=== PATIENT | female | born 1945 | race Caucasian/White ===

== ENCOUNTER 2020-12-12 13:24 | Outpatient (CLI) | payer MEDICARE, SELFPAY ==
--- NOTE | 2020-12-12 | ECG_ITS ---
Measurements Intervals [place] Rate: 64 P: 33 [place]: 160 QRS: -32 QRSD: 111 T: 49 QT: 396 QTc: 411 Interpretive Statements SINUS RHYTHM ATRIAL PREMATURE COMPLEX LEFT AXIS DEVIATION INTRAVENTRICULAR CONDUCTION DELAY DELAYED PRECORDIAL R/S TRANSITION BORDERLINE ECG Electronically Signed On 12-12-2020 14:32:11 CDT by Modesto Montgomery D.O.
[2020-12-12 13:59] LABS: Anion Gap 7 mmol/L (8-16); Blood Urea Nitrogen 36 mg/dL (7-17); Calcium 9.2 mg/dL (8.4-10.2); Carbon Dioxide 31 mmol/L (22-30); Chloride 103 mmol/L (98-107); Estimated Glomerular Filt Rate 37; Glucose 130 mg/dL (65-110); Potassium 3.9 mmol/L (3.4-5.0); Sodium 141 mmol/L (137-145)
== END 2020-12-12 13:25 | disposition home or self-care (01) ==
PROVIDERS: Visit Provider Orthopaedic Surgery
DX: Z01.818 Encounter for other preprocedural examination (principal)
CPT/HCPCS: 36415; 80048; 93005

== ENCOUNTER 2021-07-02 09:10 | Outpatient (CLI) | payer MEDICARE, SELFPAY ==
--- NOTE | 2021-07-02 09:53 | ECG_ITS ---
Measurements Intervals [place] Rate: 66 P: 53 [place]: 176 QRS: -28 QRSD: 113 T: 57 QT: 394 QTc: 415 Interpretive Statements SINUS RHYTHM INTRAVENTRICULAR CONDUCTION DELAY BASELINE WANDER- I, II, AVR, AVL, AVF, V4-V6 BORDERLINE ECG Electronically Signed On 07-02-2021 12:40:51 CDT by Modesto Montgomery D.O.
[2021-07-02 10:09] LABS: Anion Gap 7 mmol/L (8-16); Blood Urea Nitrogen 32 mg/dL (7-17); Calcium 8.9 mg/dL (8.4-10.2); Carbon Dioxide 26 mmol/L (22-30); Chloride 107 mmol/L (98-107); Estimated Glomerular Filt Rate 40; Glucose 168 mg/dL (65-110); Potassium 3.6 mmol/L (3.4-5.0); Sodium 140 mmol/L (137-145)
== END 2021-07-02 09:11 | disposition home or self-care (01) ==
PROVIDERS: Visit Provider Orthopaedic Surgery Hand Surgery
DX: M79.644 Pain in right finger(s) (principal)
CPT/HCPCS: 36415; 80048; 93005

== ENCOUNTER 2021-09-02 14:55 | Outpatient (CLI) | payer MEDICARE, SELFPAY ==
--- NOTE | ~2021-09-02 | US_ITS ---
US renal BI 09/02/2021 15:35 Procedure: Realtime transabdominal ultrasound of the kidneys and bladder. Indication: Renal failure Comparison: No prior studies for comparison. Findings: Renal echotexture is normal bilaterally without hydronephrosis, contour deforming mass or r enal calculus. There is a left renal cyst measuring 2.2 cm. The right kidney measures 9 cm and left k idney measures 9.1 cm. Bladder within normal limits. Impression: 1: Left renal cyst measuring 2.2 cm. Reviewed, dictated and finalized at location A. Impression: 1: Left renal cyst measuring 2.2 cm.
== END 2021-09-02 14:56 | disposition home or self-care (01) ==
DX: N19 Unspecified kidney failure (principal); N28.1 Cyst of kidney, acquired
CPT/HCPCS: 76775

== ENCOUNTER 2021-11-18 00:47 | Day surgery (SDC) | payer MEDICARE, SELFPAY ==
[2021-11-18 07:29] VITALS: BP 151/79; PULSE 84; RESP 18; TEMP 36.4; O2SAT 100
--- NOTE | 2021-11-18 07:30 | P.HP_ITS ---
History of Present Illness History of Present Illness Consent: Risks, benefits, and alternatives have been discussed and questions answered. Patient agrees to proceed with procedure. Chief complaint: MEE Narrative: Maddie Pitts is a 76 year old female Follow-up by Dr. Moseley. Patient recently found to have iron deficiency anemia. She is referred for colonoscopy an EGD. Patient reports that her current weight appetite and bowel movements are normal. She denies abdominal pain. She has had no bleeding. She denies any nose bleeds. She has had no bruising. No obvious bleeding elsewhere. She denies abdominal pain. So stool Cologuard test 1 year ago was unremarkable and normal. Patient has been found to have a mild anemia. Head she has not yet begun iron replacement. Plan for colonoscopy in EGD today. Small-bowel follow- through if negative. Start iron replacement after endoscopy. Follow-up CBC in 1-2 months. Further recommendations may be given after endoscopy. Review of Systems Review of Systems: Review of systems noncontributory. [facility] Family History Family History (Updated 10/08/10 @ 09:40 by DOCTOR UNKNOWN) Other Diabetes mellitus Hypertension Social History Social History Smoking status: Never smoker Alcohol intake: current Substance use type: does not use Living arrangements: with family Spiritual care concerns: No Meds Home Medications and Allergies Allergies Allergy/AdvReac Type Severity Reaction Status Date / Time No Known Allergies Allergy Mild Verified 11/18/21 07:27 Exam Narrative: Physical exam reveals patient to be alert. Vital signs stable. HEENT exam is unremarkable. Patient is anicteric. Lungs are clear to auscultation and percussion. Heart is without murmur or extra sounds. Abdomen bowel sounds are present soft nontender with no organomegaly. Digital external rectal exam is normal. Assessment and Plan Assessment and plan (1) MEE (iron deficiency anemia): Code(s): D50.9 - Iron deficiency anemia, unspecified Status: Acute Assessment and Plan: Patient with new iron deficiency anemia. Plan for colonoscopy and EGD. Start iron replacement subsequently with follow-up CBC in primary care office. Further recommendations will be given after endoscopy.
[2021-11-18] MEDS: LACTATED RINGERS 1,000 ML 150 ML IV CONT (07:38)
--- NOTE | 2021-11-18 08:22 | WPDANESEPPF ---
Anes - Initial Pre Proc Eval Procedure: Operation Date: 11/18/21 08:30 Proposed Procedures p Esophagogastroduodenoscopy & Colonoscopy - Richard Ortega MD Date/Time: 11/18/21 08:22 Surgeon: Richard Ortega MD Pre Op Diagnosis: MEE Patient Data Age: 76 Gender: F Height: Weight: 80.9 kg Last Vital Signs Temp 97.6 F 11/18/21 07:29 Pulse 84 11/18/21 07:29 Resp 18 11/18/21 07:29 BP 151/79 H 11/18/21 07:29 Pulse Ox 100 11/18/21 07:29 O2 Del Method Room Air 11/18/21 07:29 Allergies Allergy/AdvReac Type Severity Reaction Status Date / Time No Known Allergies Allergy Mild Verified 11/18/21 07:27 Home Medications Medication Instructions Recorded Confirmed Type amlodipine 5 mg tablet 5 mg PO DAILY 11/18/21 11/18/21 History aspirin 81 mg tablet,delayed 81 mg PO DAILY 11/18/21 11/18/21 History release nystatin 100,000 unit/gram topical 1 applic topical DAILY 11/18/21 11/18/21 History cream nystatin 100,000 unit/gram topical 1 applic topical DAILY 11/18/21 11/18/21 History powder (Nystop) pantoprazole 40 mg tablet,delayed 40 mg PO DAILY 11/18/21 11/18/21 History release pravastatin 40 mg tablet 40 mg PO DAILY 11/18/21 11/18/21 History Patient hx anesthesia problems: none Family hx anesthesia problems: none Results Review: All pre-operative results and documents have been reviewed as part of the pre-operative evaluation. [facility] Family History Family History (Updated 10/08/10 @ 09:40 by DOCTOR UNKNOWN) Other Diabetes mellitus Hypertension Social History Social History Smoking status: Never smoker Alcohol intake: current Substance use type: does not use Living arrangements: with family Spiritual care concerns: No Anes - Eval Final PreProcedure Day of Procedure 11/18/21 08:22 Patient weight: obese Heart: regular rate and rhythm Lungs: clear to auscultation Airway: Mallampati scale class II Neurological: alert and oriented Last oral intake: >/= 8 hours ASA classification: II Emergent: no Anesthetic plan: proceed Anesthesia type and monitoring: general GIVS and standard monitoring Results Review: All pre-operative results and documents have been reviewed as part of the pre-operative evaluation. Informed Consent: The patient's anesthetic plan and its attendant risks and benefits were discussed with the patient/family/POA. Questions were solicited and answers provided to the satisfaction of the patient/family/POA.
--- NOTE | 2021-11-18 08:44 | SUR.OPER ---
EGD end 837 COLONOSCOPY start 844
[2021-11-18 08:58] VITALS: BP 112/59; PULSE 77; RESP 15; O2SAT 96
[2021-11-18 09:08] VITALS: BP 116/56; PULSE 78; RESP 20; O2SAT 99
[2021-11-18 09:18] VITALS: BP 134/80; PULSE 71; RESP 16; O2SAT 100
== END 2021-11-18 09:28 | disposition home or self-care (01) ==
PROVIDERS: Visit Provider Internal Medicine Gastroenterology
PROC: 0DJ08ZZ Inspection of Upper Intestinal Tract, Via Natural or Artificial Opening Endoscopic (ICD-10-PCS; CPT 43235; principal; 2021-11-18 08:30)
DX: D50.9 Iron deficiency anemia, unspecified (principal); Q39.4 Esophageal web; Z79.82 Long term (current) use of aspirin; E11.9 Type 2 diabetes mellitus without complications; I10 Essential (primary) hypertension
CPT/HCPCS: 43450; 43235; J2704; J7120

== ENCOUNTER 2023-05-08 12:20 | Inpatient (IN) | payer MEDICARE, SELFPAY ==
[2023-05-08] VITALS (18 sets, daily range): BP systolic 118–140; BP diastolic 61–100; PULSE 72–94; RESP 12–20; TEMP 36.4–36.8; O2SAT 94–100; BMI 36.4
--- NOTE | ~2023-05-08 | XR_ITS ---
EXAMINATION: XR chest 1V portable DATE: 05/08/2023 12:45 INDICATION: One week of chest pain TECHNIQUE: frontal view of the chest was obtained. COMPARISON: Chest radiograph dated 11/13/2008 FINDINGS: Unchanged subtle curvilinear discoid atelectasis at the lateral left lower lung zone. No other airspa ce opacities, pulmonary edema, pleural effusion or pneumothorax. The cardiomediastinal silhouette is normal. Left rotator cuff calcific tendinitis along the greater tuberosity where there is likely asso ciated mild cystic change. IMPRESSION: 1. Unchanged mild linear discoid atelectasis/scarring at the lateral left lung base. No acute cardiop ulmonary disease. Reviewed, dictated and finalized at location A. IMPRESSION: 1. Unchanged mild linear discoid atelectasis/scarring at the lateral left lung base. No acute cardiopulmonary disease.
--- NOTE | 2023-05-08 12:36 | ECG_ITS ---
Measurements Intervals [place] Rate: 77 P: 12 MT: 150 QRS: -37 QRSD: 112 T: 89 QT: 404 QTc: 457 Interpretive Statements SINUS RHYTHM LEFT AXIS DEVIATION INTRAVENTRICULAR CONDUCTION DELAY DELAYED PRECORDIAL R/S TRANSITION VOLTAGE CRITERIA FOR LVH ANTEROSEPTAL ST ELEVATION MYOCARDIAL INFARCT- ACUTE BASELINE ARTIFACT- I, II, III, AVR, AVL, AVF ABNORMAL ECG COMPARED TO ECG 07/02/2021 09:59:21 LEFT-AXIS DEVIATION NOW PRESENT STEMI NOW PRESENT Electronically Signed On 05-08-2023 18:44:41 CDT by Modesto Montgomery D.O.
--- NOTE | 2023-05-08 12:37 | ED.CHESTPAIN ---
HPI - Chest Pain General Chief Complaint: Chest Pain <Kaity Gleason PA-C - Last Filed: 05/08/23 14:05> Stated Complaint: Chest Pain <Kaity Gleason PA-C - Last Filed: 05/08/23 14:05> Time Seen by Provider: 05/08/23 12:29 <Kaity Gleason PA-C - Last Filed: 05/08/23 14:05> History of Present Illness HPI narrative: 77-year-old female with history of hypertension, hyperlipidemia and SVT presents to the emergency department for chest pain. Patient states she walks around her neighborhood every day. During the past week, she has been developing some chest pain while walking in shortly after walking that resolved after few minutes. States today while walking, the chest pain became very severe and when she got home she had an episode of nausea and vomiting. States the chest pain is substernal and radiates to her shoulders, neck and into her cheeks. States it feels very heavy and tight. Denies personal and family history of CAD, CHF, CVA. She sees mushroom cutter, Dr. Cantu for her SVT. States she has never undergone a cardiac catheterization previously. She denies cough, congestion, fever, shortness of breath, lower extremity edema, abdominal pain, fever. States her chest pain has resolved since coming to the ED. <Kaity Gleason PA-C - Last Filed: 05/08/23 14:05> Related Data Home Medications: Home Medications Medication Instructions Recorded Confirmed amlodipine 5 mg tablet 5 mg PO DAILY 11/18/21 05/08/23 aspirin 81 mg tablet,delayed 81 mg PO DAILY 11/18/21 05/08/23 release nystatin 100,000 unit/gram topical 1 applic topical DAILY PRN Rash 11/18/21 05/08/23 cream nystatin 100,000 unit/gram topical 1 applic topical DAILY PRN Rash 11/18/21 05/08/23 powder (Nystop) pantoprazole 40 mg tablet,delayed 40 mg PO DAILY 11/18/21 05/08/23 release pravastatin 40 mg tablet 40 mg PO DAILY 11/18/21 05/08/23 ferrous sulfate 325 mg (65 mg 325 mg PO DAILY 05/08/23 05/08/23 iron) tablet,delayed release <Kaity Gleason PA-C - Last Filed: 05/08/23 14:05> Allergies/Adverse Reactions: Allergies Allergy/AdvReac Type Severity Reaction Status Date / Time No Known Allergies Allergy Mild Verified 11/18/21 07:27 <Kaity Gleason PA-C - Last Filed: 05/08/23 14:05> Review of Systems Review of Systems: CONSTITUTIONAL: Denies fever, chills, or sweats. EYES: Denies visual changes, redness, or discharge. ENT: Denies rhinorrhea, congestion, sore throat, or otalgia. CARDIOVASCULAR: See HPI RESPIRATORY: Denies cough or dyspnea. GASTROINTESTINAL: See HPI GENITOURINARY: Denies dysuria or hematuria. SKIN: Denies rash or itching. MUSCULOSKELETAL: Denies back pain, joint pain, or myalgia. NEUROLOGIC: Denies headache, numbness, or weakness. PSYCHIATRIC: Denies anxiety or depression. <Kaity Gleason PA-C - Last Filed: 05/08/23 14:05> [facility] Family History Family History: Family History (Updated 05/08/23 @ 15:35 by Juliane Mendoza RN) Mother Hypercholesteremia Father Hypercholesteremia COPD (chronic obstructive pulmonary disease) Other Diabetes mellitus Hypertension <Kaity Gleason PA-C - Last Filed: 05/08/23 14:05> Social History Social History: Social History Smoking status: Never smoker Alcohol intake: current Drinks per week: 1 Substance use: never Substance use type: does not use Do You Feel Safe in your Home?: Yes Lack of Transportation: No Lack of Food: Never True Current Housing: I Have Housing Concerned About Future Housing: No Difficulty Paying Gas/Electric Bills: No Difficulty Paying for Meds: No Currently Unemployed: No Education: Decline to Answer Difficulty w/ Childcare or Family Care: No Living arrangements: with family Spiritual care concerns: Yes ( of daughter in February of this year) <Kaity Gleason PA-C - Last Filed: 04/22
[2023-05-08] MEDS: ASPIRIN 81 MG CHEWABLE TABLET 324 MG PO (13:07)
--- NOTE | 2023-05-08 13:09 | PC.NURSE ---
Provider made aware pt took 1 81mg aspirin this AM.
[2023-05-08 13:25] LABS: Basophils Absolute Auto 0.1 K/mm3 (0.0-0.1); Basophils Percent Auto 0.6 % (0.2-1.2); Eosinophils Absolute Auto 0.2 K/mm3 (0-0.3); Eosinophils Percent Auto 1.9 % (0-4.4); Hemoglobin 12.5 g/dL (12.0-15.0); Immature Granulocyte Absolute 0.04 K/mm3 (0.00-0.031); Immature Granulocyte Percent A 0.5 % (0-0.5); Lymphocytes Percent Auto 16.5 % (18.3-44.2); Mean Corpuscular HGB Conc 30.5 g/dl (32-36); Mean Corpuscular Hemoglobin 24.9 pg (26-34); Mean Corpuscular Volume 81.5 fl (80-100); Mean Platelet Volume 9.6 fl (7.4-10.4); Monocytes Absolute Auto 0.8 K/mm3 (0.1-0.6); Monocytes Percent Auto 8.9 % (2.6-8.5); Neutrophils Absolute Auto 6.1 K/mm3 (1.3-6.7); Neutrophils Percent Auto 71.6 % (45.5-73.1); Platelet Count Result 295 k/mm3 (150-375); Red Blood Count 5.03 M/mm3 (4.2-5.4); Red Cell Distribution Width 14.4 % (11.5-14.5); White Blood Count 8.5 K/mm3 (4.5-10.0)
[2023-05-08 13:28] LABS: Alanine Aminotransferase 24 U/L (6-35); Albumin Level 3.9 g/dL (3.5-5.1); Alkaline Phosphatase 95 U/L (38-126); Anion Gap 2 mmol/L (8-16); Aspartate Amino Transferase 39 U/L (14-36); Bilirubin,Total 0.4 mg/dL (0.2-1.3); Blood Urea Nitrogen 21 mg/dL (7-17); Calcium 8.9 mg/dL (8.4-10.2); Carbon Dioxide 27 mmol/L (22-30); Chloride 109 mmol/L (98-107); Estimated CRCL calculation 47 ml/min; Estimated Glomerular Filt Rate > 60; Glucose 164 mg/dL (65-110); INR 0.9; Lipase 109 U/L (23-300); Prothrombin Time 12.9 Seconds (11.1-14.7); Sodium 138 mmol/L (137-145)
[2023-05-08 13:29] LABS: Partial Thromboplastin Time 29.5 Seconds (22.3-36.8)
[2023-05-08] MEDS: TICAGRELOR 90 MG TABLET 180 MG PO (13:34)
[2023-05-08] MEDS: HEPARIN SODIUM 5,000 UNITS/ML VIAL 4000 UNITS IV PUSH (13:34)
--- NOTE | 2023-05-08 13:34 | PC.NURSE ---
[facility] [address] Cantu 1325 [facility] ETA 25min
[2023-05-08 13:41] LABS: NT Pro B Type Natriuretic Pept 6350 pg/mL (19.9-100)
--- NOTE | 2023-05-08 13:53 | PM.IMHP ---
H&P: HPI History of Present Illness Date/Time: 05/08/23 13:53 Chief Complaint: Chest pain Narrative: this is a 77-year-old woman who presents to the emergency room today with a history of chest pain and STEMI has been activated by the ED staff. She has no previous history of coronary artery disease and has been experiencing episodes of chest pain with walking and exertion for the last week to 10 days. She is going on walks with her for exercise and is notice that she develops a central chest burning discomfort that seems to be going away with rest. This morning when she went on their walk she had this same symptom and with rest it did not resolve readily and so they decided to come to the hospital for evaluation. Upon arrival her ECG was concerning for evidence of anteroseptal ST segment elevation particularly in lead V2. His very subtle ST elevation in leads 1 and aVL as well. The previous ECG in her chart do not show these findings. Interestingly her chest pain seems to have resolved in the emergency room without specific treatment or intervention. Because of these findings and the ECG abnormalities STEMI has been activated and plans are being made for emergent angiography. She is comfortable at this time and does not have any complaints. She does have a previous cardiac history of supraventricular tachycardia which she says has not been problematic recently. Past medical history is otherwise remarkable for hypertension and dyslipidemia. Review of Systems Review of Systems: ROS unobtainable: Yes unobtainable due to medical condition [facility] Family History Family History Other Diabetes mellitus Hypertension Social History Social History Smoking status: Never smoker Alcohol intake: current Substance use type: does not use Living arrangements: with family Spiritual care concerns: No Meds Home Medications and Allergies Home Medications Medication Instructions Recorded Confirmed Type amlodipine 5 mg tablet 5 mg PO DAILY 11/18/21 11/18/21 History aspirin 81 mg tablet,delayed 81 mg PO DAILY 11/18/21 11/18/21 History release nystatin 100,000 unit/gram topical 1 applic topical DAILY 11/18/21 11/18/21 History cream nystatin 100,000 unit/gram topical 1 applic topical DAILY 11/18/21 11/18/21 History powder (Nystop) pantoprazole 40 mg tablet,delayed 40 mg PO DAILY 11/18/21 11/18/21 History release pravastatin 40 mg tablet 40 mg PO DAILY 11/18/21 11/18/21 History ferrous sulfate 325 mg (65 mg 325 mg PO BID #60 tabs 11/25/21 Rx iron) tablet,delayed release Allergies Allergy/AdvReac Type Severity Reaction Status Date / Time No Known Allergies Allergy Mild Verified 11/18/21 07:27 Vital Signs Vital Signs - 24 hr 05/08/23 13:10 05/08/23 13:13 05/08/23 13:24 Temperature 36.8 C Pulse Rate 77 82 Respiratory Rate 12 19 Blood Pressure 131/86 138/76 Pulse Oximetry 100 100 Oxygen Delivery Room Air Room Air Exam Const: General: comfortable and no acute distress Other: Pleasant white female appearing her stated age in no distress of any kind HENMT: Mouth: Yes moist mucous membranes Eyes: Sclera: sclerae normal Neck: Neck: supple Other: normal carotid pulses Resp: Effort & Inspection: normal respiratory effort Auscultation: clear to auscultation bilaterally Cardio: Rate: regular rate Rhythm: regular rhythm Other: no murmur no gallop GI: GI Palp: Yes Soft to palpation Auscultation: normal bowel sounds Skin: General skin exam: normal color Neuro: Other: alert and oriented x3 Extrem: Other: no edema, good distal perfusion H&P: Results Labs Labs: Short CBC 05/08/23 Range/Units 13:10 WBC 8.5 (4.5-10.0) K/mm3 Hgb 12.5 (12.0-15.0) g/dL Hct 41.0 (37.0-47.0) % Plt Count 295 (15
--- NOTE | 2023-05-08 14:47 | ECG_ITS ---
Measurements Intervals [place] Rate: 75 P: 48 [place]: 172 QRS: -41 QRSD: 128 T: 102 QT: 402 QTc: 451 Interpretive Statements SINUS RHYTHM LEFT AXIS DEVIATION INTRAVENTRICULAR CONDUCTION DELAY SEPTAL INFARCT, RECENT BASELINE ARTIFACT- I, II, III, AVR, AVL, AVF, V4-V6 ABNORMAL ECG COMPARED TO ECG 05/08/2023 13:16:22 ST ELEVATION IMPROVING Electronically Signed On 05-08-2023 18:55:26 CDT by Modesto Montgomery D.O.
--- NOTE | 2023-05-08 14:51 | WPDCARDPROC ---
Cardiac Cath Procedure Note Date of procedure:: 05/08/23 Performing physician:: Fidel Cantu MD Indication:: ST elevation CO Brief clinical history:: this is a 77-year-old woman without any prior history of coronary disease who has been exertional chest pain for approximately 1-2 weeks. This morning she experienced exertional chest pain that did not resolve with rest and so she came to the emergency room for evaluation. Her electrocardiogram demonstrates anterior septal ST elevation. At that time in the emergency room by the time that was done she is once again asymptomatic. Because of the history and ST segment changes emergency STEMI was declared. Procedure Procedure performed:: Emergency coronary angiography emergency PCI(SIOBHAN) to the proximal LAD left ventriculography Sedation/Medication given:: fentanyl 50 mg Versed 2 mg case start time 2:03 p.m. case end time 2:38 p.m. sedation provided by Trisha Scott RN, trained observer Access site:: right femoral artery Estimated blood loss:: 30 cc Procedure note:: patient was brought to the cardiac catheterization lab in the postabsorptive state where the right femoral triangle was prepared and draped in the normal fashion. Anesthesia was provided with 1% lidocaine infiltrated locally. Using the modified Seldinger technique the femoral artery was punctured and a 6 Italian vascular sheath was placed. After this I used a 5 Italian JR4 catheter to engage and inject the right coronary artery in orthogonal projections. Following this I used a 6 Italian JL4 guiding catheter to engage and inject the left coronary artery in multiple projections. The cineangiograms were then reviewed and emergency PCI of the LAD was recommended and carried out as detailed below. Prior to PCI the patient received bolus infusion of bivalirudin for procedural anticoagulation. She had a Radi received aspirin and a loading dose of Brilinta in the emergency department. Following completion of PCI as detailed below the guidewire guiding catheter was removed and a 5 Italian angled pigtail catheter was used to measure left-sided hemodynamics and to inject the left ventriculogram in the are AO projection. The case was then terminated the sheath was sutured into position the patient was taken to the ICU for post mi/PCI recovery. Findings:: Hemodynamics: Central aortic pressure is 1 24 56 left ventricle 124/0 end-diastolic pressure 20 there is no gradient on pullback across the aortic valve. Left ventricle: The LV is moderately enlarged the entire anterior wall apical and anterolateral segments are akinetic. The global ejection fraction is 25% by visual estimation. The left coronary artery is medium in caliber but is patent the left anterior descending is a smaller caliber vessel extending down to the apex. The LAD has a subtotal 99% stenosis involving the origin of a small proximal diagonal branch. The diagonal branch has JCARLOS 1 flow in it the LAD has also JCARLOS 1 flow. This is the culprit for the patient's presentation. The circumflex is a medium caliber artery giving rise to the marginal branches. The trunk of the circumflex between the 1st and 2nd marginal branch has significant disease after the 1st OM there is about 70% stenosis and just prior to the 2nd OM there is 90% stenosis. There is however JCARLOS 3 flow in the circumflex. The right coronary artery is small to medium in caliber it is dominant to the posterior circulation there is about 50-60% stenosis in the 2nd portion of the RCA. There was JCARLOS 3 flow in this vessel. Intervention: The LAD was wired using the 0.014 aeroplane pilot 150 guidewire. This was advanced into the distal LAD there was some challenge in wiring the LAD is it had a angulated takeoff from the left main ultimately after several attempts this was done successfully. The lesion was then pre-dilated using a 2.5 x 20 mm Panterra angioplasty balloon. The eli
--- NOTE | 2023-05-08 14:59 | ADMGEN ---
This patient, Maddie Pitts, was admitted to Intensive Care Unit-5 at 1452. Patient/family oriented to hospital policies and general routines including ID bracelet, bed and alarms, visiting hours, pain management, procedures, bathroom and other care routines, personal items, smoking policy, room service/diet, and visiting hours. Information on how to activate the Rapid Response Team has been discussed. Patient/Family are encouraged to report perceived risks to care and to ask questions if they do not understand what they are told or what they should do.
[2023-05-08] MEDS: SODIUM CHLORIDE 0.9% IV 1,000 ML 125 ML IV CONT (15:30)
[2023-05-08 18:42] LABS: Cholesterol 174 mg/dL (0-200); HDL Direct 63 mg/dL; Triglycerides 206 mg/dL (<150)
[2023-05-08 18:53] LABS: LDL Cholesterol Direct 95 mg/dL
[2023-05-08] MEDS: TICAGRELOR 90 MG TABLET PO (21:58)
[2023-05-09] VITALS (35 sets, daily range): BP systolic 124–145; BP diastolic 61–117; PULSE 75–111; RESP 13–30; TEMP 36.2–37; O2SAT 95–100
--- NOTE | 2023-05-09 05:11 | ECG_ITS ---
Measurements Intervals [place] Rate: 89 P: 48 [place]: 170 QRS: -47 QRSD: 126 T: 113 QT: 376 QTc: 459 Interpretive Statements SINUS RHYTHM LEFT ANTERIOR FASCICULAR BLOCK ANTEROSEPTAL INFARCT, RECENT ABNORMAL ECG COMPARED TO ECG 05/08/2023 17:27:42 LEFT ANTERIOR FASCICULAR BLOCK NOW PRESENT Electronically Signed On 05-09-2023 13:26:41 CDT by Modesto Montgomery D.O.
[2023-05-09] MEDS: ROSUVASTATIN 10 MG TABLET 20 MG PO (08:45)
[2023-05-09] MEDS: LOSARTAN POTASSIUM 12.5 MG TABLET PO (08:45)
[2023-05-09] MEDS: ASPIRIN 81 MG CHEWABLE TABLET PO (08:45)
[2023-05-09] MEDS: TICAGRELOR 90 MG TABLET PO ×2 (08:46→20:22)
[2023-05-09] MEDS: METOPROLOL SUCCINATE EXT REL 25 MG TABCR PO (08:46)
--- NOTE | 2023-05-09 09:24 | PM.PNCARD ---
Progress Note: A&P Assessment and Plan (1) ST elevation (STEMI) myocardial infarction: Qualifiers: Involved coronary artery: unspecified coronary artery Qualified Code(s): I21.3 - ST elevation (STEMI) myocardial infarction of unspecified site Code(s): I21.3 - ST elevation (STEMI) myocardial infarction of unspecified site Status: Acute Plan 77-year-old lady with: New diagnosis of coronary artery disease presenting with acute anterior infarction yesterday with subtotal stenosis of the proximal LAD addressed with emergency stenting. Vessel is otherwise diffusely diseased but patent. She was also found to have high-grade stenosis in the trunk of the circumflex between the 1st and 2nd marginal branches as well as poor left ventricular systolic function with akinesis of the anterolateral wall. Because of this and low ejection fraction plan at the moment is for medical therapy and then staged PCI of the high-grade circumflex disease in the future. Will advance her losartan dosage today she can move out of ICU and anticipate discharge possibly in 24-48 hours depending on clinical course. Fidel Cantu MD [facility] Subjective Date/time seen: Date of service 05/09/23 09:24 Interval history: Follow-up visit in this 77-year-old lady with: New diagnosis of coronary artery disease presenting yesterday with chest pain ST elevation [place]. She was brought to the cardiac laborer wrecking and salvaging and had subtotal stenosis of the proximal LAD addressed successfully with drug-eluting stent. She feels well this morning and offers no complaints. Exam Const: General: comfortable and no acute distress Other: Pleasant overweight white female no apparent distress HENMT: Mouth: Yes moist mucous membranes Eyes: Sclera: sclerae normal Neck: Neck: supple and no JVD Resp: Effort & Inspection: normal respiratory effort Auscultation: clear to auscultation bilaterally Cardio: Rate: regular rate Rhythm: regular rhythm GI: GI Palp: Yes Soft to palpation Auscultation: normal bowel sounds Skin: General skin exam: normal color Neuro: Other: Alert and oriented x3 Extrem: Other: No edema, no hematoma at right groin puncture site Objective Data Vital Signs Vital Signs: Vital Signs - 24 hr 05/08/23 13:10 05/08/23 13:13 05/08/23 13:24 Temperature 36.8 C Pulse Rate 77 82 Respiratory Rate 12 19 Blood Pressure 131/86 138/76 Pulse Oximetry 100 100 Oxygen Delivery Room Air Room Air 05/08/23 14:47 05/08/23 15:02 05/08/23 15:32 Temperature Pulse Rate 76 82 72 Respiratory Rate 19 17 15 Blood Pressure 127/71 126/75 125/63 Pulse Oximetry 98 97 100 Oxygen Delivery 05/08/23 16:32 05/08/23 16:00 05/08/23 16:00 Temperature Pulse Rate 78 73 73 Respiratory Rate 15 17 Blood Pressure 123/65 Pulse Oximetry 100 100 Oxygen Delivery Room Air 05/08/23 18:00 05/08/23 18:00 05/08/23 18:30 Temperature Pulse Rate 78 79 74 Respiratory Rate 14 16 Blood Pressure 138/77 140/61 Pulse Oximetry 100 98 Oxygen Delivery 05/08/23 20:00 05/08/23 20:00 05/08/23 20:00 Temperature 36.4 C L Pulse Rate 77 76 Respiratory Rate 18 Blood Pressure 124/67 Pulse Oximetry 96 Oxygen Delivery Room Air 05/08/23 21:00 05/08/23 22:00 05/09/23 00:00 Temperature Pulse Rate 80 94 Respiratory Rate 19 Blood Pressure 137/68 Pulse Oximetry 95 Oxygen Delivery Room Air 05/09/23 00:00 05/09/23 02:00 05/09/23 04:00 Temperature Pulse Rate 86 86 Respiratory Rate Blood Pressure Pulse Oximetry Oxygen Delivery Room Air 05/08/23 22:16 05/08/23 22:31 05/08/23 22:46 Temperature Pulse Rate 82 82 84 Respiratory Rate 20 18 19 Blood Pressure 136/65 135/64 124/75 Pulse Oximetry 95 94 97 Oxygen Delivery 05/08/23 23:17 05/08/23 23:31 05/08/23 23:46 Temperature Pulse Rate 81 84 81 Respiratory Rate 17 14 12 Blood Pressure 139/76 118/100 H 131/7
--- NOTE | 2023-05-09 09:46 | WPDCNINT ---
Assessment and Plan Assessment and plan (1) ST elevation (STEMI) myocardial infarction: Qualifiers: Involved coronary artery: unspecified coronary artery Qualified Code(s): I21.3 - ST elevation (STEMI) myocardial infarction of unspecified site Code(s): I21.3 - ST elevation (STEMI) myocardial infarction of unspecified site Status: Acute Assessment and Plan: Status post cardiac catheterization 1.? ? Right coronary dominant circulation with three-vessel coronary artery disease acute anterior wall IN is due to subtotal occlusion of the proximal LAD with a medium size LAD and the stenosis is at the origin of the 1st medium size diagonal branch. 2.? ? Successful emergency PCI of this lesion using the 2.75 x 18 mm Yassetsiro? stent in this segment of the LAD resulting in a nice angiographic result at the site of the target lesion.? There is JCARLOS 3 flow into the LAD down to the apex the distal LAD in this elderly lady is angiographically quite small.? Once again the diagonal is jailed and occluded by this intervention 3. ? 90% stenosis in the circumflex trunk between the 1st and 2nd marginal branches. 4.? ? 50-60% stenosis in the 2nd portion of the RCA 5. ? severe left ventricular systolic dysfunction hoping most of this is stunned myocardium as the LAD was not occluded and the anterior leads in the patient's ECG do not demonstrate Q-waves. 6.? ? If the patient remains stable PCI of the circumflex disease will be done in a staged fashion following discharge from and recovery from this emergency.? Very poor LV function at this time would make PCI of the non infarct related vessel rather high risk Cardiology plans to do repeat cardiac catheterization and attempt PCI of circumflex artery as an outpatient Aspirin Brilinta metoprolol losartan rosuvastatin nurse monitoring Echo ordered (2) Essential hypertension: Code(s): I10 - Essential (primary) hypertension Status: Acute Assessment and Plan: Patient was on amlodipine at home and has now been started on beta-german and losartan Will uptitrate does and re add Norvasc if needed (3) Hyperlipidemia: Code(s): E78.5 - Hyperlipidemia, unspecified Status: Acute Assessment and Plan: Rosuvastatin Plan DVT prophylaxis -anticipate patient will ambulate today Nutrition -heart healthy Code Status - Full Code Transfer out of ICU today Sieve Repairer Consult Note Consult date: 05/09/23 Reason for consult: STEMI HPI: Maddie Pitts is a 77 year old female with past medical history of hyperlipidemia hypertension SVT presented to ER with chief complaint of chest pain. Chest pain started while walking, 10 out 10 severe, heaviness and tightness in quality, associated with nausea vomiting, radiated to her shoulder and neck. All other systems were reviewed and were negative. Patient presented to ER and was diagnosed with ST segment elevation [place]. she was taken to cardiac catheterization lab and underwent cardiac catheterization which showed 1.? ? Right coronary dominant circulation with three-vessel coronary artery disease acute anterior wall IN is due to subtotal occlusion of the proximal LAD with a medium size LAD and the stenosis is at the origin of the 1st medium size diagonal branch. 2.? ? Successful emergency PCI of this lesion using the 2.75 x 18 mm Yassetsiro? stent in this segment of the LAD resulting in a nice angiographic result at the site of the target lesion.? There is JCARLOS 3 flow into the LAD down to the apex the distal LAD in this elderly lady is angiographically quite small.? Once again the diagonal is jailed and occluded by this intervention 3. ? 90% stenosis in the circumflex trunk between the 1st and 2nd marginal branches. 4.? ? 50-60% stenosis in the 2nd portion of the RCA 5. ? severe left ventricular systolic dysfunction hoping most of this is stunned myocardium as the LAD was not occluded and the anterior leads in the patient's ECG do not demonst
[2023-05-10] VITALS (15 sets, daily range): BP systolic 110–134; BP diastolic 54–80; PULSE 7–163; RESP 18–26; TEMP 36.8–36.9; O2SAT 92–97
--- NOTE | 2023-05-10 | ECHO_ITS ---
Patient Info Name: Maddie Pitts Age: 77 years : 1945 Gender: Female Ht: 61 in Wt: 192 lbs BSA: 1.98 m2 HR: 75 bpm BP: 113 / 80 mmHg Heart Rhythm: Sinus Rhythm Technical Quality: Good Exam Date: 05/10/2023 6:37 AM Exam Location: Echo Lab Patient Status: Inpatient Admit Date: 05/08/2023 Staff Ordering Physician: Shai Bustamante MD Associate Attorney: Lilli Baron RDCS Attending Provider: Fidel Cantu MD Exam Type: CA echo dop color flow w con Study Info Indications - stemi Complete two-dimensional, color flow and Doppler transthoracic echocardiogram is performed with contrast to opacify the left ventricle and to improve the deliniation of the left ventricle endocardial borders. Contrast/Agitated Saline Contrast/Ag. Saline: Definity Amount: 2.00 ml Administered By: Lilli Baron RDCS Existing IV Access: Yes IV Access Condition: patent with no signs of infiltration Summary 1. Definity contrast used to improve visualization. 2. Mild left ventricular enlargement with large area of akinesis involving the mid to apical anterior wall, mid to apical septum, apical lateral wall and dyskinesis of the apex. 3. Mildly sclerotic aortic valve which opens normally. 4. Trivial mitral and tricuspid valve regurgitation. Left Ventricle Left ventricular chamber dimension is mildly enlarged. Left ventricular systolic function is severely reduced, estimated at 25-30%. The left ventricular diastolic function is grade I diastolic dysfunction. Right Ventricle Right ventricular chamber dimension is normal. Left Atria Left atrial chamber dimension is normal. Right Atria Right atrial chamber dimension is normal. Aortic Valve The aortic valve is trileaflet. There is mild aortic valve sclerosis. Pulmonic Valve The pulmonic valve is not well visualized. Mitral Valve The mitral valve has normal leaflets. There is trace mitral valve regurgitation. Tricuspid Valve The tricuspid valve leaflets are normal. There is trace tricuspid valve regurgitation. Pericardium/Pleural The pericardium appears normal. Aorta The aortic root size at the sinus of Valsalva is normal. Left Ventricular Outflow Tract Name Value Normal LVOT 2D LVOT Diameter 1.95 cm LVOT Doppler LVOT Peak Gradient 4 mmHg LVOT Mean Gradient 2 mmHg LVOT VTI 15.98 cm LVOT VTI/AV VTI Ratio 0.55 LVOT Stroke Volume 47.77 ml LVOT CO 3.61 l/min LVOT CI 1.83 L/min/m2 Pulmonic Valve Name Value Normal RVOT Doppler RVOT Peak Gradient 2 mmHg PV Doppler PV Peak Gradient 4 mmHg Mitral Valve
[2023-05-10] MEDS: PERFLUTREN LIPID MICROSPHERES 1.5 ML VIAL DILUTED TO 10 ML TOTAL VOLUME IV PUSH (08:14)
[2023-05-10] MEDS: ASPIRIN 81 MG CHEWABLE TABLET PO (08:58)
[2023-05-10] MEDS: FERROUS SULFATE 325 MG TABLET DR PO (08:58)
[2023-05-10] MEDS: LOSARTAN POTASSIUM 25 MG TABLET PO (08:58)
[2023-05-10] MEDS: METOPROLOL SUCCINATE EXT REL 25 MG TABCR PO (08:59)
[2023-05-10] MEDS: ROSUVASTATIN 10 MG TABLET 20 MG PO (08:59)
[2023-05-10] MEDS: PANTOPRAZOLE 40 MG TABLET PO (08:59)
[2023-05-10] MEDS: TICAGRELOR 90 MG TABLET PO ×2 (08:59→20:04)
--- NOTE | 2023-05-10 09:10 | PM.PNCARD ---
Progress Note: A&P Assessment and Plan (1) ST elevation (STEMI) myocardial infarction: Qualifiers: Involved coronary artery: unspecified coronary artery Qualified Code(s): I21.3 - ST elevation (STEMI) myocardial infarction of unspecified site Code(s): I21.3 - ST elevation (STEMI) myocardial infarction of unspecified site Status: Acute Assessment and Plan: New diagnosis of coronary artery disease presenting with acute anterior infarction yesterday with subtotal stenosis of the proximal LAD addressed with emergency stenting. Vessel is otherwise diffusely diseased but patent. She was also found to have high-grade stenosis in the trunk of the circumflex between the 1st and 2nd marginal branches as well as poor left ventricular systolic function with akinesis of the anterolateral wall. DAPT with ASA indefinitely and Brilinta for one year High intensity statin Risk factor modification for CAD staged PCI of the high-grade circumflex disease in the future Probably discharge tomorrow (2) Essential hypertension: Code(s): I10 - Essential (primary) hypertension Status: Acute Assessment and Plan: At goal (3) Hyperlipidemia: Code(s): E78.5 - Hyperlipidemia, unspecified Status: Acute Assessment and Plan: Continue high intensity statin, LDL goal <70 (4) Atrial fibrillation: Code(s): I48.91 - Unspecified atrial fibrillation Status: Acute Assessment and Plan: Episode of atrial fibrillation with RVR this morning. She was placed on an amiodarone drip and converted to sinus rhythm. Will stop amiodarone drip at this point and have no current plans to anticoagulate her as her AF was very brief and we want to avoid triple therapy with ASA, Brilinta, and DOAC Subjective Date/time seen: 05/10/23 09:10 Interval history: Follow-up visit in this 77-year-old lady with: New diagnosis of coronary artery disease presenting yesterday with chest pain ST elevation [place]. She was brought to the cardiac director of cardiac cath lab and had subtotal stenosis of the proximal LAD addressed successfully with drug-eluting stent. She feels well this morning and offers no complaints. Date of service 05/10/2023: Went into AF RVR while ambulating to the bathroom this morning. She was asymptomatic. She denies any chest pain or shortness of breath. Review of Systems Review of Systems: All systems reviewed & are unremarkable except as noted in HPI and below Exam Const: General: comfortable and no acute distress Other: Pleasant overweight white female no apparent distress. Lying comfortably in ICU bed 5 with her at the bedside. HENMT: Mouth: Yes moist mucous membranes Eyes: Sclera: sclerae normal Neck: Neck: supple and no JVD Other: normal carotid pulses Resp: Effort & Inspection: normal respiratory effort Auscultation: clear to auscultation bilaterally Cardio: Rate: regular rate Rhythm: regular rhythm Other: no murmur no gallop GI: Auscultation: normal bowel sounds Skin: General skin exam: normal color Neuro: Other: Alert and oriented x3 Extrem: Other: No edema, no hematoma at right groin puncture site Objective Data Vital Signs Vital Signs: Vital Signs - 24 hr 05/09/23 10:00 05/09/23 10:00 05/09/23 12:00 Temperature Pulse Rate 88 88 Respiratory Rate 18 Blood Pressure 124/77 Pulse Oximetry 98 98 Oxygen Delivery Room Air 05/09/23 12:00 05/09/23 12:00 05/09/23 12:31 Temperature 37.0 C Pulse Rate 101 H 83 Respiratory Rate 20 Blood Pressure 127/68 Pulse Oximetry 100 Oxygen Delivery 05/09/23 14:00 05/09/23 16:00 05/09/23 16:00 Temperature 36.9 C Pulse Rate 86 95 80 Respiratory Rate 20 Blood Pressure 125/72 Pulse Oximetry 100 Oxygen Delivery 05/09/23 16:00 05/09/23 18:00 05/09/23 20:00 Temperature Pulse Rate 89 94 Respiratory Rate Blood Pressure Puls
--- NOTE | 2023-05-10 09:12 | ECG_ITS ---
Measurements Intervals [place] Rate: 136 P: [place]: 0 QRS: -36 QRSD: 122 T: 130 QT: 288 QTc: 433 Interpretive Statements ATRIAL FIBRILLATION WITH RAPID VENTRICULAR RESPONSE LEFT AXIS DEVIATION INTRAVENTRICULAR CONDUCTION DELAY LEFT VENTRICULAR HYPERTROPHY WITH ST-T CHANGE ANTEROSEPTAL ST ELEVATION MYOCARIDAL INJURY- ACUTE BASELINE ARTIFACT- I, II, III, AVR, AVL, AVF, V6 ABNORMAL ECG COMPARED TO ECG 05/09/2023 09:02:48 ATRIAL FIBRILLATION NOW PRESENT LEFT-AXIS DEVIATION NOW PRESENT STEMI NOW PRESSENT Electronically Signed On 05-10-2023 10:26:28 CDT by Modesto Montgomery D.O.
[2023-05-10] MEDS: AMIODARONE 150 MG/D5W 100 ML 150 MG/100 ML BAG 600 MG IV CONT (10:03)
[2023-05-10] MEDS: AMIODARONE 360 MG/D5W 200 ML 360 MG/200 ML BAG 33.33 MG IV CONT (10:03)
--- NOTE | 2023-05-10 11:47 | IVDEFINITY ---
Prior to administration of IV Definity the patient was educated on the risks and benefits of the imaging enhancing agent including potential adverse side effects. The patient verbalized understanding. Allergies were verified. No exclusion criteria were identified and at least one of the following inclusion criteria were met: 1) physician request, 2) patient technically difficult to image (per the [place] [employer] guidelines of two or more segments not discernable within the apical view), or 3) questionable left ventricular function. ?
[2023-05-11] VITALS (9 sets, daily range): BP systolic 122–130; BP diastolic 54–88; PULSE 75–94; RESP 14–20; TEMP 36.8–37; O2SAT 95–97
--- NOTE | 2023-05-11 08:52 | PM.DS ---
DS: Admitting Diagnosis Discharge Date 05/11/2023 Admitting Diagnosis STEMI DS: Discharge Diagnosis Discharge Diagnosis (1) ST elevation (STEMI) myocardial infarction: Qualifiers: Involved coronary artery: unspecified coronary artery Qualified Code(s): I21.3 - ST elevation (STEMI) myocardial infarction of unspecified site Code(s): I21.3 - ST elevation (STEMI) myocardial infarction of unspecified site Status: Acute Assessment and Plan: New diagnosis of coronary artery disease presenting with acute anterior infarction yesterday with subtotal stenosis of the proximal LAD addressed with emergency stenting. Vessel is otherwise diffusely diseased but patent. She was also found to have high-grade stenosis in the trunk of the circumflex between the 1st and 2nd marginal branches as well as poor left ventricular systolic function with akinesis of the anterolateral wall. DAPT with ASA indefinitely and Brilinta for one year High intensity statin Risk factor modification for CAD staged PCI of the high-grade circumflex disease in the future Stable and appropriate for discharge today Will arrange for outpatient follow up (2) Essential hypertension: Code(s): I10 - Essential (primary) hypertension Status: Acute Assessment and Plan: At goal (3) Hyperlipidemia: Code(s): E78.5 - Hyperlipidemia, unspecified Status: Acute Assessment and Plan: Continue high intensity statin, LDL goal <70 (4) Atrial fibrillation: Code(s): I48.91 - Unspecified atrial fibrillation Status: Acute Assessment and Plan: Episode of atrial fibrillation with RVR yesterday. She was placed on an amiodarone drip and converted to sinus rhythm. Will stop amiodarone drip at this point and have no current plans to anticoagulate her as her AF was very brief and we want to avoid triple therapy with ASA, Brilinta, and DOAC DS: Summary Hospital Course Hospital Course: Presented with chest pain and was diagnosed with ST segment elevation [place]. she was taken to cardiac catheterization lab and underwent cardiac catheterization which showed 1. Right coronary dominant circulation with three-vessel coronary artery disease acute anterior wall IN is due to subtotal occlusion of the proximal LAD with a medium size LAD and the stenosis is at the origin of the 1st medium size diagonal branch. 2. Successful emergency PCI of this lesion using the 2.75 x 18 mm Orsiro stent in this segment of the LAD resulting in a nice angiographic result at the site of the target lesion. There is JCARLOS 3 flow into the LAD down to the apex the distal LAD in this elderly lady is angiographically quite small. Once again the diagonal is jailed and occluded by this intervention 3. 90% stenosis in the circumflex trunk between the 1st and 2nd marginal branches. 4. 50-60% stenosis in the 2nd portion of the RCA 5. severe left ventricular systolic dysfunction hoping most of this is stunned myocardium as the LAD was not occluded and the anterior leads in the patient's ECG do not demonstrate Q-waves. 6. If the patient remains stable PCI of the circumflex disease will be done in a staged fashion following discharge from and recovery from this emergency. Very poor LV function at this time would make PCI of the non infarct related vessel rather high risk She recovered well post PCI and had no significant complications. She did have brief atrial fibrillation but converted back to sinus rhythm on amiodarone. Time Spent with Patient Time attestation: Total time spent providing and/or coordinating discharge services: Exam Const: General: comfortable and no acute distress Other: Pleasant overweight white female no apparent distress. Lying comfortably in ICU bed 5 with her at the bedside. HENMT: Mouth: Yes moist mucous membranes Eyes: Sclera: sclerae normal Neck: Neck: supple and no JVD Other: normal carotid
[2023-05-11] MEDS: ROSUVASTATIN 10 MG TABLET 20 MG PO (08:58)
[2023-05-11] MEDS: TICAGRELOR 90 MG TABLET PO (08:58)
[2023-05-11] MEDS: ASPIRIN 81 MG CHEWABLE TABLET PO (08:58)
[2023-05-11] MEDS: LOSARTAN POTASSIUM 25 MG TABLET PO (08:58)
[2023-05-11] MEDS: PANTOPRAZOLE 40 MG TABLET PO (08:58)
[2023-05-11] MEDS: METOPROLOL SUCCINATE EXT REL 25 MG TABCR PO (08:58)
[2023-05-11] MEDS: FERROUS SULFATE 325 MG TABLET DR PO (08:59)
--- NOTE | 2023-05-11 09:11 | PC.NURSE ---
Assisted patient up to bedside commode without issue. No sign or symptom of distress noted.
== END 2023-05-11 12:40 | disposition home or self-care (01) | DRG 322 ==
LOC: ANHED 12:46 → ANHICU 14:25
PROVIDERS: Admitting Provider Specialist; Emergency Provider Physician Assistant; Visit Provider Nurse Practitioner
PROC: 4A023N7 Measurement of Cardiac Sampling and Pressure, Left Heart, Percutaneous Approach (ICD-10-PCS; CPT 93452; principal; 2023-05-08 13:40)
PROC: 027034Z Dilation of Coronary Artery, One Artery with Drug-eluting Intraluminal Device, Percutaneous Approach (ICD-10-PCS; 2023-05-08 13:40)
DX: I21.3 ST elevation (STEMI) myocardial infarction of unspecified site (principal); T82.897A Other specified complication of cardiac prosthetic devices, implants and grafts, initial encounter; I47.10 Supraventricular tachycardia, unspecified; Y71.2 Prosthetic and other implants, materials and accessory cardiovascular devices associated with adverse incidents; I25.10 Atherosclerotic heart disease of native coronary artery without angina pectoris; I10 Essential (primary) hypertension; E78.5 Hyperlipidemia, unspecified; Z79.82 Long term (current) use of aspirin
CPT/HCPCS: 36415; 71045; 80053; 80061; 83690; 83880; 84484; 85025; 85610; 85730; 93005; 93458; 96374; 99285; A9270; C1725; C1769; C1784; C1887; C1894; C8929; C9606; J0282; J0583; J1644; J2250; J3010; J7030; Q9957

== ENCOUNTER 2023-05-22 07:25 | Observation (INO) | payer MEDICARE, SELFPAY ==
[2023-05-22] VITALS (23 sets, daily range): BP systolic 116–138; BP diastolic 50–107; PULSE 65–149; RESP 15–21; TEMP 36.2–36.7; O2SAT 94–99; BMI 33.1
--- NOTE | ~2023-05-22 | XR_ITS ---
XR chest 2V DATE: 05/22/2023 08:20 INDICATION: Elevated heart rate. History of atrial fibrillation. TECHNIQUE: PA and lateral views COMPARISON: 05/08/2023 portable AP chest FINDINGS: There are bilateral Kaitlin B-lines and prominence of the fissures and small pleural effusio ns, consistent with mild congestive change. Heart size appears within normal range. Is aortic arch calcification. No pulmonary consolidation or pneumothorax. Status post cholecystectomy. IMPRESSION: Pulmonary interstitial and subpleural edema and small pleural effusions consistent with m ild congestive change Reviewed, dictated and finalized at location A. IMPRESSION: Pulmonary interstitial and subpleural edema and small pleural effus ions consistent with mild congestive change
--- NOTE | 2023-05-22 07:31 | ECG_ITS ---
Measurements Intervals [place] Rate: 157 P: IN: 0 QRS: -49 QRSD: 105 T: 131 QT: 274 QTc: 443 Interpretive Statements ATRIAL FIBRILLATION WITH RAPID VENTRICULAR RESPONSE LEFT ANTERIOR FASCICULAR BLOCK CANNOT RULE OUT SEPTAL INFARCT, AGE INDETERMINATE ST-T WAVE ABNORMALITY IN HIGH LATERAL LEADS- CONSIDER ISCHEMIA BASELINE ARTIFACT- I, II, III, AVR, V4-V6 ABNORMAL ECG COMPARED TO ECG 05/10/2023 08:56:16 LEFT ANTERIOR FASCICULAR BLOCK NOW PRESENT Electronically Signed On 05-22-2023 7:41:42 CDT by Modesto Montgomery D.O.
[2023-05-22] MEDS: ASPIRIN 81 MG CHEWABLE TABLET 324 MG PO (07:41)
[2023-05-22] MEDS: METOPROLOL TARTRATE 25 MG TABLET PO ×2 (07:53→12:11)
[2023-05-22] MEDS: METOPROLOL TARTRATE INJ 5 MG/5 ML VIAL IV PUSH ×2 (07:53→12:08)
[2023-05-22 08:00] LABS: Basophils Absolute Auto 0.1 K/mm3 (0.0-0.1); Basophils Percent Auto 0.7 % (0.2-1.2); Eosinophils Absolute Auto 0.3 K/mm3 (0-0.3); Hematocrit 39.7 % (37.0-47.0); Hemoglobin 12.2 g/dL (12.0-15.0); Immature Granulocyte Absolute 0.05 K/mm3 (0.00-0.031); Immature Granulocyte Percent A 0.6 % (0-0.5); Lymphocytes Absolute Auto 1.16 K/mm3 (0.9-3.2); Lymphocytes Percent Auto 13.9 % (18.3-44.2); Mean Corpuscular HGB Conc 30.7 g/dl (32-36); Mean Corpuscular Hemoglobin 25.2 pg (26-34); Mean Platelet Volume 9.5 fl (7.4-10.4); Monocytes Absolute Auto 0.8 K/mm3 (0.1-0.6); Monocytes Percent Auto 9.1 % (2.6-8.5); Neutrophils Percent Auto 71.7 % (45.5-73.1); Platelet Count Result 389 k/mm3 (150-375); Red Blood Count 4.84 M/mm3 (4.2-5.4); Red Cell Distribution Width 14.2 % (11.5-14.5); White Blood Count 8.4 K/mm3 (4.5-10.0)
[2023-05-22 08:08] LABS: Alanine Aminotransferase 16 U/L (6-35); Alkaline Phosphatase 94 U/L (38-126); Anion Gap 6 mmol/L (4-12); Aspartate Amino Transferase 25 U/L (14-36); Bilirubin,Total 0.7 mg/dL (0.2-1.3); Blood Urea Nitrogen 15 mg/dL (7-17); Calcium 9.2 mg/dL (8.4-10.2); Carbon Dioxide 22 mmol/L (22-30); Chloride 111 mmol/L (98-107); Estimated CRCL calculation 39 ml/min; Estimated Glomerular Filt Rate 48; Glucose 169 mg/dL (65-110); Lipase 115 U/L (23-300); Potassium 3.8 mmol/L (3.4-5.0); Sodium 139 mmol/L (137-145)
[2023-05-22 08:30] LABS: Partial Thromboplastin Time 32.2 Seconds (22.3-36.8); Prothrombin Time 13.7 Seconds (11.1-14.7)
--- NOTE | 2023-05-22 10:34 | ECG_ITS ---
Measurements Intervals [place] Rate: 120 P: [place]: 0 QRS: -46 QRSD: 103 T: 149 QT: 299 QTc: 423 Interpretive Statements ATRIAL FIBRILLATION WITH RAPID VENTRICULAR RESPONSE LEFT ANTERIOR FASCICULAR BLOCK CANNOT RULE OUT SEPTAL INFARCT, AGE INDETERMINATE ST-T WAVE ABNORMALITY IN HIGH LATERAL LEADS- CONSIDER ISCHEMIA ABNORMAL ECG COMPARED TO ECG 05/22/2023 07:38:33 NO SIGNIFICANT CHANGES Electronically Signed On 05-22-2023 16:42:23 CDT by Modesto Montgomery D.O.
--- NOTE | 2023-05-22 10:42 | ED.ARRPALP ---
HPI - Arrhythmia/Palpitations General Chief Complaint: Arrhythmia/Palpitations Stated Complaint: elevated HR Time Seen by Provider: 05/22/23 07:41 History of Present Illness HPI narrative: Patient presenting here with palpitations, she woke up around 3 this morning and just felt like her heart was beating out of her chest and generally unwell. and she recently had catheterization with stents placed the was told that due to her low EF they were going to defer her 2nd stent. Related Data Home Medications Medication Instructions Recorded Confirmed nystatin 100,000 unit/gram topical 1 applic topical DAILY PRN Rash 11/18/21 05/08/23 cream nystatin 100,000 unit/gram topical 1 applic topical DAILY PRN Rash 11/18/21 05/08/23 powder (Nystop) ferrous sulfate 325 mg (65 mg 325 mg PO DAILY 05/08/23 05/08/23 iron) tablet,delayed release Allergies Allergy/AdvReac Type Severity Reaction Status Date / Time No Known Allergies Allergy Mild Verified 11/18/21 07:27 Review of Systems Review of Systems: CONST: No fever. HEENT: No sore throat C/V: palpitations RESP: short of breath GI: No abdominal pain : No dysuria. M/S: No joint pain. SKIN: No rash. NEURO: [No headache or focal numbness or weakness] PSYCH: [No depression] [facility] Past Medical History Medical History Atrial fibrillation Essential hypertension Hyperlipidemia MEE (iron deficiency anemia) ST elevation (STEMI) myocardial infarction 05/08/23 Family History Family History Mother Hypercholesteremia Father Hypercholesteremia COPD (chronic obstructive pulmonary disease) Other Diabetes mellitus Hypertension Social History Social History Smoking status: Never smoker Alcohol intake: never Drinks per week: 1 Substance use: never Substance use type: does not use Do You Feel Safe in your Home?: Yes Lack of Transportation: No Lack of Food: Never True Current Housing: I Have Housing Concerned About Future Housing: No Difficulty Paying Gas/Electric Bills: No Difficulty Paying for Meds: No Currently Unemployed: No Education: Grade School Difficulty w/ Childcare or Family Care: No Living arrangements: with family Spiritual care concerns: No Exam Narrative: EXAMINATION OF ORGAN SYSTEMS/BODY AREAS: Constitutional: Vital signs per nursing GENERAL: Appears slightly tired HEAD: Normal with no signs of head trauma. EYES: EOMI, conjunctiva normal ENT: Hearing grossly intact LUNGS: Nonlabored breathing. HEART: irregularly irregular, fast ABD: [Soft], [nontender to palpation] EXT: Normal range of motion SKIN: [No rashes or lesions.] NEURO: [Alert and oriented x 3. No gross focal sensory or strength deficits.] PSYCH: Normal affect Course Vital Signs Vital signs: Vital Signs Pulse Rate 140 H 05/22/23 07:46 Respiratory Rate 16 05/22/23 07:46 Blood Pressure 128/94 H 05/22/23 07:46 Pulse Oximetry 98 05/22/23 07:46 Temperature 97.8 F 05/22/23 15:36 Pulse Rate 65 05/22/23 15:36 Respiratory Rate 18 05/22/23 15:36 Blood Pressure 124/63 05/22/23 15:36 Pulse Oximetry 98 05/22/23 15:36 MDM - Arrhythmia/Palpitations MDM Narrative Medical decision making narrative: 1) Differential diagnosis: afib w/ rvr, ACS, lyte abnl, dehydration 2) Comorbidities: CHF with low EF, CAD 3) External notes reviewed: cardiology notes, inpt admission records 4) History sources independently obtained from: EMR, at bedside, 5) Discussion of management with: cardiology, hospitalist 6) Independent interpretation of: initial EKG done at 7:38 a.m.: Atrial fibrillation with RVR, rate 157, normal QRS, QTC 443, left axis. Difficult to appreciate ST changes given rapid rate. repeat EKG 1034, rate 120 AFib
[2023-05-22 11:02] LABS: Troponin I 0.168 ng/mL (0.000-0.034)
[2023-05-22] MEDS: HEPARIN SODIUM 5,000 UNITS/ML VIAL 5000 UNITS IV PUSH (12:09)
[2023-05-22] MEDS: HEPARIN SOD/D5W 100 UNITS/ML 25,000 UNITS/250 ML BAG 11 UNITS IV CONT (12:09)
--- NOTE | 2023-05-22 12:31 | ADMGEN ---
This patient, Maddie Pitts, was admitted to IMU Room 205-02. Patient/family oriented to hospital policies and general routines including ID bracelet, bed and alarms, visiting hours, pain management, procedures, bathroom and other care routines, personal items, smoking policy, room service/diet, and visiting hours. Information on how to activate the Rapid Response Team has been discussed. Patient/Family are encouraged to report perceived risks to care and to ask questions if they do not understand what they are told or what they should do.
--- NOTE | 2023-05-22 12:33 | PM.IMHP ---
H&P: HPI History of Present Illness Date/Time: 05/22/23 12:33 Chief Complaint: Palpitations Narrative: 77 y/o F presents here with palpitations with PMH of CAD, cardiac stent x1, Afib, HTN, SVT (only 1 occurrence, 2021), MEE, and HLD. Patient presented here for further evaluation of palpitations. Patient was woken up from her sleep with palpitations around 0300 this morning. Palpitations were intermittent. Describes the palpitations as if her heart was beating out of her chest. Associated general malaise. No associated shortness of breath, chest pain, nausea, vomiting, fatigue, syncope, pre-syncope sensation, or GERD like symptoms. Recently underwent a cardiac catheterization with 1 stent placed on 05/08/23 here at [facility]. Unable to place 2nd stent due to patient's low EF. If the patient remains stable post-stent placement, PCI of the circumflex disease will be done in a staged fashion following discharge from and recovery from this emergency. Also developed Afib during admission, had one brief episode years ago that was asymptomatic and short lived without reoccurrence, was not started on medications then. Now on XX and anticoagulation. Has follow-up appt on 05/31 or 06/01, with Adrianne DEE here. Upon arrival to the ED patient's HR was found to be in the 140's. Once rate was controlled, patient's sensation of palpitations resolved and general malaise resolved. No further complaints. Initial VS at presentation: 98? F, HR 140, RR 16, 128/94, and 98% on RA. ED workup showed: no leukocytosis, no anemia, creatinine 1.1, glucose 169, and initial troponin 0.110. EKG showed AFib with RVR with rate of 157. CXR showed?pulmonary interstitial and subpleural edema and small pleural effusions consistent with mild congestive change. Review of Systems Review of Systems: All systems reviewed & are unremarkable except as noted in HPI and below [facility] Past Medical History Medical History (Updated 05/22/23 @ 13:25 by Jhoan Kennedy MD) Atrial fibrillation Essential hypertension Hyperlipidemia MEE (iron deficiency anemia) ST elevation (STEMI) myocardial infarction 05/08/23 Surgical History Surgical History (Updated 05/22/23 @ 20:19 by Brisa E. Nenita, CORPORATE OPERATIONS COMPLIANCE MANAGER) History of cholecystectomy History of knee replacement procedure of left knee History of surgical amputation of finger of right hand Family History Family History Mother Hypercholesteremia Father Hypercholesteremia COPD (chronic obstructive pulmonary disease) Other Diabetes mellitus Hypertension Social History Social History Smoking status: Never smoker Alcohol intake: never Drinks per week: 1 Substance use: never Substance use type: does not use Do You Feel Safe in your Home?: Yes Lack of Transportation: No Lack of Food: Never True Current Housing: I Have Housing Concerned About Future Housing: No Difficulty Paying Gas/Electric Bills: No Difficulty Paying for Meds: No Currently Unemployed: No Education: Grade School Difficulty w/ Childcare or Family Care: No Living arrangements: with family Spiritual care concerns: No Meds Home Medications and Allergies Home Medications Medication Instructions Recorded Confirmed Type nystatin 100,000 unit/gram topical 1 applic topical DAILY PRN Rash 11/18/21 05/22/23 History cream ferrous sulfate 325 mg (65 mg 325 mg PO DAILY 05/08/23 05/22/23 History iron) tablet,delayed release aspirin 81 mg chewable tablet 81 mg PO DAILY@0800 #30 tabs 05/11/23 05/22/23 Rx (Children's Aspirin) losartan 25 mg tablet 25 mg PO DAILY 30 days #30 tabs 05/11/23 05/22/23 Rx metoprolol succinate 25 mg 25 mg PO QAM 30 days #30 tabs 05/11/23 05/22/23 Rx tablet,extended release 24 hr (Toprol XL) nitroglycerin 0.4 mg sublingual 0.4 mg sublingual Q5MIN PRN Chest 05/11/23
--- NOTE | 2023-05-22 13:21 | PM.CNCAR ---
Assessment and Plan Assessment and plan (1) Atrial fibrillation with rapid ventricular response: Code(s): I48.91 - Unspecified atrial fibrillation Status: Acute Assessment and Plan: Patient presents with symptomatic AFib with RVR with previous episode of transient self terminating AFib around time her STEMI 05/08/2023. Continue systemic anticoagulation currently on heparin infusion transition to oral systemic anticoagulation with Xarelto 20 mg at bedtime beginning tomorrow. Up titrate beta-german therapy for heart rate control as tolerated. Given dual antiplatelet therapy this will need to be continued in conjunction with systemic anticoagulation for the next 2 weeks then may discontinue aspirin continuation of ticagrelor in systemic anticoagulation he is with close observation monitor for bleeding given increased his physical bleeding risk. CHADS2 Vasc score 6. Continue classroom monitor heart rate control. -given Toprol XL 25 mg p.o. x1 now. Increase Toprol XL to 50 mg p.o. daily beginning tomorrow morning. -ideally would recommend Eliquis 5 mg twice daily or Xarelto 20 mg in the evening, however, they expressed concern with regards to prohibitive cost and wished to initiate warfarin. Will start warfarin 5 mg this evening. -discontinue heparin infusion. SCDs for DVT prophylaxis. -discussed at great length Valsalva folic stroke risk reduction and bleeding risk particularly with dual antiplatelet therapy in conjunction with systemic anticoagulation. Patient already plans to transition from Brilinta to clopidogrel in 2 weeks due to excessive cost with Brilinta. She has follow-up in the office May 31. -observe her overnight on telemetry and if she remains sinus sinus rhythm tolerating medications she may discharge home to follow closely as an outpatient. Ambulate with extreme caution to avoid risk for falls and injuries. (2) Cardiomyopathy: Code(s): I42.9 - Cardiomyopathy, unspecified Status: Acute Assessment and Plan: History of severe LV systolic dysfunction EF 25-30% in setting of anterior STEMI. She has been maintained on losartan 25 mg daily, Toprol XL 25 mg daily will increase to 50 mg daily. She is not currently in decompensated heart failure. (3) CAD (coronary artery disease): Code(s): I25.10 - Atherosclerotic heart disease of [place] coronary artery without angina pectoris Status: Acute Assessment and Plan: Continue aspirin 81 mg daily and ticagrelor 90 mg twice daily without interruption given recent ST-elevation PR status post drug-eluting stent to proximal LAD. Continue rosuvastatin 20 mg at bedtime, Toprol XL 25 mg daily, losartan 25 mg daily. (4) Essential hypertension: Code(s): I10 - Essential (primary) hypertension Status: Acute Assessment and Plan: BP stable. Continue losartan 25 mg daily. Toprol XL will be continue with dose adjustment based on heart rate control with recommendation to follow. (5) Mixed hyperlipidemia: Code(s): E78.2 - Mixed hyperlipidemia Status: Acute Assessment and Plan: Continue rosuvastatin 20 mg at bedtime with goal LDL less than 70. History of Present Illness History of Present Illness Consult date/time: Date of service: 05/22/23 13:21 Requesting physician: Brisa Gutierres APRN Consult reason: atrial fibrillation Reason For Visit: Afib w RVR Narrative: Patient is a pleasant 77-year-old female with recent anterior ST-elevation PR status post 2.75 x 18 mm drug-eluting stent proximal LAD on 05/08/2023, history of severe LV systolic dysfunction ischemic cardiomyopathy EF 25-30% with a history of atrial fibrillation in setting of STEMI 2 weeks ago presents back to the emergency department complains of palpitations which woke her up around 3:00 a.m. if her heart was beating out of her chest and not feeling well. In the ER she received IV metoprolol and oral metoprolol with improvement in her heart rate
[2023-05-22 13:27] LABS: Basophils Absolute Auto 0.1 K/mm3 (0.0-0.1); Basophils Percent Auto 1.1 % (0.2-1.2); Eosinophils Absolute Auto 0.2 K/mm3 (0-0.3); Eosinophils Percent Auto 3.5 % (0-4.4); Hematocrit 39.3 % (37.0-47.0); Hemoglobin 11.9 g/dL (12.0-15.0); Immature Granulocyte Absolute 0.03 K/mm3 (0.00-0.031); Immature Granulocyte Percent A 0.5 % (0-0.5); Lymphocytes Absolute Auto 1.31 K/mm3 (0.9-3.2); Lymphocytes Percent Auto 20.9 % (18.3-44.2); Mean Corpuscular HGB Conc 30.3 g/dl (32-36); Mean Corpuscular Volume 82.6 fl (80-100); Mean Platelet Volume 9.3 fl (7.4-10.4); Monocytes Absolute Auto 0.6 K/mm3 (0.1-0.6); Monocytes Percent Auto 10.2 % (2.6-8.5); Neutrophils Percent Auto 63.8 % (45.5-73.1); Platelet Count Result 395 k/mm3 (150-375); Red Blood Count 4.76 M/mm3 (4.2-5.4); Red Cell Distribution Width 14.3 % (11.5-14.5); White Blood Count 6.3 K/mm3 (4.5-10.0)
[2023-05-22 13:39] LABS: INR 1.1; Prothrombin Time 14.6 Seconds (11.1-14.7)
[2023-05-22 13:40] LABS: Partial Thromboplastin Time 121.7 Seconds (22.3-36.8)
[2023-05-22 13:53] LABS: Troponin I 0.288 ng/mL (0.000-0.034)
[2023-05-22] MEDS: METOPROLOL SUCCINATE EXT REL 25 MG TABCR PO (16:24)
[2023-05-22] MEDS: WARFARIN (*PBKC) 5 MG TABLET PO (16:24)
[2023-05-22] MEDS: TICAGRELOR 90 MG TABLET PO (21:17)
[2023-05-23] VITALS (9 sets, daily range): BP systolic 111–130; BP diastolic 59–66; PULSE 65–82; RESP 16–18; TEMP 36.3–37; O2SAT 96–97
[2023-05-23 04:52] LABS: Basophils Absolute Auto 0.1 K/mm3 (0.0-0.1); Basophils Percent Auto 1.2 % (0.2-1.2); Eosinophils Absolute Auto 0.3 K/mm3 (0-0.3); Eosinophils Percent Auto 5.5 % (0-4.4); Hematocrit 34.4 % (37.0-47.0); Hemoglobin 10.6 g/dL (12.0-15.0); Immature Granulocyte Absolute 0.03 K/mm3 (0.00-0.031); Immature Granulocyte Percent A 0.5 % (0-0.5); Lymphocytes Percent Auto 21.6 % (18.3-44.2); Mean Corpuscular HGB Conc 30.8 g/dl (32-36); Mean Corpuscular Hemoglobin 25.5 pg (26-34); Mean Corpuscular Volume 82.7 fl (80-100); Mean Platelet Volume 9.7 fl (7.4-10.4); Monocytes Absolute Auto 0.6 K/mm3 (0.1-0.6); Monocytes Percent Auto 10.6 % (2.6-8.5); Neutrophils Absolute Auto 3.6 K/mm3 (1.3-6.7); Neutrophils Percent Auto 60.6 % (45.5-73.1); Platelet Count Result 335 k/mm3 (150-375); Red Blood Count 4.16 M/mm3 (4.2-5.4); Red Cell Distribution Width 14.2 % (11.5-14.5)
[2023-05-23 05:01] LABS: Prothrombin Time 13.9 Seconds (11.1-14.7)
[2023-05-23 05:10] LABS: Anion Gap 6 mmol/L (4-12); Blood Urea Nitrogen 21 mg/dL (7-17); Calcium 8.7 mg/dL (8.4-10.2); Carbon Dioxide 21 mmol/L (22-30); Chloride 112 mmol/L (98-107); Estimated CRCL calculation 43 ml/min; Estimated Glomerular Filt Rate 54; Glucose 125 mg/dL (65-110); Potassium 3.7 mmol/L (3.4-5.0); Sodium 139 mmol/L (137-145)
[2023-05-23] MEDS: ROSUVASTATIN 10 MG TABLET 20 MG PO (08:46)
[2023-05-23] MEDS: FERROUS SULFATE 325 MG TABLET DR PO (08:46)
[2023-05-23] MEDS: PANTOPRAZOLE 40 MG TABLET PO (08:46)
[2023-05-23] MEDS: TICAGRELOR 90 MG TABLET PO (08:46)
[2023-05-23] MEDS: ASPIRIN 81 MG CHEWABLE TABLET PO (08:47)
[2023-05-23] MEDS: LOSARTAN POTASSIUM 25 MG TABLET PO (08:47)
[2023-05-23] MEDS: METOPROLOL SUCCINATE EXT REL 50 MG TABCR PO (08:47)
--- NOTE | 2023-05-23 09:17 | PM.PNCARD ---
Progress Note: A&P Assessment and Plan (1) Atrial fibrillation with rapid ventricular response: Code(s): I48.91 - Unspecified atrial fibrillation Status: Acute Assessment and Plan: Patient presents with symptomatic AFib with RVR with previous episode of transient self terminating AFib around time her STEMI 05/08/2023. Continue systemic anticoagulation currently on heparin infusion transition to oral systemic anticoagulation with Xarelto 20 mg at bedtime beginning tomorrow. Up titrate beta-german therapy for heart rate control as tolerated. Given dual antiplatelet therapy this will need to be continued in conjunction with systemic anticoagulation for the next 2 weeks then may discontinue aspirin continuation of ticagrelor in systemic anticoagulation he is with close observation monitor for bleeding given increased his physical bleeding risk. CHADS2 Vasc score 6. Continue cardiac monitor technician heart rate control. No recurrent atrial fibrillation on telemetry. Tolerating medications well. Continue Toprol XL 50 mg daily. Warfarin 5 mg in the evening started. Check INR on Wednesday. Goal target INR 2.5. Patient has been at bedside they verbalized understanding and are eager to be discharged. Follow up with Dr. Cantu as scheduled early May. From a cardiac perspective, patient stable to be discharged home per hospitalist service. She has been ambulating well without difficulty in the halls. (2) Cardiomyopathy: Code(s): I42.9 - Cardiomyopathy, unspecified Status: Acute Assessment and Plan: History of severe LV systolic dysfunction EF 25-30% in setting of anterior STEMI. She has been maintained on losartan 25 mg daily, Toprol XL 25 mg daily will increase to 50 mg daily. She is not currently in decompensated heart failure. (3) CAD (coronary artery disease): Code(s): I25.10 - Atherosclerotic heart disease of [place] coronary artery without angina pectoris Status: Acute Assessment and Plan: Continue aspirin 81 mg daily and ticagrelor 90 mg twice daily without interruption given recent ST-elevation MD status post drug-eluting stent to proximal LAD. Continue rosuvastatin 20 mg at bedtime, Toprol XL 25 mg daily, losartan 25 mg daily. (4) Essential hypertension: Code(s): I10 - Essential (primary) hypertension Status: Acute Assessment and Plan: BP stable. Continue losartan 25 mg daily. Toprol XL will be continue with dose adjustment based on heart rate control with recommendation to follow. (5) Mixed hyperlipidemia: Code(s): E78.2 - Mixed hyperlipidemia Status: Acute Assessment and Plan: Continue rosuvastatin 20 mg at bedtime with goal LDL less than 70. Subjective Date/time seen: Date of service: 05/23/23 09:17 Interval history: Follow-up for paroxysmal atrial fibrillation with RVR No new issues overnight. Patient denies chest pain, shortness of breath, palpitation or dizziness. Tolerating medications. No recurrent atrial fibrillation with RVR on telemetry. Ambulating without difficulty. Review of Systems Review of Systems: Remainder of the review of systems is otherwise negative aside from that noted in the HPI. All systems reviewed & are unremarkable except as noted in HPI and below Constitutional: Constitutional: Reports as per HPI and Reports no additional constitutional complaints Eyes: Eyes: Reports as per HPI and Reports no additional eye complaints ENT: Reports system reviewed and no additional complaints, except as documented and Reports as per HPI Cardiovascular: Cardiovascular: Reports as per HPI and Reports no additional cardiovascular complaints Respiratory: Respiratory: Reports as per HPI and Reports no additional respiratory complaints Gastrointestinal: Gastrointestinal: Reports as per HPI and Reports no additional gastrointestinal complaints Genitourinary: Genitourinary: Reports as per HPI Musculoskeletal: Musculo
--- NOTE | 2023-05-23 14:31 | PM.DS ---
DS: Admitting Diagnosis Discharge Date 05/23/23 Admitting Diagnosis Palpitations DS: Discharge Diagnosis Discharge Diagnosis (1) Atrial fibrillation with rapid ventricular response: Code(s): I48.91 - Unspecified atrial fibrillation Status: Acute (2) Cardiomyopathy: Code(s): I42.9 - Cardiomyopathy, unspecified Status: Acute (3) Essential hypertension: Code(s): I10 - Essential (primary) hypertension Status: Acute (4) Mixed hyperlipidemia: Code(s): E78.2 - Mixed hyperlipidemia Status: Acute (5) CAD (coronary artery disease): Code(s): I25.10 - Atherosclerotic heart disease of [place] coronary artery without angina pectoris Status: Acute (6) Elevated troponin: Code(s): R79.89 - Other specified abnormal findings of blood chemistry Status: Acute DS: Summary Hospital Course Reason for hospitalization: 77yo female with CAD, recent STEMI s/p cardiac stent x1, AFib, HTN, SVT (only 1 occurrence, 2021), MEE, and HLD here with palpitations. Please see H&P for details. Hospital Course: Heart rate was 140 on admission. ?Initial EKG showing AFib with RVR with rate of 157, left anterior fascicular block, cannot rule out septal infarct age indeterminate, ST-T-wave abnormality in high lateral leads consider ischemia.?Troponin elevated? 0.110 -> 0.168 -> 0.288. Patient received metoprolol oral and IV and converted to normal sinus rhythm. Cardiology consulted and appreciate their input. Metoprolol advanced. Heparin drip started and switched to warfarin. CXR showing pulmonary interstitial and subpleural edema and small pleural effusions consistent with mild congestive change. Risks and benefits of warfarin discussed at length with patient and and all questions answered. She overall did well and was able to be discharged home on 05/23/23 Status at Discharge Cognitive/behavioral status at discharge: stable Time Spent with Patient Time attestation: Total time spent providing and/or coordinating discharge services: 35 minutes Time spent: Greater than 30 minutes Exam Narrative: AF Gen - NARD Chest - CTA bilaterally, nml RR CV - RRR S1/S2. Tele showing NSR Abd - Soft, NT/ND, Positive BS Ext - trace pedal edema Psych - Nml mood and affect Skin - Warm and dry DS: Data Data Completed and Pending Labs on day of discharge: Labs from last 24 hours 05/23/23 04:33 WBC 6.0 RBC 4.16 L Hgb 10.6 L Hct 34.4 L MCV 82.7 MCH 25.5 L MCHC 30.8 L RDW 14.2 Plt Count 335 MPV 9.7 Immature Gran % (Auto) 0.5 Neut % (Auto) 60.6 Lymph % (Auto) 21.6 [place] % (Auto) 10.6 H Eos % (Auto) 5.5 H Baso % (Auto) 1.2 Lymph # (Auto) 1.30 [place] # (Auto) 0.6 Eos # (Auto) 0.3 Baso # (Auto) 0.1 Abs Immat Gran (auto) 0.03 Absolute Neuts (auto) 3.6 Absolute Nucleated RBC 0.000 Nucleated RBC % 0.0 PT 13.9 INR 1.0 Sodium 139 Potassium 3.7 Chloride 112 H Carbon Dioxide 21 L Anion Gap 6 L BUN 21 H Creatinine 1.00 Estim Creat Clear Calc 43 Estimated GFR 54 L Glucose 125 H Calcium 8.7 Discharge Plan Discharge Attending physician on discharge: Hamzah Santo Consulting providers: Jhoan Kennedy Discharging Clinician: Hamzah Santo Anticipated Discharge Date/Time: 05/23/23 14:40 Patient Disposition: Home, Self-Care Activity: as tolerated Diet: heart healthy Discharge Instructions: Please avoid large gathering, wear face coverings in public and practice social distance. Take precautions to avoid falls. Rise slowly from a lying or sitting position. Pause before standing or walking. Check daily morning weights after voiding. Call your doctor if you gain more than 3 lb in 2 days or 5 lb in 1 week. Contact your doctor or call 911 and come to the Emergency Room if you have any type of trauma, lightheadedness with standing or other worrisome symptoms. Avoid NSAIDs (ibuprofen, naproxen, Emily
== END 2023-05-23 14:41 | disposition home or self-care (01) ==
LOC: ANHED 08:23 → ANHIMU 10:48
PROVIDERS: Internal Medicine Cardiovascular Disease; Student in an Organized Health Care Education/Training Program; Admitting Provider Internal Medicine; Emergency Provider Emergency Medicine; Visit Provider Internal Medicine
DX: I48.91 Unspecified atrial fibrillation (principal); I42.9 Cardiomyopathy, unspecified; I10 Essential (primary) hypertension; I25.10 Atherosclerotic heart disease of native coronary artery without angina pectoris; Z95.5 Presence of coronary angioplasty implant and graft; E78.2 Mixed hyperlipidemia; R79.89 Other specified abnormal findings of blood chemistry; I44.4 Left anterior fascicular block; I35.8 Other nonrheumatic aortic valve disorders; I25.2 Old myocardial infarction; D50.9 Iron deficiency anemia, unspecified; Z96.652 Presence of left artificial knee joint; Z79.82 Long term (current) use of aspirin; Z79.899 Other long term (current) drug therapy
CPT/HCPCS: 36415; 71046; 80048; 80053; 83690; 84484; 85025; 85610; 85730; 93005; 96365; 96375; 96376; 99285; A9270; G0378; J1644

== ENCOUNTER 2023-05-31 08:47 | Observation (INO) | payer MEDICARE, SELFPAY ==
[2023-05-31] VITALS (24 sets, daily range): BP systolic 105–138; BP diastolic 62–96; PULSE 62–145; RESP 12–22; TEMP 36.1–37.3; O2SAT 95–99
--- NOTE | ~2023-05-31 | XR_ITS ---
EXAMINATION: XR chest 1V portable DATE: 05/31/2023 09:27 INDICATION: Aching chest pain. TECHNIQUE: A single frontal view of the chest was obtained. COMPARISON: Chest 2 views 05/22/2023 FINDINGS: There is mild atelectasis in the lower lung zones. No pleural effusion or pneumothorax. The heart size is normal. Surgical clips in the right upper quadrant are likely from cholecystectomy. IMPRESSION: 1. Mild atelectasis in the lower lung zones. Reviewed, dictated and finalized at location A.
[2023-05-31] MEDS: ASPIRIN 81 MG CHEWABLE TABLET 324 MG PO (08:53)
--- NOTE | 2023-05-31 08:55 | ECG_ITS ---
Measurements Intervals [place] Rate: 142 P: * MS: * QRS: -50 QRSD: 111 T: 149 QT: 289 AVG RR: 422 QTc: 371 QTCB: 444 QTCF: 385 Interpretive Statements ATRIAL FIBRILLATION WITH RAPID VENTRICULAR RESPONSE LEFT ANTERIOR FASCICULAR BLOCK [QRS AXIS <=-45, QR IN I, RS IN II] ANTERIOR MYOCARDIAL INFARCTION, RECENT [40+ ms Q WAVE AND/OR ST/T ABNORMALITY IN V3,V4] ABNORMAL ECG SEE SCANNED COPY FOR SIGNATURE MTDD
--- NOTE | 2023-05-31 08:55 | ECG_ITS ---
Measurements Intervals [place] Rate: 142 P: * DC: * QRS: -50 QRSD: 111 T: 149 QT: 289 AVG RR 422 QTc: 371 QTcB 444 QTcF 385 Interpretive Statements ATRIAL FIBRILLATION WITH RAPID VENTRICULAR RESPONSE LEFT ANTERIOR FASCICULAR BLOCK [QRS AXIS <= -45, QR IN I, RS IN II] ANTERIOR MYOCARDIAL INFARCTION, OLD [40+ ms Q WAVEAND/OR ST/T ABNORMALITY IN V3/V4] SEE SCANNED COPY FOR SIGNATURE MTDD
[2023-05-31] MEDS: METOPROLOL TARTRATE INJ 5 MG/5 ML VIAL IV PUSH ×2 (09:04→09:12)
--- NOTE | 2023-05-31 09:07 | ED.CHESTPAIN ---
HPI - Chest Pain General Chief Complaint: Chest Pain Stated Complaint: chest pain Time Seen by Provider: 05/31/23 08:52 History of Present Illness HPI narrative: 77-year-old female with coronary artery disease and recent AFib presented to the emergency department for evaluation of rapid heart rate an onset of chest pain this morning. Patient reports her heart rate last night was running in the 180s and patient was having some chest pressure and pain. Upon arrival emergency department patient was in the 140s and patient was complaining of substernal chest pain. Patient's EKG does show some ST elevation and no old EKGs were available due to computer issues. Cardiology was consulted and stated that patient did have a recent catheterization approximately 3 weeks ago and patient does still have residual disease, patient was anticipated to have additional outpatient PCI. 1 week ago patient had onset AFib and patient was started metoprolol. Related Data Home Medications Medication Instructions Recorded Confirmed nystatin 100,000 unit/gram topical 1 applic topical DAILY PRN Rash 11/18/21 05/31/23 cream ferrous sulfate 325 mg (65 mg 325 mg PO DAILY 05/08/23 05/31/23 iron) tablet,delayed release pantoprazole 40 mg tablet,delayed 40 mg PO EVERY OTHER DAY 05/31/23 05/31/23 release Allergies Allergy/AdvReac Type Severity Reaction Status Date / Time No Known Allergies Allergy Mild Verified 05/31/23 11:33 Review of Systems Review of Systems: All systems reviewed & are unremarkable except as noted in HPI and below [facility] Past Medical History Medical History (Updated 05/31/23 @ 14:45 by Berna Ortega PA-C) Chronic kidney disease Coronary artery disease Anterior wall IN 05/08/2023 status post drug-eluting stent to proximal LAD. Essential hypertension Hyperlipidemia Iron deficiency anemia Ischemic cardiomyopathy EF 25 to 30% in April 2023. Mixed hyperlipidemia Paroxysmal atrial fibrillation ST elevation myocardial infarction (STEMI) of anterior wall (05/08/23) Surgical History Surgical History (Updated 05/31/23 @ 14:45 by Berna Ortega PA-C) History of cardiac catheterization History of cholecystectomy History of coronary artery stent placement History of knee replacement procedure of left knee History of surgical amputation of finger of right hand Family History Family History Mother Hypercholesteremia Father Hypercholesteremia COPD (chronic obstructive pulmonary disease) Other Diabetes mellitus Hypertension Social History Social History (Updated 05/31/23 @ 14:44 by Berna Ortega PA-C) Social History: Surrogate medical decision maker: Sukhwinder Pitts, spouse. Code status: Full code. Smoking status: Never smoker Alcohol intake: never Drinks per week: 1 Substance use: never Substance use type: does not use Do You Feel Safe in your Home?: Yes Lack of Transportation: No Lack of Food: Never True Current Housing: I Have Housing Concerned About Future Housing: No Difficulty Paying Gas/Electric Bills: No Difficulty Paying for Meds: No Currently Unemployed: No Education: Grade School Difficulty w/ Childcare or Family Care: No Living arrangements: with family Spiritual care concerns: No Exam Narrative: APPEARANCE: Well appearing, no pain, no distress, well-nourished. HEAD: normocephalic, atraumatic. EYES: PERRLA/EOMI, conjunctivae clear. NOSE: Normal no drainage NECK: Supple. No adenopathy, no masses. RESPIRATORY: Airway patent, respirations nonlabored. Clear to auscultation bilaterally, no rales, rhonchi, wheezing. CARDIOVASCULAR: AFib with RVR ABDOMINAL: Soft, nontender, nondistended, normal bowel sounds MUSCULOSKELETAL: Moves all extremities. Strength/ROM intact, No edema, No calf tenderness. NEURO: Alert. Cranial nerves II through XII intact. Grossly intact SKIN: Warm, dry. Normal
[2023-05-31 09:08] LABS: Basophils Absolute Auto 0.1 K/mm3 (0.0-0.1); Basophils Percent Auto 0.8 % (0.2-1.2); Eosinophils Absolute Auto 0.3 K/mm3 (0-0.3); Eosinophils Percent Auto 3.4 % (0-4.4); Hematocrit 41.9 % (37.0-47.0); Hemoglobin 12.9 g/dL (12.0-15.0); Immature Granulocyte Absolute 0.04 K/mm3 (0.00-0.031); Immature Granulocyte Percent A 0.5 % (0-0.5); Lymphocytes Absolute Auto 1.29 K/mm3 (0.9-3.2); Lymphocytes Percent Auto 16.8 % (18.3-44.2); Mean Corpuscular HGB Conc 30.8 g/dl (32-36); Mean Corpuscular Hemoglobin 25.1 pg (26-34); Mean Corpuscular Volume 81.7 fl (80-100); Mean Platelet Volume 9.4 fl (7.4-10.4); Monocytes Absolute Auto 0.7 K/mm3 (0.1-0.6); Monocytes Percent Auto 9.6 % (2.6-8.5); Neutrophils Absolute Auto 5.3 K/mm3 (1.3-6.7); Neutrophils Percent Auto 68.9 % (45.5-73.1); Platelet Count Result 368 k/mm3 (150-375); Red Blood Count 5.13 M/mm3 (4.2-5.4); White Blood Count 7.7 K/mm3 (4.5-10.0)
[2023-05-31 09:23] LABS: INR 1.9; Prothrombin Time 22.7 Seconds (11.1-14.7)
[2023-05-31 09:24] LABS: Alanine Aminotransferase 15 U/L (6-35); Albumin Level 4.4 g/dL (3.5-5.1); Alkaline Phosphatase 83 U/L (38-126); Anion Gap 9 mmol/L (4-12); Aspartate Amino Transferase 34 U/L (14-36); Bilirubin,Total 0.8 mg/dL (0.2-1.3); Blood Urea Nitrogen 17 mg/dL (7-17); Calcium 9.6 mg/dL (8.4-10.2); Carbon Dioxide 20 mmol/L (22-30); Chloride 112 mmol/L (98-107); Estimated CRCL calculation 38 ml/min; Estimated Glomerular Filt Rate 48; Glucose 160 mg/dL (65-110); Lipase 147 U/L (23-300); Partial Thromboplastin Time 42.6 Seconds (22.3-36.8); Potassium 3.9 mmol/L (3.4-5.0); Sodium 141 mmol/L (137-145)
[2023-05-31] MEDS: AMIODARONE 150 MG/D5W 100 ML 150 MG/100 ML BAG 600 MG IV CONT (09:37)
[2023-05-31 09:39] LABS: Troponin I 0.039 ng/mL (0.000-0.034)
[2023-05-31] MEDS: AMIODARONE 360 MG/D5W 200 ML 360 MG/200 ML BAG 33.33 MG IV CONT (09:52)
--- NOTE | 2023-05-31 11:11 | PC.NURSE ---
Amiodarone titrated to 0.5 mg/min, 16.67 mls/hr per [facility] EDP
--- NOTE | 2023-05-31 11:19 | PM.CNCAR ---
Assessment and Plan Assessment and plan (1) Atrial fibrillation with rapid ventricular response: Code(s): I48.91 - Unspecified atrial fibrillation Status: Acute Assessment and Plan: Recurrent symptomatic atrial fibrillation with RVR. She has now converted to sinus rhythm on amiodarone. Will continue IV amiodarone for today and shift to p.o. amiodarone tomorrow Continue systemic anticoagulation with warfarin. INR tomorrow Continue telemetry Anticipate d/c tomorrow if rhythm remains stable. (2) CAD (coronary artery disease): Code(s): I25.10 - Atherosclerotic heart disease of [place] coronary artery without angina pectoris Status: Acute Assessment and Plan: CAD with recent STEMI s/p PCI to the LAD. She also has disease in the LCX that will require intervention and plan had been to schedule PCI after she was seen in the office (appointment was set for this Wednesday). At this point will go ahead and schedule staged PCI to take place at [facility] within the next few weeks ASA can be discontinued in one week as she is now on warfarin for AF in addition to Brilinta She was able to get 1 month of Brilinta free but is unable to afford future fills. Script has already been called in to her pharmacy. (3) Cardiomyopathy: Code(s): I42.9 - Cardiomyopathy, unspecified Status: Acute Assessment and Plan: EF 25 - 30%. She is being maintained on losartan and Toprol XL. Currently she is not in decompensated heart failure. (4) Essential hypertension: Code(s): I10 - Essential (primary) hypertension Status: Acute Assessment and Plan: BP at goal. (5) Mixed hyperlipidemia: Code(s): E78.2 - Mixed hyperlipidemia Status: Acute Assessment and Plan: Continue high intensity statin (6) Elevated troponin: Code(s): R79.89 - Other specified abnormal findings of blood chemistry Status: Acute Assessment and Plan: She has known underlying CAD, troponin elevated in the setting of tachycardia. She denies chest pain. EKG consistent with old anterior infarct with no evidence of acute GA. EKG personally reviewed by myself and Dr. Cantu. History of Present Illness History of Present Illness Consult date/time: 05/31/23 11:19 Reason For Visit: Afib with RVR amd Elevated Troponin Narrative: Maddie Pitts is a 77 year old female with recent anterior ST-elevation GA status post 2.75 x 18 mm drug-eluting stent proximal LAD on 05/08/2023, history of severe LV systolic dysfunction ischemic cardiomyopathy EF 25-30%, atrial fibrillation in setting of STEMI?last month with AF recurrence a couple of weeks later. She presents to the hospital once again with a chief complaint of shortness of breath that began this morning around 0300. She states her Fitbit notified her that her heart rate was elevated. Therefore, she proceeded to the emergency department. Upon arrival to the emergency department she was found to be in atrial fibrillation with rapid ventricular response, rate in the 150's. She was initially treated with IV metoprolol which did not improve her heart rate. She was subsequently placed on IV amiodarone and has converted to sinus rhythm at this point. She denies having chest pain at any point. She also denies palpitations. At the time of my visit with her she is resting comfortably in bed and has no complaints of any kind. Review of Systems Review of Systems: All systems reviewed & are unremarkable except as noted in HPI and below PMFSH Past Medical History Medical History Atrial fibrillation Essential hypertension Hyperlipidemia MEE (iron deficiency anemia) ST elevation (STEMI) myocardial infarction 05/08/23 Surgical History Surgical History History of cholecystectomy History of knee replacement procedure of left knee History
--- NOTE | 2023-05-31 12:06 | ECG_ITS ---
Measurements Intervals [place] Rate: 64 P: 42 [place]: 154 QRS: -42 QRSD: 113 T: 185 QT: 487 QTc: 496 Interpretive Statements SINUS RHYTHM WITH SINUS ARRHYTHMIA LEFT AXIS DEVIATION [QRS AXIS< -30] ANTERIOR MYOCARDIAL INFARCTION, RECENT SEE SCANNED COPY FOR SIGNATURE MTDD
[2023-05-31 12:33] LABS: Troponin I 0.042 ng/mL (0.000-0.034)
--- NOTE | 2023-05-31 12:43 | ADMGEN ---
This patient, Maddie Pitts, was admitted to IMU Room 210-01. Patient/family oriented to hospital policies and general routines including ID bracelet, bed and alarms, visiting hours, pain management, procedures, bathroom and other care routines, personal items, smoking policy, room service/diet, and visiting hours. Information on how to activate the Rapid Response Team has been discussed. Patient/Family are encouraged to report perceived risks to care and to ask questions if they do not understand what they are told or what they should do.
--- NOTE | 2023-05-31 13:43 | PM.IMHP ---
H&P: HPI History of Present Illness Date/Time: 05/31/23 13:00 Chief Complaint: Chest pain. Narrative: This is a 77-year-old female with anterior ST-elevation myocardial infarction status post drug-eluting stent to the proximal LAD on 05/08/2023, ischemic cardiomyopathy with an EF of 25 to 30%, paroxysmal atrial fibrillation, and hypertension who presented to the emergency department for evaluation of chest pain. The patient provides the following history. Fine when she went to bed last night and was awakened from sleep at around 03:00 with shortness of breath and mild chest discomfort. Her FitBit showed that her heart rate was in the 140s to 150s which led her to the emergency department. On arrival she was in atrial fibrillation with rapid ventricular response with some ST elevation (EKG not available for review given computer issues). Initial troponin was slightly elevated at 0.039. Cardiology was consulted and did not feel that this was an acute STEMI given her recent history. She received IV metoprolol without improvement and she has since been started on amiodarone drip. She is not having any chest pain at this time and denies current shortness of breath. She also denies syncope, near syncope, sweats, nausea, vomiting, edema, and calf pain. Review of Systems Review of Systems: 12 systems were reviewed and are negative except for as per HPI. [facility] Past Medical History Medical History (Updated 05/31/23 @ 14:45 by Berna Ortega PA-C) Chronic kidney disease Coronary artery disease Anterior wall GA 05/08/2023 status post drug-eluting stent to proximal LAD. Essential hypertension Hyperlipidemia Iron deficiency anemia Ischemic cardiomyopathy EF 25 to 30% in April 2023. Mixed hyperlipidemia Paroxysmal atrial fibrillation ST elevation myocardial infarction (STEMI) of anterior wall (05/08/23) Surgical History Surgical History (Updated 05/31/23 @ 14:45 by Berna Ortega PA-C) History of cardiac catheterization History of cholecystectomy History of coronary artery stent placement History of knee replacement procedure of left knee History of surgical amputation of finger of right hand Family History Family History Mother Hypercholesteremia Father Hypercholesteremia COPD (chronic obstructive pulmonary disease) Other Diabetes mellitus Hypertension Social History Social History (Updated 05/31/23 @ 14:44 by Berna Ortega PA-C) Social History: Surrogate medical decision maker: Sukhwinder Pitts, spouse. Code status: Full code. Smoking status: Never smoker Alcohol intake: never Drinks per week: 1 Substance use: never Substance use type: does not use Do You Feel Safe in your Home?: Yes Lack of Transportation: No Lack of Food: Never True Current Housing: I Have Housing Concerned About Future Housing: No Difficulty Paying Gas/Electric Bills: No Difficulty Paying for Meds: No Currently Unemployed: No Education: Grade School Difficulty w/ Childcare or Family Care: No Living arrangements: with family Spiritual care concerns: No Meds Home Medications and Allergies Home Medications Medication Instructions Recorded Confirmed Type nystatin 100,000 unit/gram topical 1 applic topical DAILY PRN Rash 11/18/21 05/31/23 History cream ferrous sulfate 325 mg (65 mg 325 mg PO DAILY 05/08/23 05/31/23 History iron) tablet,delayed release aspirin 81 mg chewable tablet 81 mg PO DAILY@0800 #30 tabs 05/11/23 05/31/23 Rx (Children's Aspirin) losartan 25 mg tablet 25 mg PO DAILY 30 days #30 tabs 05/11/23 05/31/23 Rx nitroglycerin 0.4 mg sublingual 0.4 mg sublingual Q5MIN PRN Chest 05/11/23 05/31/23 Rx tablet (Nitrostat) Pain 30 days #10 tabs rosuvastatin 10 mg tablet (Crestor) 20 mg PO DAILY 30 days #60 tabs 05/11/23 05/31/23 Rx ticagrelor 90 mg tablet (Brilinta) 90 mg PO Q12HR #60 tabs 05/11/23 05/31/23 Rx met
--- NOTE | 2023-05-31 14:53 | ECG_ITS ---
Measurements Intervals [place] Rate: 66 P: 42 SD: 156 QRS: -48 QRSD: 105 T: 178 QT: 472 QTc: 485 Interpretive Statements SINUS RHYTHM LEFT ANTERIOR FASCICULAR BLOCK [QRS AXIS <=-45, QR IN I, RS IN II] ANTERIOR MYOCARDIAL INFARCTION, RECENT [40+ ms Q WAVE AND/OR ST/T ABNORMALITY IN V3,V4] SEE SCANNED COPY FOR SIGNATURE MTDD
[2023-05-31 15:33] LABS: Troponin I 0.033 ng/mL (0.000-0.034)
[2023-05-31] MEDS: WARFARIN (*PBKC) 5 MG TABLET PO (17:19)
[2023-05-31] MEDS: AMIODARONE 360 MG/D5W 200 ML 360 MG/200 ML BAG 16.67 MG IV CONT (20:25)
[2023-05-31] MEDS: TICAGRELOR 90 MG TABLET PO (20:26)
[2023-06-01] VITALS (11 sets, daily range): BP systolic 123–152; BP diastolic 60–80; PULSE 67–88; RESP 16–20; TEMP 36.3–36.6; O2SAT 92–97
[2023-06-01 04:57] LABS: Anion Gap 9 mmol/L (4-12); Blood Urea Nitrogen 19 mg/dL (7-17); Carbon Dioxide 18 mmol/L (22-30); Chloride 111 mmol/L (98-107); Estimated CRCL calculation 38 ml/min; Estimated Glomerular Filt Rate 48; Glucose 152 mg/dL (65-110); Potassium 3.5 mmol/L (3.4-5.0); Sodium 138 mmol/L (137-145)
[2023-06-01 05:07] LABS: INR 2.1; Prothrombin Time 24.5 Seconds (11.1-14.7)
[2023-06-01] MEDS: guaiFENesin/DEXTROMETHORPHAN 10 ML UDC PO (06:27)
[2023-06-01] MEDS: PANTOPRAZOLE 40 MG TABLET PO (08:25)
[2023-06-01] MEDS: ASPIRIN 81 MG CHEWABLE TABLET PO (08:25)
[2023-06-01] MEDS: ROSUVASTATIN 10 MG TABLET 20 MG PO (08:26)
[2023-06-01] MEDS: LOSARTAN POTASSIUM 25 MG TABLET PO (08:26)
[2023-06-01] MEDS: TICAGRELOR 90 MG TABLET PO (08:26)
[2023-06-01] MEDS: AMIODARONE HCL 200 MG TABLET PO (08:26)
[2023-06-01] MEDS: METOPROLOL SUCCINATE EXT REL 50 MG TABCR PO (08:26)
[2023-06-01] MEDS: FERROUS SULFATE 325 MG TABLET DR PO (08:26)
--- NOTE | 2023-06-01 09:12 | PM.PNCARD ---
Progress Note: A&P Assessment and Plan (1) Atrial fibrillation with rapid ventricular response: Code(s): I48.91 - Unspecified atrial fibrillation Status: Acute Assessment and Plan: Recurrent symptomatic atrial fibrillation with RVR. She has now converted to sinus rhythm on amiodarone. Shifted to p.o. amiodarone this morning 200mg daily maintenance dose Continue systemic anticoagulation with warfarin. INR therapeutic OK for discharge from a cardiac perspective. (2) CAD (coronary artery disease): Code(s): I25.10 - Atherosclerotic heart disease of [place] coronary artery without angina pectoris Status: Acute Assessment and Plan: CAD with recent STEMI s/p PCI to the LAD. She also has disease in the LCX that will require intervention and plan had been to schedule PCI after she was seen in the office (appointment was set for this Wednesday). At this point will go ahead and schedule staged PCI to take place at [facility] within the next few weeks ASA can be discontinued in one week as she is now on warfarin for AF in addition to Brilinta She was able to get 1 month of Brilinta free but is unable to afford future fills. Script has already been called in to her pharmacy for Plavix with dosing instructions for shifting from Brilinta to Plavix. (3) Cardiomyopathy: Code(s): I42.9 - Cardiomyopathy, unspecified Status: Acute Assessment and Plan: EF 25 - 30%. She is being maintained on losartan and Toprol XL. Currently she is not in decompensated heart failure, but today has some crackles on exam. Will give 1 dose p.o. furosemide 40mg. (4) Essential hypertension: Code(s): I10 - Essential (primary) hypertension Status: Acute Assessment and Plan: BP at goal. (5) Mixed hyperlipidemia: Code(s): E78.2 - Mixed hyperlipidemia Status: Acute Assessment and Plan: Continue high intensity statin (6) Elevated troponin: Code(s): R79.89 - Other specified abnormal findings of blood chemistry Status: Acute Assessment and Plan: She has known underlying CAD, troponin elevated in the setting of tachycardia. She denies chest pain. EKG consistent with old anterior infarct with no evidence of acute CT. EKG 05/30 personally reviewed by myself and Dr. Cantu. Subjective Date/time seen: 06/01/23 09:12 Interval history: Cardiology follow up for atrial fibrillation, cardiomyopathy, CAD Date of service 06/01/2023: Remains in sinus rhythm this morning. Feels well - no shortness of breath, palpitations, chest pain, swelling. She is still complaining of a dry cough. Review of Systems Review of Systems: All systems reviewed & are unremarkable except as noted in HPI and below Exam Const: General: comfortable, no acute distress, alert and awake Orientation/consciousness: patient oriented x3 HENMT: Head: normal to inspection Eyes: General: appearance normal, both eyes and all related structures Pupils: Equal, round and reactive pupils present Neck: Neck: normal visual inspection, supple and no JVD Carotids: normal carotid upstroke Resp: Effort & Inspection: normal respiratory effort Auscultation: crackles bilateral at the base Cardio: Rate: regular rate Rhythm: regular rhythm Heart sounds: S1 normal heart sound present, S2 normal heart sound present and no murmurs GI: Auscultation: normal bowel sounds Skin: General skin exam: normal color Neuro: General: patient oriented x3 Cranial nerves: Yes Equal, round and reactive pupils present Extrem: General: normal to inspection Psych: Appearance: grossly normal Mental Status: mental status grossly normal Objective Data Vital Signs Vital Signs: Vital Signs - 24 hr 05/31/23 09:16 05/31/23 09:37 05/31/23 09:42 Temperature Pulse Rate 125 H 124 H 115 H Respiratory Rate 18 22 H Blood Pressure 120/80 117/87 117/87 Pulse Oximetry 97 96 Oxygen Delivery 05/31/23 09:50 0
[2023-06-01] MEDS: FUROSEMIDE 40 MG TABLET PO (10:00)
--- NOTE | 2023-06-01 11:09 | PM.DS ---
DS: Admitting Diagnosis Discharge Date 06/01/2023 Admitting Diagnosis Palpitation DS: Discharge Diagnosis Discharge Diagnosis (1) Atrial fibrillation with rapid ventricular response: Code(s): I48.91 - Unspecified atrial fibrillation Status: Acute (2) Elevated troponin: Code(s): R79.89 - Other specified abnormal findings of blood chemistry Status: Acute (3) Ischemic cardiomyopathy: Code(s): I25.5 - Ischemic cardiomyopathy Status: Acute (4) Coronary artery disease: Code(s): I25.10 - Atherosclerotic heart disease of [place] coronary artery without angina pectoris Status: Acute (5) Essential hypertension: Code(s): I10 - Essential (primary) hypertension Status: Acute (6) Mixed hyperlipidemia: Code(s): E78.2 - Mixed hyperlipidemia Status: Acute (7) Chronic kidney disease: Code(s): N18.9 - Chronic kidney disease, unspecified Status: Acute DS: Summary Hospital Course Hospital Course: The patient presented to the emergency department for evaluation of shortness of breath and chest discomfort as well as rapid heart rate on 05/31/2023. She was in rapid atrial fibrillation on arrival and received IV metoprolol without improvement. She was then started on amiodarone GTT and since then has converted to normal sinus rhythm. His been switched to cardiology has been consulted. She is status post anterior ST-elevation ND status post drug-eluting stent to proximal LAD on 05/08/2023, ischemic cardiomyopathy with ejection fraction of 25-30% hypertension and also had history of proximal atrial fibrillation. He has been started on warfarin anticoagulation since last admission at discharge of 05/23/2023 and has been maintained on 5 mg daily. Her INR was therapeutic during the hospital stay. Her troponin was mildly elevated at benign on admission. Cardiology did not feel this was an acute ST E elevation ND given her recent history. Okay per Cardiology to discharge the cost of Brilinta she has been switched to Plavix. She will discontinue aspirin in a week due to triple therapy. She is planned to get staged PCI of the been scheduled at see any in next few weeks for intervention in the disease in the LCX Ischemic cardiomyopathy well compensated on losartan and Toprol XL. DVT prophylaxis on warfarin with therapeutic INR. Time Spent with Patient Time attestation: Total time spent providing and/or coordinating discharge services: Exam Narrative: General: Well-developed, nontoxic-appearing female sitting up in bed in no distress. HEENT: Wearing corrective lenses. PERRL, EOMI. Sclera anicteric. Oral mucosa moist. Neck: Supple. No JVD. Respiratory: Lungs are clear to auscultation bilaterally. Cardiovascular: Regular rate and rhythm with S1-S2. Gastrointestinal: Abdomen is soft, nontender, and nondistended with positive bowel sounds. Skin: Warm and dry. No rash or lesions on limited exam. Extremities: No cyanosis, clubbing, or edema. Radial and pedal pulses intact. Neurological: Alert. Cranial nerves 2-12 are grossly intact. No gross focal deficits to casual conversation. Psychiatric: Pleasant and cooperative with normal mood and affect. Judgment and insight intact. DS: Data Data Completed and Pending Labs on day of discharge: Labs from last 24 hours 06/01/23 05/31/23 05/31/23 04:23 14:56 11:50 PT 24.5 H INR 2.1 Sodium 138 Potassium 3.5 Chloride 111 H Carbon Dioxide 18 L Anion Gap 9 BUN 19 H Creatinine 1.10 H Estim Creat Clear Calc 38 Estimated GFR 48 L Glucose 152 H Calcium 9.0 Magnesium 2.0 Troponin I 0.033 D 0.042 H* Imaging Radiologist's impression: ITS Impressions Chest X-Ray 05/31/23 09:27 IMPRESSION: 1. Mild atelectasis in the lower lung zones. Discharge Plan Discharge Attending physician on discharge: Madi Kirk Consulting providers: Titi Love
== END 2023-06-01 12:50 | disposition home or self-care (01) ==
LOC: ANHED 10:34 → ANHIMU 06-01 11:09
PROVIDERS: Physician Assistant; Admitting Provider Student in an Organized Health Care Education/Training Program; Emergency Provider Emergency Medicine; Visit Provider Internal Medicine
DX: I48.91 Unspecified atrial fibrillation (principal); R79.89 Other specified abnormal findings of blood chemistry; I25.5 Ischemic cardiomyopathy; I25.10 Atherosclerotic heart disease of native coronary artery without angina pectoris; Z95.5 Presence of coronary angioplasty implant and graft; I44.4 Left anterior fascicular block; I25.2 Old myocardial infarction; I48.0 Paroxysmal atrial fibrillation; E78.2 Mixed hyperlipidemia; I12.9 Hypertensive chronic kidney disease with stage 1 through stage 4 chronic kidney disease, or unspecified chronic kidney disease; N18.9 Chronic kidney disease, unspecified; D50.9 Iron deficiency anemia, unspecified; Z96.652 Presence of left artificial knee joint; Z90.89 Acquired absence of other organs; Z79.01 Long term (current) use of anticoagulants; Z79.82 Long term (current) use of aspirin; Z79.899 Other long term (current) drug therapy
CPT/HCPCS: 36415; 71045; 73130; 80048; 80053; 83690; 83735; 84484; 85025; 85610; 85730; 93005; 96365; 96366; 96375; 99285; A9270; G0378; J0282; J7030

== ENCOUNTER 2023-06-01 14:24 | Outpatient (CLI) | payer MEDICARE, SELFPAY ==
--- NOTE | ~2023-06-01 | XR_ITS ---
Right Hand Technique: PA, oblique, and lateral views were obtained. Clinical History: Third digit mass Findings: No acute fracture or dislocation is seen. There is severe osteoarthritis of the first CMC j oint. There is severe probable erosive osteoarthritis versus other inflammatory arthropathy involving the second and third DIP joints. There is moderate degenerative osteoarthritis of the fifth DIP join t. Soft tissues are unremarkable. 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 Advanced osteoarthrosis of the fifth DIP joint and first CMC joint. Reviewed, dictated and finalized at location M. 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 Advanced osteoarthrosis of the fifth DIP joint and first CMC joint.
== END 2023-06-01 14:25 | disposition home or self-care (01) ==
LOC: ANHIMG 14:27
PROVIDERS: Visit Provider Plastic Surgery
DX: M19.041 Primary osteoarthritis, right hand (principal); R22.31 Localized swelling, mass and lump, right upper limb
CPT/HCPCS: 73130

== ENCOUNTER 2023-06-05 10:41 | Outpatient (CLI) | payer MEDICARE, SELFPAY ==
--- NOTE | ~2023-06-05 | US_ITS ---
EXAMINATION: US soft tissue UE RT DATE: 06/05/2023 11:25 INDICATION: Right middle finger mass. TECHNIQUE: Multiple grayscale and Doppler ultrasound images of the right middle finger were obtained. COMPARISON: Right hand radiographs 06/01/2023 FINDINGS: At the palmar aspect of the third proximal interphalangeal joint, there is a 10 mm mass of mixed echogenicity. IMPRESSION: 1. 10 mm mass at the palmar aspect of third proximal interphalangeal joint. The differential diagnosi s includes synovitis, surgical change, and other periarticular inflammation/scarring. Reviewed, dictated and finalized at location E. IMPRESSION: 1. 10 mm mass at the palmar aspect of third proximal interphalangeal joint. The differential diagnosis includes synovitis, surgical change, and other periarti cular inflammation/scarring.
== END 2023-06-05 10:42 ==
LOC: MICIMG 10:42
PROVIDERS: PCP Plastic Surgery; Visit Provider Plastic Surgery
DX: R22.31 Localized swelling, mass and lump, right upper limb (principal)
CPT/HCPCS: 76882

== ENCOUNTER 2023-06-10 23:52 | Emergency (ER) | payer MEDICARE, SELFPAY ==
--- NOTE | ~2023-06-10 | XR_ITS ---
Portable chest x-ray Comparison: 05/31/2023 Clinical History: Heart fluttering Findings: There are mild central congestive changes. No pleural effusion or pneumothorax. Cardiomed iastinal silhouette is stable. Bones and soft tissues are unremarkable. Impression: Mild central congestive changes. Reviewed, dictated and finalized at [facility]. Impression: Mild central congestive changes.
[2023-06-10 23:52] VITALS: BP 146/76; PULSE 68; RESP 15; TEMP 36.8; O2SAT 99
--- NOTE | 2023-06-11 00:03 | ED.CHESTPAIN ---
HPI - Chest Pain General Chief Complaint: Chest Pain Stated Complaint: chest pain Time Seen by Provider: 06/10/23 23:58 History of Present Illness HPI narrative: Patient is a 77-year-old female who presents ER with heart palpitations. There ongoing from 9:00 p.m. to 11:00 p.m.. She felt like her heart was flip-flopping round like she was having her atrial fibrillation. Her heart was not racing. She was not having chest pain or chest heaviness. No shortness of breath. Discharged today from [facility] after having a heart catheterization to stent her circumflex artery. Her photographic editor here is Dr. Cantu. Patient is anticoagulated with Coumadin. Related Data Home Medications Medication Instructions Recorded Confirmed nystatin 100,000 unit/gram topical 1 applic topical DAILY PRN Rash 11/18/21 06/01/23 cream ferrous sulfate 325 mg (65 mg 325 mg PO DAILY 05/08/23 06/01/23 iron) tablet,delayed release pantoprazole 40 mg tablet,delayed 40 mg PO EVERY OTHER DAY 05/31/23 06/01/23 release Allergies Allergy/AdvReac Type Severity Reaction Status Date / Time No Known Allergies Allergy Mild Verified 06/01/23 13:08 Review of Systems Review of Systems: All systems reviewed & are unremarkable except as noted in HPI and below Constitutional: Constitutional: Reports no additional constitutional complaints ENT: Reports system reviewed and no additional complaints, except as documented Cardiovascular: Cardiovascular: Denies chest pain, Denies rapid heart rate and Reports radiating jaw, neck or arm pain Comments: palpitations Respiratory: Respiratory: Reports no additional respiratory complaints Gastrointestinal: Gastrointestinal: Reports no additional gastrointestinal complaints Neurologic: Reports system reviewed and no additional complaints, except as documented [facility] Past Medical History Medical History (Updated 06/11/23 @ 05:10 by Salas Parsons MD) Chronic kidney disease Coronary artery disease Anterior wall [place] 05/08/2023 status post drug-eluting stent to proximal LAD. Essential hypertension Hyperlipidemia Iron deficiency anemia Ischemic cardiomyopathy EF 25 to 30% in April 2023. Mixed hyperlipidemia Paroxysmal atrial fibrillation ST elevation myocardial infarction (STEMI) of anterior wall (05/08/23) Surgical History Surgical History (Updated 05/31/23 @ 14:45 by Berna Ortega PA-C) History of cardiac catheterization History of cholecystectomy History of coronary artery stent placement History of knee replacement procedure of left knee History of surgical amputation of finger of right hand Family History Family History Mother Hypercholesteremia Father Hypercholesteremia COPD (chronic obstructive pulmonary disease) Other Diabetes mellitus Hypertension Social History Social History (Updated 05/31/23 @ 14:44 by Berna Ortega PA-C) Social History: Surrogate medical decision maker: Sukhwinder Pitts, spouse. Code status: Full code. Smoking status: Never smoker Alcohol intake: never Drinks per week: 1 Substance use: never Substance use type: does not use Do You Feel Safe in your Home?: Yes Lack of Transportation: No Lack of Food: Never True Current Housing: I Have Housing Concerned About Future Housing: No Difficulty Paying Gas/Electric Bills: No Difficulty Paying for Meds: No Currently Unemployed: No Education: Grade School Difficulty w/ Childcare or Family Care: No Living arrangements: with family Spiritual care concerns: No Exam Narrative: GENERAL: Well-appearing, well-nourished, and in no acute distress. HEAD: Normocephalic, atraumatic. ENT: Mucous membranes moist. NECK: Supple. CHEST: Clear to auscultation. No respiratory distress. HEART: Regular rate and rhythm. Normal peripheral pulses. ABDOMEN: Soft, nontender, nondistended. EXTREMITIES: Norm
--- NOTE | 2023-06-11 00:07 | ECG_ITS ---
SEE SCANNED COPY FOR CONFIRMED REPORT MTDD
[2023-06-11 00:39] LABS: INR 1.5; Prothrombin Time 18.9 Seconds (11.1-14.7)
[2023-06-11 00:40] LABS: Partial Thromboplastin Time 37.9 Seconds (22.3-36.8)
[2023-06-11 00:53] LABS: Basophils Percent Auto 0.4 % (0.2-1.2); Eosinophils Absolute Auto 0.3 K/mm3 (0-0.3); Eosinophils Percent Auto 3.8 % (0-4.4); Hematocrit 34.3 % (37.0-47.0); Hemoglobin 10.6 g/dL (12.0-15.0); Immature Granulocyte Absolute 0.05 K/mm3 (0.00-0.031); Immature Granulocyte Percent A 0.6 % (0-0.5); Lymphocytes Absolute Auto 1.04 K/mm3 (0.9-3.2); Lymphocytes Percent Auto 13.3 % (18.3-44.2); Mean Corpuscular HGB Conc 30.9 g/dl (32-36); Mean Corpuscular Hemoglobin 25.1 pg (26-34); Mean Corpuscular Volume 81.1 fl (80-100); Mean Platelet Volume 10.4 fl (7.4-10.4); Monocytes Absolute Auto 0.8 K/mm3 (0.1-0.6); Neutrophils Absolute Auto 5.6 K/mm3 (1.3-6.7); Neutrophils Percent Auto 71.9 % (45.5-73.1); Platelet Count Result 275 k/mm3 (150-375); Red Blood Count 4.23 M/mm3 (4.2-5.4); White Blood Count 7.8 K/mm3 (4.5-10.0)
[2023-06-11 03:23] VITALS: BP 150/66; PULSE 66; RESP 15; O2SAT 100
[2023-06-11 04:10] LABS: Lipase 142 U/L (23-300)
[2023-06-11 05:07] LABS: Troponin I 0.487 ng/mL (0.000-0.034)
[2023-06-11 05:08] LABS: Alanine Aminotransferase 15 U/L (6-35); Albumin Level 3.6 g/dL (3.5-5.1); Alkaline Phosphatase 76 U/L (38-126); Anion Gap 6 mmol/L (4-12); Aspartate Amino Transferase 29 U/L (14-36); Bilirubin,Total 0.7 mg/dL (0.2-1.3); Blood Urea Nitrogen 18 mg/dL (7-17); Calcium 8.9 mg/dL (8.4-10.2); Carbon Dioxide 21 mmol/L (22-30); Chloride 112 mmol/L (98-107); Estimated CRCL calculation 37 ml/min; Estimated Glomerular Filt Rate 44; Glucose 132 mg/dL (65-110); Potassium 3.6 mmol/L (3.4-5.0); Sodium 139 mmol/L (137-145)
[2023-06-11 06:02] VITALS: BP 140/76; PULSE 76; RESP 15; O2SAT 98
== END 2023-06-11 06:03 | disposition home or self-care (01) ==
PROVIDERS: Emergency Provider Emergency Medicine
DX: R00.2 Palpitations (principal); I12.9 Hypertensive chronic kidney disease with stage 1 through stage 4 chronic kidney disease, or unspecified chronic kidney disease; N18.9 Chronic kidney disease, unspecified; I25.5 Ischemic cardiomyopathy; I48.0 Paroxysmal atrial fibrillation; I25.2 Old myocardial infarction; E78.2 Mixed hyperlipidemia; D50.9 Iron deficiency anemia, unspecified; Z95.5 Presence of coronary angioplasty implant and graft; Z96.652 Presence of left artificial knee joint; Z90.49 Acquired absence of other specified parts of digestive tract; Z89.021 Acquired absence of right finger(s); Z79.82 Long term (current) use of aspirin; Z79.01 Long term (current) use of anticoagulants; I45.9 Conduction disorder, unspecified; I51.7 Cardiomegaly
CPT/HCPCS: 36415; 71045; 80053; 83690; 84484; 85025; 85610; 85730; 93005; 99284

== ENCOUNTER 2023-06-23 06:21 | Observation (INO) | payer MEDICARE, SELFPAY ==
[2023-06-23] VITALS (21 sets, daily range): BP systolic 126–146; BP diastolic 54–77; PULSE 57–74; RESP 15–23; TEMP 36.1–36.6; O2SAT 96–100; BMI 33.1
[2023-06-23 07:20] LABS: Basophils Percent Auto 0.5 % (0.2-1.2); Eosinophils Absolute Auto 0.2 K/mm3 (0-0.3); Eosinophils Percent Auto 4.1 % (0-4.4); Hematocrit 35.5 % (37.0-47.0); Hemoglobin 10.7 g/dL (12.0-15.0); Immature Granulocyte Absolute 0.02 K/mm3 (0.00-0.031); Immature Granulocyte Percent A 0.3 % (0-0.5); Lymphocytes Absolute Auto 0.87 K/mm3 (0.9-3.2); Lymphocytes Percent Auto 14.7 % (18.3-44.2); Mean Corpuscular HGB Conc 30.1 g/dl (32-36); Mean Corpuscular Hemoglobin 24.9 pg (26-34); Mean Corpuscular Volume 82.8 fl (80-100); Mean Platelet Volume 9.4 fl (7.4-10.4); Monocytes Absolute Auto 0.7 K/mm3 (0.1-0.6); Monocytes Percent Auto 11.4 % (2.6-8.5); Neutrophils Absolute Auto 4.1 K/mm3 (1.3-6.7); Platelet Count Result 315 k/mm3 (150-375); Red Blood Count 4.29 M/mm3 (4.2-5.4); Red Cell Distribution Width 14.5 % (11.5-14.5); White Blood Count 5.9 K/mm3 (4.5-10.0)
[2023-06-23 07:29] LABS: Alanine Aminotransferase 12 U/L (6-35); Albumin Level 3.6 g/dL (3.5-5.1); Alkaline Phosphatase 69 U/L (38-126); Anion Gap 6 mmol/L (4-12); Aspartate Amino Transferase 23 U/L (14-36); Bilirubin,Total 0.6 mg/dL (0.2-1.3); Blood Urea Nitrogen 15 mg/dL (7-17); Calcium 8.9 mg/dL (8.4-10.2); Carbon Dioxide 24 mmol/L (22-30); Chloride 111 mmol/L (98-107); Estimated CRCL calculation 30 ml/min; Estimated Glomerular Filt Rate 37; Glucose 143 mg/dL (65-110); Potassium 3.6 mmol/L (3.4-5.0); Sodium 141 mmol/L (137-145)
[2023-06-23 07:36] LABS: Partial Thromboplastin Time 128.3 Seconds (22.3-36.8)
[2023-06-23 07:41] LABS: INR 7.1
--- NOTE | 2023-06-23 07:41 | ED.GENADULT ---
HPI - General Adult General Chief complaint: Recheck/Abnormal Lab/Rx Stated complaint: INR of 11 Time Seen by Provider: 06/23/23 07:01 History of Present Illness HPI narrative: Patient is a 77-year-old female who presents ER for an abnormal outpatient labs. She reports she had an INR drawn on 06/21/2023 and it was a critical level of 11. She is sent here for further evaluation. Reports she has had some bruising to her arms are recent procedure but otherwise no evidence of easy bleeding. No bleeding of the gums. She reports nausea she I has some blood in at. She is currently on Keflex. No blood in her stool. No shortness of breath. No trauma to the head. Related Data Home Medications Medication Instructions Recorded Confirmed ferrous sulfate 325 mg (65 mg 325 mg PO EVERY OTHER DAY 05/08/23 06/23/23 iron) tablet,delayed release pantoprazole 40 mg tablet,delayed 40 mg PO 2XW 05/31/23 06/23/23 release cephalexin 500 mg capsule 500 mg PO TID 06/23/23 06/23/23 losartan 25 mg tablet 50 mg PO DAILY 06/23/23 06/23/23 rosuvastatin 10 mg tablet (Crestor) 20 mg PO DAILY 06/23/23 06/23/23 Allergies Allergy/AdvReac Type Severity Reaction Status Date / Time No Known Allergies Allergy Mild Verified 06/23/23 06:31 Review of Systems Review of Systems: All systems reviewed & are unremarkable except as noted in HPI and below Constitutional: Constitutional: Reports no additional constitutional complaints ENT: Reports system reviewed and no additional complaints, except as documented Cardiovascular: Cardiovascular: Reports no additional cardiovascular complaints Respiratory: Respiratory: Reports no additional respiratory complaints Gastrointestinal: Gastrointestinal: Reports no additional gastrointestinal complaints Genitourinary: Genitourinary: Reports hematuria, Denies nocturia and Denies dysuria [facility] Past Medical History Medical History (Updated 06/23/23 @ 18:22 by Salas Parsons MD) Chronic kidney disease Coronary artery disease Anterior wall [place] 05/08/2023 status post drug-eluting stent to proximal LAD. Essential hypertension Hyperlipidemia Iron deficiency anemia Ischemic cardiomyopathy EF 25 to 30% in April 2023. Mixed hyperlipidemia Paroxysmal atrial fibrillation ST elevation myocardial infarction (STEMI) of anterior wall (05/08/23) Surgical History Surgical History History of cardiac catheterization History of cholecystectomy History of coronary artery stent placement History of knee replacement procedure of left knee History of surgical amputation of finger of right hand Family History Family History Mother Hypercholesteremia Father Hypercholesteremia COPD (chronic obstructive pulmonary disease) Other Diabetes mellitus Hypertension Social History Social History Social History: Surrogate medical decision maker: Sukhwinder Pitts, spouse. Code status: Full code. Smoking status: Never smoker Alcohol intake: never Drinks per week: 1 Substance use: never Substance use type: does not use Do You Feel Safe in your Home?: Yes Lack of Transportation: No Lack of Food: Never True Current Housing: I Have Housing Concerned About Future Housing: No Difficulty Paying Gas/Electric Bills: No Difficulty Paying for Meds: No Currently Unemployed: No Education: Grade School Difficulty w/ Childcare or Family Care: No Living arrangements: with family Spiritual care concerns: No Exam Narrative: GENERAL: Well-appearing, well-nourished, and in no acute distress. HEAD: Normocephalic, atraumatic. ENT: Mucous membranes moist. CHEST: Clear to auscultation. No respiratory distress. HEART: Regular rate and rhythm. Normal peripheral pulses. ABDOMEN: Soft, nontender, nondistended. EXTREMITIES: Normal range of motio
[2023-06-23 08:30] LABS: Appearance Urine Turbid (Clear); Bacteria Urine 3+ /hpf; Bilirubin Urine Negative (Negative); Blood Urine 3+ (Negative); Color Urine Yellow (Yellow); Glucose Urine UA Negative (Negative); Hyaline Casts Urine Present /lpf; Ketones Urine Negative (Negative); Leukocyte Esterase Ur 2+ LEU/UL (Negative); Need Manual Microscopic Reviewed; Nitrate Urine Negative (Negative); Protein Urine 1+ mg/dL (Negative); RBC Urine >100 /hpf (0-2); Specific Grav Ur 1.015 (1.001-1.035); Squamous Epithelial Cell Urine Many /hpf (Few); WBC Urine >100 /hpf (0-3); White Blood Cell Casts Urine Present /lpf
[2023-06-23 08:32] LABS: Add Urine Microscopic? YES
[2023-06-23] MEDS: PHYTONADIONE 2.5 MG TAB PO (09:07)
--- NOTE | 2023-06-23 12:36 | PM.IMHP ---
H&P: HPI History of Present Illness Date/Time: 06/23/23 12:36 Chief Complaint: Abnormal Lab Narrative: 77 y/o F presents here with an elevated INR with PMH of CKD, CAD, HTN, HLD, MEE, pAFib, STEMI (05/08/23, s/p PCI of LAD), cardiac stent (05/2023, stent of circumflex artery at [facility]). Patient presents here with a supratherapeutic INR. Patient had lab draw done on 06/21/23 which showed an INR of 11. Previously 1.5 on 06/11/23. Repeat today showed INR of 7.1. Patient is currently on Warfarin 5 mg daily and started in April of 2023 secondary to Afib/stroke prophylaxis. Patient reports no dark tarry stools, BRB per rectum, bleeding of the gums, hematemesis, or abnormal bleeding. +Hematuria x7-10 days. Has since developed pelvic pressure/fullness in the last 2-3 days. Recently diagnosed with a UTI on 06/21 and started on cephalexin 500 mg BID by her PCP, script filled on 06/21 (has had 2 doses). No associated dysuria or urinary frequency. Initial VS at presentation: 98? F, HR 71, RR 22, 142/77, and 96% on RA. ED workup showed: no leukocytosis, stable anemia with Hgb 10.7, INR 7.1, creatinine 1.4 and GFR 37, glucose 143. Review of Systems Review of Systems: All systems reviewed & are unremarkable except as noted in HPI and below PMFSH Past Medical History Medical History Chronic kidney disease Coronary artery disease Anterior wall [place] 05/08/2023 status post drug-eluting stent to proximal LAD. Essential hypertension Hyperlipidemia Iron deficiency anemia Ischemic cardiomyopathy EF 25 to 30% in April 2023. Mixed hyperlipidemia Paroxysmal atrial fibrillation ST elevation myocardial infarction (STEMI) of anterior wall (05/08/23) Surgical History Surgical History History of cardiac catheterization History of cholecystectomy History of coronary artery stent placement History of knee replacement procedure of left knee History of surgical amputation of finger of right hand Family History Family History Mother Hypercholesteremia Father Hypercholesteremia COPD (chronic obstructive pulmonary disease) Other Diabetes mellitus Hypertension Social History Social History Social History: Surrogate medical decision maker: Sukhwinder Pitts, spouse. Code status: Full code. Smoking status: Never smoker Alcohol intake: never Drinks per week: 1 Substance use: never Substance use type: does not use Do You Feel Safe in your Home?: Yes Lack of Transportation: No Lack of Food: Never True Current Housing: I Have Housing Concerned About Future Housing: No Difficulty Paying Gas/Electric Bills: No Difficulty Paying for Meds: No Currently Unemployed: No Education: Grade School Difficulty w/ Childcare or Family Care: No Living arrangements: with family Spiritual care concerns: No Meds Home Medications and Allergies Home Medications Medication Instructions Recorded Confirmed Type ferrous sulfate 325 mg (65 mg 325 mg PO EVERY OTHER DAY 05/08/23 06/23/23 History iron) tablet,delayed release nitroglycerin 0.4 mg sublingual 0.4 mg sublingual Q5MIN PRN Chest 05/11/23 06/23/23 Rx tablet (Nitrostat) Pain 30 days #10 tabs metoprolol succinate 50 mg 50 mg PO QAM #30 tabs 05/23/23 06/23/23 Rx tablet,extended release 24 hr warfarin 5 mg tablet 5 mg PO 1700 #30 tabs 05/23/23 06/23/23 Rx pantoprazole 40 mg tablet,delayed 40 mg PO 2XW 05/31/23 06/23/23 History release amiodarone 200 mg tablet (Pacerone) 200 mg PO DAILY@0800 #30 tabs 06/01/23 06/23/23 Rx aspirin 81 mg chewable tablet 81 mg PO DAILY@0800 #7 tabs 06/01/23 06/23/23 Rx (Children's Aspirin) clopidogrel 75 mg tablet 75 mg PO DAILY #30 tabs 06/01/23 06/23/23 Rx cephalexin 500 mg capsule 500 mg PO TID 06/23/23 06/23/23 Hist
--- NOTE | 2023-06-23 13:21 | PM.CNCAR ---
Assessment and Plan Assessment and plan (1) Supratherapeutic INR: Code(s): R79.1 - Abnormal coagulation profile Status: Acute Assessment and Plan: Stop Warfarin. Continue to monitor daily INRs. Patient is on Warfarin for stroke prophylaxis for atrial fibrillation. Started on Warfarin because she was worried about the cost of NOACs, however, she tells me that she never checked the prices of NOACs with her pharmacy and not sure what the cost would be with her insurance. Therefore, plan to stop Warfarin completely. Once INR is normalized, will plan to start Xarelto. We can give her samples of Xarelto from our office prior to discharge, and if the cost of Xarelto is too much for her, can help her apply for financial manager. She is agreeable to this plan (2) Paroxysmal atrial fibrillation: Code(s): I48.0 - Paroxysmal atrial fibrillation Status: Acute Assessment and Plan: Patient is on Warfarin for stroke prophylaxis for atrial fibrillation. Started on Warfarin because she was worried about the cost of NOACs, however, she tells me that she never checked the prices of NOACs with her pharmacy and not sure what the cost would be with her insurance. Therefore, plan to stop Warfarin completely. Once INR is normalized, will plan to start Xarelto. We can give her samples of Xarelto from our office prior to discharge, and if the cost of Xarelto is too much for her, can help her apply for financial manager. She is agreeable to this plan (3) CAD (coronary artery disease): Code(s): I25.10 - Atherosclerotic heart disease of [place] coronary artery without angina pectoris Status: Acute Assessment and Plan: Stable. Continue ASA, Plavix. Patient to be on triple therapy until 07/08/2023, which will be 1 month from the time of her PCI. Can stop ASA after 07/07 and continue with Plavix. Continue Rosuvastatin. (4) Ischemic cardiomyopathy: Code(s): I25.5 - Ischemic cardiomyopathy Status: Acute Assessment and Plan: Stable. Continue Losartan, Metoprolol (5) Mixed hyperlipidemia: Code(s): E78.2 - Mixed hyperlipidemia Status: Acute Assessment and Plan: Continue statin (6) Essential hypertension: Code(s): I10 - Essential (primary) hypertension Status: Acute Assessment and Plan: Stable. Continue Losartan, Metoprolol History of Present Illness History of Present Illness Consult date/time: 06/23/23 13:21 Requesting physician: Salas Parsons MD Consult reason: Other (Elevated INR) Reason For Visit: supratherapeutic inr,uti Narrative: This is a 77 year old female with the following history: 1. Coronary artery disease, anterior STEMI in April 2023 s/p PCI to the LAD. S/p PCI of LCX in May 2023 2. Ischemic cardiomyopathy with LVEF 25-30% per TTE 04/2023 3. Atrial fibrillation in setting of STEMI with recurrence of AFIB afterwards 4. Hypertension 5. Hyperlipidemia Patient had INR checked 06/21 which showed INR of 11. She was instructed to go to ER. Has some intermittent hematuria, bruising on skin. Has been on Warfarin 5mg once daily. Denies taking any extra doses. However, has never really established baseline Warfarin dosing as she had to stop Warfarin, for staged PCI, had Amiodarone started, and taking antibiotics. INR in the ER today is 7.1. Given 2.5mg PO Vitamin K. Review of Systems Review of Systems: All systems reviewed & are unremarkable except as noted in HPI and below (HPI) [facility] Past Medical History Medical History (Updated 06/23/23 @ 13:37 by Zelalem Grissom MD) Chronic kidney disease Coronary artery disease Anterior wall [place] 05/08/2023 status post drug-eluting stent to proximal LAD. Essential hypertension Hyperlipidemia Iron deficiency anemia Ischemic cardiomyopathy EF 25 to 30% in April 2023. Mixed hyperlipidemia Paroxysmal atrial fibrillation ST elevation myocardial infarction (STEMI) of anterior wall (05/08/23) Surgical Histor
[2023-06-23] MEDS: ASPIRIN 81 MG ENTERIC TABLET PO (14:58)
[2023-06-23] MEDS: CLOPIDOGREL BISULFATE 75 MG TABLET PO (14:58)
[2023-06-24 04:56] LABS: Basophils Percent Auto 0.8 % (0.2-1.2); Eosinophils Absolute Auto 0.3 K/mm3 (0-0.3); Eosinophils Percent Auto 5.3 % (0-4.4); Hematocrit 32.9 % (37.0-47.0); Hemoglobin 9.9 g/dL (12.0-15.0); Immature Granulocyte Absolute 0.03 K/mm3 (0.00-0.031); Immature Granulocyte Percent A 0.6 % (0-0.5); Lymphocytes Absolute Auto 0.94 K/mm3 (0.9-3.2); Lymphocytes Percent Auto 17.9 % (18.3-44.2); Mean Corpuscular HGB Conc 30.1 g/dl (32-36); Mean Corpuscular Hemoglobin 24.5 pg (26-34); Mean Corpuscular Volume 81.4 fl (80-100); Mean Platelet Volume 9.6 fl (7.4-10.4); Monocytes Absolute Auto 0.6 K/mm3 (0.1-0.6); Monocytes Percent Auto 11.5 % (2.6-8.5); Neutrophils Absolute Auto 3.4 K/mm3 (1.3-6.7); Neutrophils Percent Auto 63.9 % (45.5-73.1); Platelet Count Result 299 k/mm3 (150-375); Red Blood Count 4.04 M/mm3 (4.2-5.4); Red Cell Distribution Width 14.2 % (11.5-14.5); White Blood Count 5.2 K/mm3 (4.5-10.0)
[2023-06-24 05:05] LABS: INR 4.9; Prothrombin Time 50.8 Seconds (11.1-14.7)
[2023-06-24 05:12] VITALS: BP 145/70; PULSE 73; RESP 17; TEMP 36.4; O2SAT 97
[2023-06-24 07:04] LABS: Anion Gap 3 mmol/L (4-12); Blood Urea Nitrogen 14 mg/dL (7-17); Calcium 8.6 mg/dL (8.4-10.2); Carbon Dioxide 23 mmol/L (22-30); Chloride 110 mmol/L (98-107); Estimated CRCL calculation 35 ml/min; Estimated Glomerular Filt Rate 44; Glucose 125 mg/dL (65-110); Potassium 3.5 mmol/L (3.4-5.0); Sodium 136 mmol/L (137-145)
--- NOTE | 2023-06-24 07:33 | PM.IMPN ---
Progress Note: A&P Assessment and Plan (1) Supratherapeutic INR: Code(s): R79.1 - Abnormal coagulation profile Status: Acute Assessment and Plan: 06/23/23: - INR 7.1 - on Warfarin 5 mg daily, hold - cardiology consulted, Jaciel CROFT provided the following recs: d/c warfarin hold anticoagulation until INR normal exchange to Xarelto post-normalization of INR - monitor CBC 06/24/23: INR down to 4.9 today Cardiology following Continue to hold warfarin Continue to monitor labs Plan for Eliquis when in therapeutic range (2) UTI (urinary tract infection): Code(s): N39.0 - Urinary tract infection, site not specified Status: Acute Assessment and Plan: 06/23/23: - UA: Turbid, 1+ protein, 3+ blood, 2+ leuks, greater than 100 RBC and WBC, many epithelial cells, 3+ bacteria, WBC cast present - UC pending, obtained on 06/22 - previous micro reviewed - started on Ceftriaxone on 06/22, two doses of Keflex on 06/21 - obtain post-void residual, described bladder/pelvic fullness 06/24/23: Patient had 2 doses of Keflex which was started on 06/22/2023 Continue Rocephin Urine culture pending (3) Coronary artery disease: Code(s): I25.10 - Atherosclerotic heart disease of [place] coronary artery without angina pectoris Status: Acute Assessment and Plan: 06/23/23: - started on triple therapy in April secondary to [place]/stent placement, continue until 07/08/23. - stop ASA on 07/07, continue Plavix and statin. 06/24/23: No change to current treatment plan (4) Iron deficiency anemia: Code(s): D50.9 - Iron deficiency anemia, unspecified Status: Acute Assessment and Plan: 06/23/23: - Hgb 10.7, previously 10.6 on 06/11/23 - trend CBC - continue iron supplement 06/24/23: Hemoglobin 9.9 Continue iron supplementation No change to current treatment plan (5) Essential hypertension: Code(s): I10 - Essential (primary) hypertension Status: Acute Assessment and Plan: 06/23/23: - chronic, currently 127/54 - continue home medications: losartan 50 mg and metoprolol 50 mg q.a.m. - monitor 06/24/23: Blood pressure ranging 127/54 to 145/70 Continue with current treatment plan Time Spent With Patient Time with patient: Greater than 35 minutes Subjective Date/time seen: 06/24/23 07:33 Interval history: This is a 77-year-old female with significant past medical history AFib/stroke on Coumadin from April of this year who presented to the hospital on 06/23/2023 with abnormal labs. Patient presented with a supratherapeutic INR of 11. Warfarin was placed on hold. Of note she was recently diagnosed with a urinary tract infection and had some hematuria for 7-10 days. She was placed on cephalexin 500 mg b.i.d. by her primary care physician. She is had 2 doses since then. Workup in the hospital included a chest x-ray which shows mild central congestive changes. Initial labs revealed a hemoglobin of 10.7, INR 7.1, creatinine 1.4, EGFR 37. She also had a UA which showed 1+ urine protein, 3+ urine blood, 2+ leukocytes, greater than 100 urine RBC, greater than 100 urine WBC, 3+ bacteria, presence of white blood cell casts, many urine squamous epithelial cells. Urine culture was obtained and is pending. On examination today patient is alert and oriented x3, lying in the bed. is at the bedside. Patient denies any fever, chills, nausea, vomiting, diarrhea, abdominal pain, chest pain, shortness of breath. Patient endorses dysuria and hematuria still. Urine culture is pending. Continue with Rocephin for now.Labs today shown hemoglobin of 9.9, INR is now down to 4.9, sodium 136, creatinine 1.2, EGFR 44. Review of Systems Review of Systems: All systems reviewed & are unremarkable except as noted in HPI and below Constitutional: Constitutional: Reports as per HPI and Reports no additional constitutional complaints Eyes: Eyes: Reports as per HPI and Rep
[2023-06-24 07:55] VITALS: RESP 18; O2SAT 97
[2023-06-24 08:12] VITALS: PULSE 84
[2023-06-24] MEDS: FERROUS SULFATE 325 MG TABLET DR PO (08:12)
[2023-06-24] MEDS: CLOPIDOGREL BISULFATE 75 MG TABLET PO (08:12)
[2023-06-24] MEDS: METOPROLOL SUCCINATE EXT REL 50 MG TABCR PO (08:12)
[2023-06-24] MEDS: LOSARTAN POTASSIUM 25 MG TABLET 50 MG PO (08:13)
[2023-06-24] MEDS: ASPIRIN 81 MG CHEWABLE TABLET PO (08:14)
[2023-06-24 08:15] VITALS: PULSE 84
[2023-06-24] MEDS: AMIODARONE HCL 200 MG TABLET PO (08:15)
[2023-06-24] MEDS: ROSUVASTATIN 10 MG TABLET 20 MG PO (08:15)
[2023-06-24 14:00] VITALS: BP 122/61; PULSE 64; RESP 16; TEMP 36.5; O2SAT 94
--- NOTE | 2023-06-24 14:43 | PM.PNCARD ---
Progress Note: A&P Assessment and Plan (1) Supratherapeutic INR: Code(s): R79.1 - Abnormal coagulation profile Status: Acute Assessment and Plan: INR improved from 7.1 to 4.9 after getting Vitamin K 2.5mg PO. Will give one time dose of PO Vitamin K 5mg today to expedite the process. Patient is on Warfarin for stroke prophylaxis for atrial fibrillation. Started on Warfarin because she was worried about the cost of NOACs, however, she tells me that she never checked the prices of NOACs with her pharmacy and not sure what the cost would be with her insurance. Therefore, plan to stop Warfarin completely. Once INR is normalized, will plan to start Eliquis (patient prefers Eliquis over Xarelto). I gave her one month supply of Eliquis today for her to take home after discharge. (2) Paroxysmal atrial fibrillation: Code(s): I48.0 - Paroxysmal atrial fibrillation Status: Acute Assessment and Plan: Patient is on Warfarin for stroke prophylaxis for atrial fibrillation. Started on Warfarin because she was worried about the cost of NOACs, however, she tells me that she never checked the prices of NOACs with her pharmacy and not sure what the cost would be with her insurance. Therefore, plan to stop Warfarin completely. Once INR is normalized, will plan to start Eliquis (patient prefers Eliquis over Xarelto). I gave her one month supply of Eliquis today for her to take home after discharge. (3) Coronary artery disease: Code(s): I25.10 - Atherosclerotic heart disease of [place] coronary artery without angina pectoris Status: Acute Assessment and Plan: Stable. Continue ASA, Plavix. Patient to be on triple therapy until 07/08/2023, which will be 1 month from the time of her PCI. Can stop ASA after 07/07 and continue with Plavix. Continue Rosuvastatin. (4) Ischemic cardiomyopathy: Code(s): I25.5 - Ischemic cardiomyopathy Status: Acute Assessment and Plan: Stable. Continue Losartan, Metoprolol (5) Mixed hyperlipidemia: Code(s): E78.2 - Mixed hyperlipidemia Status: Acute Assessment and Plan: Continue statin (6) Essential hypertension: Code(s): I10 - Essential (primary) hypertension Status: Acute Assessment and Plan: Stable. Continue Losartan, Metoprolol (7) Acute UTI: Code(s): N39.0 - Urinary tract infection, site not specified Status: Acute Assessment and Plan: On antibiotics as per primary team. Subjective Date/time seen: 06/24/23 14:43 Interval history: Reason for visit: Elevated INR HPI: This is a 77 year old female with the following history: 1. Coronary artery disease, anterior STEMI in April 2023 s/p PCI to the LAD. S/p PCI of LCX in May 2023 2. Ischemic cardiomyopathy with LVEF 25-30% per TTE 04/2023 3. Atrial fibrillation in setting of STEMI with recurrence of AFIB afterwards 4. Hypertension 5. Hyperlipidemia Patient had INR checked 06/21 which showed INR of 11. She was instructed to go to ER. Has some intermittent hematuria, bruising on skin. Has been on Warfarin 5mg once daily. Denies taking any extra doses. However, has never really established baseline Warfarin dosing as she had to stop Warfarin, for staged PCI, had Amiodarone started, and taking antibiotics. INR in the ER today is 7.1. Given 2.5mg PO Vitamin K. Date of service 06/23: Feeling okay today, having some blood in her urine. INR down to 4.9 this AM. Review of Systems Review of Systems: All systems reviewed & are unremarkable except as noted in HPI and below (HPI) Exam Const: General: comfortable and no acute distress HENMT: Mouth: Yes moist mucous membranes Eyes: General: appearance normal, both eyes and all related structures Sclera: sclerae normal Resp: Effort & Inspection: normal respiratory effort Cardio: Rate: regular rate Rhythm: regular rhythm Skin: General skin exam: normal color Neuro: Speech: normal speech Psych:
[2023-06-24] MEDS: PHYTONADIONE 5 MG TABLET PO (15:14)
[2023-06-24 20:59] VITALS: BP 129/56; PULSE 65; RESP 26; TEMP 37.2; O2SAT 97
[2023-06-25 06:00] VITALS: BP 126/65; PULSE 62; RESP 18; TEMP 36.8; O2SAT 97
[2023-06-25 07:53] LABS: Basophils Absolute Auto 0.1 K/mm3 (0.0-0.1); Basophils Percent Auto 1.1 % (0.2-1.2); Eosinophils Absolute Auto 0.3 K/mm3 (0-0.3); Eosinophils Percent Auto 5.3 % (0-4.4); Hematocrit 35.1 % (37.0-47.0); Hemoglobin 10.6 g/dL (12.0-15.0); Immature Granulocyte Absolute 0.02 K/mm3 (0.00-0.031); Immature Granulocyte Percent A 0.4 % (0-0.5); Lymphocytes Absolute Auto 0.93 K/mm3 (0.9-3.2); Lymphocytes Percent Auto 19.5 % (18.3-44.2); Mean Corpuscular HGB Conc 30.2 g/dl (32-36); Mean Corpuscular Hemoglobin 24.7 pg (26-34); Mean Corpuscular Volume 81.8 fl (80-100); Mean Platelet Volume 9.1 fl (7.4-10.4); Monocytes Absolute Auto 0.6 K/mm3 (0.1-0.6); Monocytes Percent Auto 11.6 % (2.6-8.5); Neutrophils Percent Auto 62.1 % (45.5-73.1); Platelet Count Result 308 k/mm3 (150-375); Red Blood Count 4.29 M/mm3 (4.2-5.4); Red Cell Distribution Width 14.5 % (11.5-14.5); White Blood Count 4.8 K/mm3 (4.5-10.0)
[2023-06-25 08:02] LABS: Alanine Aminotransferase 13 U/L (6-35); Albumin Level 3.9 g/dL (3.5-5.1); Alkaline Phosphatase 72 U/L (38-126); Anion Gap 7 mmol/L (4-12); Aspartate Amino Transferase 25 U/L (14-36); Bilirubin,Total 0.7 mg/dL (0.2-1.3); Blood Urea Nitrogen 15 mg/dL (7-17); Carbon Dioxide 24 mmol/L (22-30); Chloride 111 mmol/L (98-107); Estimated CRCL calculation 35 ml/min; Estimated Glomerular Filt Rate 44; Glucose 129 mg/dL (65-110); Magnesium 2.2 mg/dL (1.6-2.3); Potassium 3.8 mmol/L (3.4-5.0); Sodium 142 mmol/L (137-145)
[2023-06-25 08:09] LABS: INR 1.6; Prothrombin Time 20.5 Seconds (11.1-14.7)
[2023-06-25 08:10] LABS: Partial Thromboplastin Time 43.1 Seconds (22.3-36.8)
[2023-06-25] MEDS: PANTOPRAZOLE 40 MG TABLET PO (08:41)
[2023-06-25 08:42] VITALS: PULSE 62; PULSE 64
[2023-06-25] MEDS: ASPIRIN 81 MG CHEWABLE TABLET PO (08:42)
[2023-06-25] MEDS: ROSUVASTATIN 10 MG TABLET 20 MG PO (08:42)
[2023-06-25] MEDS: METOPROLOL SUCCINATE EXT REL 50 MG TABCR PO (08:42)
[2023-06-25] MEDS: AMIODARONE HCL 200 MG TABLET PO (08:42)
[2023-06-25] MEDS: LOSARTAN POTASSIUM 25 MG TABLET 50 MG PO (08:43)
[2023-06-25] MEDS: CLOPIDOGREL BISULFATE 75 MG TABLET PO (08:43)
--- NOTE | 2023-06-25 08:45 | PM.PNCARD ---
Progress Note: A&P Assessment and Plan (1) Supratherapeutic INR: Code(s): R79.1 - Abnormal coagulation profile Status: Acute Assessment and Plan: INR improved from 7.1 to 4.9 after getting Vitamin K 2.5mg PO. Had one time dose PO Vitamin K 5mg yesterday and INR 1.6 today. Patient is on Warfarin for stroke prophylaxis for atrial fibrillation. Started on Warfarin because she was worried about the cost of NOACs, however, she tells me that she never checked the prices of NOACs with her pharmacy and not sure what the cost would be with her insurance. Therefore, plan to stop Warfarin completely. INR 1.6 today. Will start Eliquis today (patient prefers Eliquis over Xarelto). She has a one month supply of Eliquis for her to take home after discharge. (2) Paroxysmal atrial fibrillation: Code(s): I48.0 - Paroxysmal atrial fibrillation Status: Acute Assessment and Plan: Patient is on Warfarin for stroke prophylaxis for atrial fibrillation. Started on Warfarin because she was worried about the cost of NOACs, however, she tells me that she never checked the prices of NOACs with her pharmacy and not sure what the cost would be with her insurance. Therefore, plan to stop Warfarin completely. Once INR is normalized, will plan to start Eliquis (patient prefers Eliquis over Xarelto). I gave her one month supply of Eliquis today for her to take home after discharge. (3) Coronary artery disease: Code(s): I25.10 - Atherosclerotic heart disease of [place] coronary artery without angina pectoris Status: Acute Assessment and Plan: Stable. Continue ASA, Plavix. Patient to be on triple therapy until 07/08/2023, which will be 1 month from the time of her PCI. Can stop ASA after 07/07 and continue with Plavix. Continue Rosuvastatin. (4) Ischemic cardiomyopathy: Code(s): I25.5 - Ischemic cardiomyopathy Status: Acute Assessment and Plan: Stable. Continue Losartan, Metoprolol (5) Mixed hyperlipidemia: Code(s): E78.2 - Mixed hyperlipidemia Status: Acute Assessment and Plan: Continue statin (6) Essential hypertension: Code(s): I10 - Essential (primary) hypertension Status: Acute Assessment and Plan: Stable. Continue Losartan, Metoprolol (7) Acute UTI: Code(s): N39.0 - Urinary tract infection, site not specified Status: Acute Assessment and Plan: On antibiotics as per primary team. Subjective Date/time seen: 06/25/23 08:45 Interval history: Reason for visit: Elevated INR HPI: This is a 77 year old female with the following history: 1. Coronary artery disease, anterior STEMI in April 2023 s/p PCI to the LAD. S/p PCI of LCX in May 2023 2. Ischemic cardiomyopathy with LVEF 25-30% per TTE 04/2023 3. Atrial fibrillation in setting of STEMI with recurrence of AFIB afterwards 4. Hypertension 5. Hyperlipidemia Patient had INR checked 06/21 which showed INR of 11. She was instructed to go to ER. Has some intermittent hematuria, bruising on skin. Has been on Warfarin 5mg once daily. Denies taking any extra doses. However, has never really established baseline Warfarin dosing as she had to stop Warfarin, for staged PCI, had Amiodarone started, and taking antibiotics. INR in the ER today is 7.1. Given 2.5mg PO Vitamin K. Date of service 06/23: Feeling okay today, having some blood in her urine. INR down to 4.9 this AM. Date of service 06/25/2023: Feels well this morning and has no complaints. INR has normalized, 1.6 today. Review of Systems Review of Systems: All systems reviewed & are unremarkable except as noted in HPI and below (HPI) Exam Const: General: comfortable and no acute distress HENMT: Mouth: Yes moist mucous membranes Eyes: General: appearance normal, both eyes and all related structures Sclera: sclerae normal Neck: Neck: supple Resp: Effort & Inspection: normal respiratory effort Cardio: Rate: regular rate
[2023-06-25 08:46] VITALS: O2SAT 97
--- NOTE | 2023-06-25 10:06 | PM.DS ---
DS: Admitting Diagnosis Discharge Date 06/25/23 Admitting Diagnosis Supratherapeutic INR UTI Coronary artery disease Iron deficiency anemia Essential hypertension DS: Discharge Diagnosis Discharge Diagnosis (1) Supratherapeutic INR: Code(s): R79.1 - Abnormal coagulation profile Status: Acute (2) UTI (urinary tract infection): Code(s): N39.0 - Urinary tract infection, site not specified Status: Acute (3) Coronary artery disease: Code(s): I25.10 - Atherosclerotic heart disease of [place] coronary artery without angina pectoris Status: Acute (4) Iron deficiency anemia: Code(s): D50.9 - Iron deficiency anemia, unspecified Status: Acute (5) Essential hypertension: Code(s): I10 - Essential (primary) hypertension Status: Acute DS: Summary Hospital Course Reason for hospitalization: Supratherapeutic INR UTI Coronary artery disease Iron deficiency anemia Essential hypertension Hospital Course: 06/24/23: This is a 77-year-old female with significant past medical history AFib/stroke on Coumadin from April of this year who presented to the hospital on 06/23/2023 with abnormal labs.? Patient presented with a supratherapeutic INR of 11. ? Warfarin was placed on hold.? Of note she was recently diagnosed with a urinary tract infection and had some hematuria for 7-10 days.? She was placed on cephalexin 500 mg b.i.d. by her primary care physician.? She is had 2 doses since then.? Workup in the hospital included a chest x-ray which shows mild central congestive changes.? Initial labs revealed a hemoglobin of 10.7, INR 7.1, creatinine 1.4, EGFR 37.? She also had a UA which showed 1+ urine protein, 3+ urine blood, 2+ leukocytes, greater than 100 urine RBC, greater than 100 urine WBC, 3+ bacteria, presence of white blood cell casts, many urine squamous epithelial cells.? Urine culture was obtained and is pending. On examination today patient is alert and oriented x3, lying in the bed. is at the bedside. Patient denies any fever, chills, nausea, vomiting, diarrhea, abdominal pain, chest pain, shortness of breath.? Patient endorses dysuria and hematuria still.? Urine culture is pending. Continue with Rocephin for now.Labs today shown hemoglobin of 9.9, INR is now down to 4.9, sodium 136, creatinine 1.2, EGFR 44. 5/05/15: Patient denies any new complaints today. Labs showing hemoglobin 10.6, INR down to 1.6, creatinine 1.2, EGFR 40. Urine culture shows no growth on final read. Rocephin was discontinued. We will restart patient on Eliquis per AFib protocol. She is stable for discharge at this time. She will need to follow up with her cardiology team in the next 2 weeks. Final diagnosis: Supratherapeutic INR, abnormal urinalysis Status at Discharge Cognitive/behavioral status at discharge: Alert oriented x3 Functional status at discharge: independent ambulation Overall status at discharge: patient is progressing back to baseline Time Spent with Patient Time attestation: Total time spent providing and/or coordinating discharge services: Time spent: Greater than 30 minutes Exam Narrative: General: In no acute distress, well nourished Head: atraumatic, no encephalopathy Eyes: EOMI, PERRLA, sclera clear ENT: moist mucous membranes, nasal passages clear Neck: supple, no JVD, no adenopathy, trachea midline Cardiac: Normal S1 and S2. RRR, No murmur, gallops or friction rubs, peripheral pulses intact. Respiratory: Lungs clear to auscultation, no adventitious lung sounds, currently on room air Gastrointestinal: soft, non-distended, non-tender, normoactive bowel sounds. : voiding without difficulty, reports hematuria, and dysuria Extremities: moves all extremities well, no edema, good ROM, strength 5/5 Skin: clean, dry, intact. No wounds or lesions. Neuro: Alert and oriented x4, cranial nerves intact, no neuro deficits. Psych: normal mood, normal affect, interactive DS: Data Data
[2023-06-25] MEDS: APIXABAN 5 MG TABLET PO (10:54)
== END 2023-06-25 12:25 | disposition home or self-care (01) ==
LOC: ANHED 07:42 → ANH2MED 09:54
PROVIDERS: Nurse Practitioner Acute Care; Student in an Organized Health Care Education/Training Program; Admitting Provider General Practice; Emergency Provider Emergency Medicine; Visit Provider Internal Medicine
DX: R79.1 Abnormal coagulation profile (principal); N39.0 Urinary tract infection, site not specified; I12.9 Hypertensive chronic kidney disease with stage 1 through stage 4 chronic kidney disease, or unspecified chronic kidney disease; N18.9 Chronic kidney disease, unspecified; I48.0 Paroxysmal atrial fibrillation; D50.9 Iron deficiency anemia, unspecified; E78.5 Hyperlipidemia, unspecified; I25.10 Atherosclerotic heart disease of native coronary artery without angina pectoris; I25.2 Old myocardial infarction; I25.5 Ischemic cardiomyopathy; Z95.5 Presence of coronary angioplasty implant and graft; Z79.82 Long term (current) use of aspirin; Z79.01 Long term (current) use of anticoagulants; Z79.02 Long term (current) use of antithrombotics/antiplatelets
CPT/HCPCS: 36415; 80048; 80053; 81001; 83735; 85025; 85610; 85730; 87086; 96365; 96376; 99285; A9270; G0378; J0696

== ENCOUNTER 2023-08-11 00:04 | Day surgery (SDC) | payer MEDICARE, SELFPAY ==
[2023-07-28 15:19] VITALS: BMI 32.1
--- NOTE | 2023-07-28 15:25 | PC.NURSE ---
Report to the Outpatient Waiting Room, entrance under the green pavilion located off [facility], at time ___714____ on date __08/11/23 . Planned Procedure Time: ___914____. Time changes happen often and if your time is changed the preop area will call you the afternoon before. - You and your visitor will be asked to self-screen and do not enter if you have any COVID symptoms. - A mask is optional within the hospital at this time. - No food/fluids from midnight until time of surgery Take the following medications with a SIP of water the morning of surgery: _AMIODARONE, METOPROLOL, & NITROGLYCERIN IF NEEDED_ DO NOT STOP ANY OF YOUR OTHER PRESCRIPTION MEDICATIONS PRIOR TO SURGERY ?EXCEPT THE FOLLOWING Medications to discontinue - _ELIQUIS, ASPIRIN, CLOPIDOGREL INSTRUCTED BY DR. MENG_ Date to take last dose Please no make-up, nail tristanian, hairspray, perfume, deodorant, or body powder the day of surgery. No jewelry (including any body piercings) or valuables the day of surgery, leave them at home. Please take a shower or bath the night before, or the morning of, surgery with an antibacterial soap. Wear comfortable, loose fitting clothing. Children are encouraged to wear pajamas. - Jewelry must be removed prior to entering the operating room. Rings and piercings that are not removed may be cut off. - The hospital will not accept responsibility for valuables. - Please leave all valuables, including medications, at home the day of surgery. If you are going home after surgery, a licensed bookmobile driver must drive you home. - NO public transportation without another adult if you receive anesthesia. - We recommend that an adult stay with you for 24 hours following discharge. - We also recommend that you do not drive, make important decision, drink alcoholic beverages, or take any drugs that were not prescribed by your health care provider for at least 24 hours after your discharge time. For Pediatric surgeries, we recommend two adults accompany the child home. Follow any additional instructions given to you from your surgeon. If you or anyone in your household have experienced Covid symptoms in the past week, please notify your surgeon or the nurse liaison at the phone number below for possible testing. Telephone instructions given to ____PT and asked if any additional questions and then verbalized understanding. Patient advised to call surgeon office or pre surgery nurse liaison [phone] if any additional questions.
--- NOTE | 2023-08-10 16:00 | WPDANESEPPF ---
Anes - Initial Pre Proc Eval Procedure: Operation Date: 08/11/23 09:15 Proposed Procedures p Right Middle Finger Mass Excision - Justin Jansen MD Date/Time: 08/10/23 16:00 Surgeon: Justin Jansen MD Pre Op Diagnosis: localized swelling mass right upper limb Patient Data Age: 77 Gender: F Height: 1.57 m Weight: 79.54 kg Allergies Allergy/AdvReac Type Severity Reaction Status Date / Time No Known Allergies Allergy Mild Verified 08/02/23 10:15 Home Medications Medication Instructions Recorded Confirmed Type ferrous sulfate 325 mg (65 mg 325 mg PO EVERY OTHER DAY 05/08/23 07/28/23 History iron) tablet,delayed release nitroglycerin 0.4 mg sublingual 0.4 mg sublingual Q5MIN PRN Chest 05/11/23 07/28/23 Rx tablet (Nitrostat) Pain 30 days #10 tabs metoprolol succinate 50 mg 50 mg PO QAM #30 tabs 05/23/23 07/28/23 Rx tablet,extended release 24 hr pantoprazole 40 mg tablet,delayed 40 mg PO 2XW 05/31/23 07/28/23 History release amiodarone 200 mg tablet (Pacerone) 200 mg PO DAILY@0800 #30 tabs 06/01/23 07/28/23 Rx aspirin 81 mg chewable tablet 81 mg PO DAILY@0800 #7 tabs 06/01/23 07/28/23 Rx (Children's Aspirin) clopidogrel 75 mg tablet 75 mg PO DAILY #30 tabs 06/01/23 07/28/23 Rx losartan 25 mg tablet 50 mg PO DAILY 06/23/23 07/28/23 History rosuvastatin 10 mg tablet (Crestor) 20 mg PO DAILY 06/23/23 07/28/23 History apixaban 5 mg tablet (Eliquis) 5 mg PO Q12HR #60 tabs 06/25/23 07/28/23 Rx tramadol 50 mg tablet 50 mg PO Q6H PRN pain #12 tabs 08/11/23 Rx Patient hx anesthesia problems: none Family hx anesthesia problems: none Results Review: All pre-operative results and documents have been reviewed as part of the pre-operative evaluation. [facility] Past Medical History Medical History (Updated 06/18/24 @ 16:01 by Luis Armando Carver DO) Atrial fibrillation Chronic kidney disease Coronary artery disease Anterior wall TX 05/08/2023 status post drug-eluting stent to proximal LAD. Essential hypertension Hyperlipidemia Iron deficiency anemia Ischemic cardiomyopathy EF 25 to 30% in April 2023. Mixed hyperlipidemia Paroxysmal atrial fibrillation ST elevation myocardial infarction (STEMI) of anterior wall (05/08/23) Surgical History Surgical History History of cardiac catheterization History of cholecystectomy History of coronary artery stent placement History of knee replacement procedure of left knee History of surgical amputation of finger of right hand Family History Family History (Updated 06/29/23 @ 15:17 by Elisa Kim RN) Mother Hypercholesteremia Father Hypercholesteremia COPD (chronic obstructive pulmonary disease) Pulmonary disease Heart attack Other Diabetes mellitus Hypertension Social History Social History Social History: Surrogate medical decision maker: Sukhwinder Pitts, spouse. Code status: Full code. Smoking status: Never smoker Second hand tobacco smoke exposure: No Alcohol intake: never Drinks per week: 1 Substance use: never Substance use type: does not use Do You Feel Safe in your Home?: Yes Lack of Transportation: No Lack of Food: Never True Current Housing: I Have Housing Concerned About Future Housing: No Difficulty Paying Gas/Electric Bills: No Difficulty Paying for Meds: No Currently Unemployed: No Education: Grade School Difficulty w/ Childcare or Family Care: No Living arrangements: with family Spiritual care concerns: No Anes - Eval Final PreProcedure Day of Procedure 08/10/23 16:00 Patient weight: obese Heart: regular rate and rhythm Lungs: clear to auscultation Airway: Mallampati scale class II Neurological: alert and oriented Last oral intake: >/= 8 hours ASA classification: III Emergent: no Anesthetic plan: proceed Anesthesia type and monitoring: octavia
--- NOTE | 2023-08-11 06:51 | WPDHPUPDATE1 ---
History and Physical Update Update Date/Time: 08/11/23 06:51 Patient seen and examined in pre-operative holding area. No interval change in medical history or symptoms. Patient recalls previous discussion of benefits and alternatives to procedure. Continues to desire to proceed with right middle finger mass excision . Reviewed procedure, post-op expectations and risks including but not limited to bleeding, infection, injury to tendon/nerve/vessel, decreased hand function, stiffness, RSD, no change or worsening of symptoms, recurrence. I discussed the possible use of assistants and their participation in the case. Patient stated understanding and signed the consent form wishing to proceed.
--- NOTE | 2023-08-11 06:51 | W.PM.PROC2 ---
Procedure Note - Detailed Date of Procedure 08/11/23 Pre-op Diagnosis localized swelling mass right upper limb Post-op Diagnosis Same Procedure Performed excision right middle finger mass Surgeon Justin Jansen MD Rag Cutting Machine Operator jeffery meza pa-c Anesthesia MAC Description of Procedure INFORMED CONSENT: The patient was seen and examined and marked in the pre-op area.? The patient signed the consent form. PROCEDURE IN DETAIL:The patient taken back to OR on the stretcher in supine position. Time out performed with anesthesia, surgeon and staff agreeing on patient's name site and surgery to be performed SCDs were placed on the lower extremities and inflated. A tourniquet was placed on {right} upper extremity and antibiotics given IV After anesthesia administered sedation I injected {4}cc 1%lido and 0.5% marcaine plain at the operative site The?{right upper extremity}?was prepped and draped in sterile fashion the??{right upper extremity} was? exsanguinated with Esmarch bandage and tourniquet inflated to 225mmHg I proceeded with making an a Branden incision over the right middle finger mass going obliquely across the PIP joint flexion crease through skin and dermis with a 15 blade scalpel utilizing her previous healed incisions. Littler scissors were used to spread through the subcutaneous tissue to the deeper tissue identifying the palpable mass around the ulnar aspect of the digit near the neurovascular bundle which may be consistent with suture granuloma and scar. I proceeded with circumferential dissection around the mass off of the neurovascular bundle. The fds and fdp tendons were inspected and mild tenolysis was performed off of the volar skin flap noting scar from previous procedure. The Neurovascular bundle was protected throughout the procedure. After the mass was excised I irrigated with normal saline and closed the skin with 4-0 chromic. A dressing of xeroform, 4x4, and tube gauze was applied after the tourniquet was let down noting the finger was warm and well perfused. The patient was then awaken from anesthesia and transferred to the recovery room in stable condition.? Complications - none EBL- 1cc Disposition - home in stable conditions jeffery meza pa-c was essential for positioning, retraction, closure and dressing placement [facility] Billing Surgery - Charge Forward: Surgery Billing ([id number] for jeffery)
[2023-08-11 08:00] VITALS: BP 162/75; PULSE 67; RESP 16; TEMP 36.2; O2SAT 98
[2023-08-11] MEDS: LACTATED RINGERS 1,000 ML 30 ML IV CONT (08:00)
[2023-08-11] MEDS: ceFAZolin 2 GM/D5W 50 ML 2 GM/50 ML BAG IVPB (08:51)
[2023-08-11] MEDS: LIDOCAINE HCL 1% LOCAL INJ 20 ML VIAL 10 ML INFILTRATE (08:54)
[2023-08-11 09:13] VITALS: BP 151/69; PULSE 58; RESP 14; O2SAT 98
[2023-08-11 09:45] VITALS: BP 152/62; PULSE 53; RESP 16; O2SAT 95
[2023-08-11 10:15] VITALS: BP 158/62; PULSE 53; RESP 16
== END 2023-08-11 10:29 | disposition home or self-care (01) ==
PROVIDERS: Visit Provider Plastic Surgery
PROC: (CPT 26115; principal; 2023-08-11 09:15)
DX: M79.89 Other specified soft tissue disorders (principal); I12.9 Hypertensive chronic kidney disease with stage 1 through stage 4 chronic kidney disease, or unspecified chronic kidney disease; N18.9 Chronic kidney disease, unspecified; I25.5 Ischemic cardiomyopathy; D50.9 Iron deficiency anemia, unspecified; I25.10 Atherosclerotic heart disease of native coronary artery without angina pectoris; I25.2 Old myocardial infarction; E78.2 Mixed hyperlipidemia; I48.0 Paroxysmal atrial fibrillation; Z95.5 Presence of coronary angioplasty implant and graft; Z79.02 Long term (current) use of antithrombotics/antiplatelets; Z79.01 Long term (current) use of anticoagulants; Z79.82 Long term (current) use of aspirin; E66.9 Obesity, unspecified; Z68.32 Body mass index [BMI] 32.0-32.9, adult
CPT/HCPCS: 26115; 88304; J0690; J2250; J2405; J3010; J7120

== ENCOUNTER 2023-09-06 10:00 | Outpatient (RCR) | payer MEDICARE, SELFPAY ==
[2023-06-29 16:18] VITALS: PULSE 64
== END 2023-09-06 11:13 | disposition home or self-care (01) ==
LOC: ANHCPREHAB 10:00
PROVIDERS: Visit Provider Specialist
DX: Z95.5 Presence of coronary angioplasty implant and graft (principal); I50.89 Other heart failure
CPT/HCPCS: 93798

== ENCOUNTER 2024-10-17 10:32 | Outpatient (CLI) | payer MEDICARE, SELFPAY ==
--- NOTE | ~2024-10-17 | MR_ITS ---
EXAMINATION: MR wrist LT wo/w con DATE: 10/17/2024 11:23 INDICATION: Left wrist pain TECHNIQUE: Magnetic resonance imaging (MRI) of the left wrist was performed without intravenous contrast. Sequences performed include axial, sagittal and coronal T1-weighted FSE and T2-weighted FS FSE, sagittal PD-weighted FSE, axial T1-weighted FS FSE and postcontrast axial, sagittal and coronal T1-weighted FS FSE. COMPARISON: None FINDINGS: Intrinsic ligaments: The scapholunate and lunotriquetral ligaments are normal. Triangular fibrocartilage complex (TFCC): The triangular fibrocartilage including its foveal and styloid attachments as well as the dorsal and volar radioulnar ligaments are normal. The ulnar collateral ligament, ulnotriquetral ligament and meniscal homologue are normal. Extensor wrist: There is a tear of the ulnar side of the extensor carpi ulnaris some sheath resulting in ulnar subluxation of the otherwise normal extensor carpi ulnaris tendon across the rim of the ECU groove and tip of the ulnar styloid process. Remaining extensor tendons of the wrist are otherwise normal. No tenosynovitis. Flexor wrist: There is a small amount of fluid and prominent surrounding enhancing synovitis along the flexor digitorum superficialis, flexor digitorum profundus and flexor pollicis longus tendons both proximal and distal to the carpal tunnel. There does appear to be compression of the median nerve at the level of the carpal tunnel suggesting possible secondary carpal tunnel syndrome. The flexor tendons appear otherwise normal. Guyon's canal: Guyon's canal including the ulnar nerve and artery are normal. Bones/other: Severe osteoarthritis at the first carpometacarpal joint with severe joint space narrowing and prominent hypertrophic changes. There is a large enhancing erosions with thin sclerotic margins at the base of the first metacarpal. Moderate osteoarthritis at the triscaphe joint. Mild osteoarthritis at the distal radioulnar and wrist joints. No fracture or pathologic marrow replacing process. IMPRESSION: 1. Prominent nonspecific tenosynovitis surrounding the flexor digitorum superficialis, flexor digitorum profundus and flexor pollicis longus tendons both proximal and distal to the carpal tunnel which could be infectious in etiology in the appropriate clinical setting or more likely inflammatory in amelia ology which could be seen with rheumatoid or other inflammatory arthritides, gout or secondary to overuse. Suspicion for gout is elevated by a couple large enhancing juxta articular erosions at the base of the first metacarpal. There appears to be mass effect from the tenosynovitis along the median nerve at the carpal tunnel suggesting possible secondary carpal tunnel syndrome. 2. 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 Reviewed, dictated and finalized at location A. IMPRESSION: 1. Prominent nonspecific tenosynovitis surrounding the flexor digitorum superfi cialis, flexor digitorum profundus and flexor pollicis longus tendons both prox imal and distal to the carpal tunnel which could be infectious in etiology in t he appropriate clinical setting or more likely inflammatory in etiology which c ould be seen with rheumatoid or other inflammatory arthritides, gout or seconda ry to overuse. Suspicion for gout is elevated by a couple large enhancing juxta articular erosions at the base of the first metacarpal. There appears to be ma ss effect from the tenosynovitis along the median nerve at the carpal tunnel gibson ggesting possible secondary carpal tunnel syndrome. 2. 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
== END 2024-10-17 10:33 | disposition home or self-care (01) ==
LOC: MICIMG 10:33
PROVIDERS: Visit Provider Orthopaedic Surgery Hand Surgery
DX: M65.98 Unspecified synovitis and tenosynovitis, other site (principal); M18.12 Unilateral primary osteoarthritis of first carpometacarpal joint, left hand
CPT/HCPCS: 73223; A9577

== ENCOUNTER 2024-10-19 07:42 | Outpatient (CLI) | payer MEDICARE, SELFPAY ==
--- NOTE | ~2024-10-19 | US_ITS ---
US right upper quadrant INDICATION: Abnormal liver enzymes PROCEDURE: Realtime right upper abdominal ultrasound. COMPARISON: No prior studies for comparison. FINDINGS: The pancreas is normal without focal mass or pancreatic ductal dilation. Liver echotexture is normal without focal mass or intrahepatic biliary dilatation. There is normal directional flow in the portal vein. Gallbladder is surgically absent. Common bile duct measures 5 mm. No sonographic Sanchez's sign. IMPRESSION: 1: Normal limited abdominal ultrasound. Reviewed, dictated and finalized at location O.
== END 2024-10-19 07:43 | disposition home or self-care (01) ==
LOC: MICIMG 07:42
DX: R94.5 Abnormal results of liver function studies (principal)
CPT/HCPCS: 76705

== ENCOUNTER 2024-11-17 13:33 | Outpatient (CLI) | payer MEDICARE, SELFPAY ==
--- NOTE | 2024-11-17 | ECG_ITS ---
Test Date: 2024-11-17 14:05:21 Measurements Intervals Virgin Rate: 58 P: 29 HI: 152 QRS: -39 QRSD: 116 T: 121 QT: 425 QTc: 421 Interpretive Statements SINUS BRADYCARDIA LEFT AXIS DEVIATION [QRS AXIS < -30] LEFT VENTRICULAR HYPERTROPHY AND ST-T CHANGE [VOLTAGE CRITERIA PLUS ST/T ABNORMALITY] possible Old anterior IA No previous ECG available for comparison Electronically Signed On 11-17-2024 20:03:07 CDT by Austin Frost M.D.
--- OUTSIDE RECORDS SUMMARY | 2024-11-17 13:43 | XMS_ITS | Clinical Summary ---
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
--- OUTSIDE RECORDS SUMMARY | 2024-11-17 13:43 | XMS_ITS | Encounter Summary ---
Author Organization [facility] Address [address] [place] [address] Care Team Providers Care Geospatial Scientist Name Role Phone Lorelei Roger MD, Rayo Sanchez Primary Care Provider [phone] Gisselle Cassidy MD Unavailable [phone] Fidel Cantu MD Unavailable [phone] Reason for Referral * Cardiology (Routine) - Authorized Specialty Diagnoses / Procedures Referred By Contac t Referred To Contact Diagnoses Pre-op testing Procedures ECG 12 lead Richard Nazario MD [address] [place] [address] [place] [address] Phone: tel: fax: External Order Referral ID Status Reason Start Date Expiration Date V isits Requested Visits Authorized [id number] Authorized 11/16/2024 12/16/2025 1 1 Encounter Details Date Type Department Care Team (Late st Contact Info) Description 11/16/2024 Orders Only [facility] Pre Admit Testing [address] [place] [id number] Luis James MD [facility] [place] [address] Pre-op testing (Primary Dx) Social History Tobacco Use Types Packs/Day Years Used Date Smoking Tobacco: Never Smokeless Tobacco: Never Alcohol Use Standard Drinks/Week Comments Yes 0 (1 standard drink = 0.6 oz pur e alcohol) AUDIT-C Answer Date Recorded Q1: How often do you have a drink containing alc ohol? Monthly or less 11/16/2024 Q2: How many drinks containi ng alcohol do you have on a typical day when you are drinking? 1 or 2 11/16/2024 Q3: How often do you have si x or more drinks on one occasion? Never 11/16/2024 Personal Safety Answer Date Recorded Have you ever been in or are you currently in a harmful physical or emotional relationship or is someone making you feel afraid or unsafe? 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 Gender Identity Not on file Sexual Orientation Not on file documented as of this encounter Plan of Treatment Upcoming Encounters Date Type Department Care Team (Latest Contact Info) Description 11/23/2024 9:00 AM CDT Hospital Encounter [facility] [place] [address] [place] [id number] Alex Pavon MD [facility] [address] [place] [address] 11/23/2024 9:00 AM CDT Anesthesia Event [facility] [place] [address] [place] [id number] Richard Nazario MD [address] [facility] [place] [address] 11/23/2024 9:00 AM CDT - 11/23/2024 9:30 AM CDT Surgery [facility] [place] [address] [place] [id number] Alex Pavon MD [facility] [address] [place] [id number] LEFT EXTENSILE CARPAL TUNNEL RELEASE WITH WRIST FLEXOR SYNOVECTOMY Scheduled Orders Name Type Priority Associated Diagnoses Orde r Schedule ECG 12 lead ECG Routine Pre-op testing Expected: 11/17/2024, Expires: 12/16/2024 Comprehensive metabolic panel Lab Routine Pre-op testing Expected: 11/17/2024, Expires: 12/16/2024 CBC without differential Lab Routine Pre-op testing Expected: 11/17/2024, Expires: 12/16/2024 Scheduled Procedures Name Priority Associated Diagnoses Date/Ti me RELEASE CARPAL TUNNEL Carpal tunnel syndrome on left Other infective (teno)synovitis, left wrist Primary osteoarthritis of first carpometacarpal joint of left hand 11/23/2024 9:00 AM CDT documented as of this encounter Visit Diagnoses Diagnosis Carpal tunnel syndrome on left Carpal tunnel syndrome Other infective (teno)synovitis, left wrist Primary osteoarthritis of first carpometacarpal joint of left hand Pre-op testing- Primary Unspecified pre-operative examination Carpal tunnel syndrome on left Carpal tunnel syndrome Other infective (teno)synovitis, left wrist Primary osteoarthritis of first carpometacarpal joint of left hand documented in this encounter Care Teams Geospatial Scientist Relationship Specialty Start Date End Date Rayo Moseley Jr., MD [address] [place] [address] PCP - General Internal Medicine 01/28/21 Gisselle Cassidy MD [address] [place] [address] Consulting Physician Vascular Surgery 06/10/23 Fidel Cantu MD [address] [facility] [address] [place] [address] [id number] Consulting Physician Cardiovascular Disease 06/10/23 documented as of this encounter
--- OUTSIDE RECORDS SUMMARY | 2024-11-17 13:43 | XMS_ITS | Patient Health Record ---
Author Organization [facility] Address [address] [place], [place] [id number] Care Team Providers Care Wall Steamer Name Role Phone JOSE LUIS Lainez Unavailable [phone] Rayo Moseley Unavailable Unavailable Reason For Referral No Information Medications Medication SIG (Take, Route, Frequency, Duration) Notes Start Date End Date Status Pravastatin Sodium 20 MG Oral Tablet ORAL pravastatin sodium 20 MG Ora l TabletOriginal Medicationpravastatin sodium 20 MG Oral Tablet *Reorder from Empressr for eRx and Interaction Alerts* 4 Active calcium carbonate 600 MG / ergocalciferol 200 UNT Oral Tablet ORAL calcium carbonate 600 MG / ergocalciferol 200 UNT Oral TabletOriginal Medicationcalcium carbonate 600 MG / ergocalciferol 200 UNT Oral Tablet *Reorder from Empressr for eRx and Interaction Alerts* 4 Active Losartan Potassium 50 MG Oral Tablet ORAL losartan potassium 50 MG Ora l TabletOriginal Medicationlosartan potassium 50 MG Oral Tablet *Reorder from Empressr for eRx and Interaction Alerts* 4 Active pantoprazole 40 MG Delayed Release Oral Tablet ORAL pantoprazole 40 MG Delayed Release Oral TabletOriginal Medicationpantoprazole 40 MG Delayed Release Oral Tablet *Reorder from Empressr for eRx and Interaction Alerts* 4 Active cholecalciferol 0.025 MG Oral Capsule ORAL cholecalciferol 0.025 MG Ora l CapsuleOriginal Medicationcholecalciferol 0.025 MG Oral Capsule *Reorder from Empressr for eRx and Interaction Alerts* 4 Active Plan Of Treatment No Information Insurance Providers Payer Name Payer Address Payer Phone Subscriber Number Group Number Insured Name Patient Relationship to Insured Coverage Start Date Coverage End Date Medicare Part B [place] [address] [place] [id number] EDGAR TRAN Self - patient is the insured [employer] [address] [address] [place] [address] [id number] EDGAR TRAN Self - patient is the insured
--- OUTSIDE RECORDS SUMMARY | 2024-11-17 13:43 | XMS_ITS | Encounter Summary ---
Author Organization [facility] Healthcare Address [address] [place] [address] Care Team Providers Care Sales And Support Center Agent Name Role Phone Lorelei Roger MD, Rayo Sanchez Primary Care Provider [phone] Gisselle Cassidy MD Unavailable [phone] Fidel Cantu MD Unavailable Reason for Visit * Reason Onset Date Comments cardiac clearance 11/16/2024 Encounter Details Date Type Department Care Team (Late st Contact Info) Description 11/16/2024 Telephone [facility] Medical Group Orthopedics and Sports Medicine [address] [place] [phone] Alex Pavon MD [address] [place] [address] cardiac clearance Social History Tobacco Use Types Packs/Day Years [...] on file 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 Monthly or less 11/16/2024 11:44 AM CDT Al Fernandez Q2: How many drinks containing alcohol do you have on a typical day when you are drinking? 1 or 2 11/16/2024 11:44 AM CDT Lashanda Fernandez Q3: How often do you have six or more drinks on one occasion? Never 11/16/2024 11:44 AM CDT Lashanda Fernandez documented as of this encounter Miscellaneous Notes * Telephone Encounter - Kate Shin MA - 11/16/2024 2:40 PM CDT Request has been faxed at 12:50pm * Telephone Encounter - Dahlia Jin - 11/16/2024 1:53 PM CDT TLB Please send Cardiac clearance to Dr. Cantu FAX [phone] documented in this encounter Plan of Treatment Upcoming Encounters Date Type Department Care Team (Latest Contact Info) Description 11/23/2024 9:00 AM CDT Hospital Encounter [facility] [place] [address] [place] [address] Alex Pavon MD [address] [facility] [place] [address] 11/23/2024 9:00 AM CDT Anesthesia Event [facility] [place] [address] [place] [address] Richard Nazario MD [address] [facility] [place] [address] 11/23/2024 9:00 AM CDT - 11/23/2024 9:30 AM CDT Surgery [facility] OR [address] [place] [address] Alex Pavon MD [address] [facility] [address] [address] LEFT EXTENSILE CARPAL TUNNEL RELEASE WITH WRIST FLEXOR SYNOVECTOMY Scheduled Procedures Name Priority Associated Diagnoses Date/Ti me RELEASE CARPAL TUNNEL Carpal tunnel syndrome on left Other infective (teno)synovitis, 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
--- OUTSIDE RECORDS SUMMARY | 2024-11-17 13:43 | XMS_ITS | Clinical Summary ---
Author Organization [facility] Address [address] [facility] [address] [place] [address] Care Team Providers Care Rubber Engraver Name Role Phone Lorelei Roger MD, Rayo Sanchez Primary Care Provider [phone] Gisselle Cassidy MD Unavailable [phone] Fidel Cantu MD Unavailable [phone] Allergies No known active allergies Medications pantoprazole DR (PROTONIX) 40 mg EC tablet Take 1 tablet (40 mg total) by mouth 2 (two) times a week Wednesday and Wednesday 2 Active aspirin 81 mg enteric coated tablet Take 1 tablet (81 mg total) by mouth daily Active nitroglycerin (NITROSTAT) 0.[address] 1 tablet (0.4 mg total) under the tongue every 5 (five) minutes as needed 4 Active ferrous sulfate ER 324 mg (65 mg iron) EC tabletIndications:I cj Deficiency Anemia Take 65 mg by mouth every other day Active Jardiance 10 mg tablet Take 1 tablet (10 mg total) by mouth daily 4 Active rosuvastatin (CRESTOR) 20 mg tablet TAKE 1 TABLET(20 MG) BY MOUTH DAILY 30 tablet 6 5 Active clopidogreL (PLAVIX) 75 mg tablet Take 1 tablet (75 mg total) by mouth daily 90 tablet 2 5 Active metoprolol XL (TOPROL-XL) 50 mg extended release tablet TAKE 1 TABLET(50 MG) BY MOUTH EVERY MORNING 90 tablet 1 5 Active furosemide (LASIX) 40 mg tablet Take 0.5 tablets (20 mg total) by mouth daily 5 Active losartan (COZAAR) 50 mg tabletIndications:I schemic cardiomyopathy Take 1 tablet (50 mg total) by mouth daily 5 Active celecoxib (CeleBREX) 100 mg capsule Take 2 capsules (200 mg total) by mouth daily 60 capsule Active Active Problems Problem Noted Date Diagnosed Date Carpal tunnel syndrome on left 11/15/2024 Other infective (teno)synovitis, left wrist 10/24 Primary osteoarthritis of fi rst carpometacarpal joint of left hand 11/15/2024 Left wrist pain 10/16/2024 Left hand pain 10/16/2024 Mass of left wrist 10/16/2024 Left carpal tunnel syndrome 10/16/2024 Arthritis of both hands 10/16/2024 Arthritis of carpometacarpal (CMC) joint of left thumb 10/16/2024 Other thrombophilia 08/05/2023 S/P drug eluting coronary stent placement 2023 Paroxysmal atrial fibrillation 06/09/2023 Ischemic cardiomyopathy 06/09/2023 Hematoma of right forearm 06/09/2023 Pseudoaneurysm following procedure 06/09/2023 Hypercholesterolemia 06/09/2023 Class 1 obesity due to exces s calories with serious comorbidity and body mass index (BMI) of 33.0 to 33.9 in adult 06/09/2023 Coronary artery disease invo lving [place] coronary artery of [place] heart with angina pectoris 06/01/2023 Palpitations 09/30/2021 Encounters Date Type Department Care Team Description 11/16/2024 Telephone [facility] Medical Group Orthopedics and Sports Medicine [address] [place] [address] [address] [place] [address] Alex Pavon MD cardiac clearance 11/16/2024 Orders Only [facility] Pre Admit Testing [facility] [place] [address] Luis James MD Pre-op testing (Primary Dx) 11/15/2024 12:00 PM CDT Office Visit [facility] Medical Group Hand Surgery [address] [place] [address] [address] [place] [address] Alex Pavon MD Arthritis of carpometacarpal (CMC) joint of left thumb (Primary Dx); Left carpal tunnel syndrome; Mass of left wrist 11/07/2024 3:00 PM CDT Therapy [facility] OP Physical Therapy [address] [facility] [address] [place] [address] Left wrist pain; Left hand pain 10/17/2024 - 10/17/2024 11:59 PM CDT Hospital Encounter [facility] Outside Films [address] [place] [address] Discharge Disposition: Discharge to home or self care 10/16/2024 7:45 AM CDT Office Visit [facility] Medical [facility] Hand Surgery [address] [facility] [address] [place] [address] Alex Pavon MD Left wrist pain (Primary Dx); Left hand pain; Mass of left wrist; Left carpal tunnel syndrome; Arthritis of both hands; Arthritis of carpometacarpal (CMC) joint of left thumb 10/16/2024 7:33 AM CDT - 10/16/2024 11:59 PM CDT Hospital Encounter [facility] Diag Imaging [address] [place] [address] Left wrist pain Discharge Disposition: Discharge to home or self care 09/19/2024 Telephone [facility] Accountable Care Organization [address] [place] [address] Klarissa Gatica MA Chart Review (Med adherence) 09/18/2024 Telephone [facility] Cardiology [address] [facility] [address] [place] [phone] Nay Gilliam NP 09/11/2024 1:00 PM CDT Office Visit [facility] Cardiology [address] [place] [address] Nay Gilliam NP Ischemic cardiomyopathy; Heart failure with improved ejection fraction (HFimpEF) ([facility]); Coronary artery disease involving [place] coronary artery of [place] heart with angina pectoris; History of atrial fibrillation; Essential hypertension from Last 3 Months Surgical History Surgery Date Site/Laterality Comments CARDIAC STENT PLACEMENT 05/08/2023 LAD HAND SURGERY CHOLECYSTECTOMY JOINT REPLACEMENT KNEE SURGERY Medical History Medical History Date Comments Hypertension Hyperlipidemia Atrial fibrillation (HCC) Cardiomyopathy Family History Medical History Relation Name Comments Heart disease Father Heart disease Mother Relation Name Status Comments Father Mother Social History Tobacco Use Types Packs/Day Years Used Date Smoking Tobacco: Never Smokeless Tobacco: Never Tobacco Cessation:Counseling Given: Not Answered Alcohol Use Standard Drinks/Week Comments Yes 0 [...] on file 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 Gender Identity Not on file Sexual Orientation Not on file Obstetrics History Last Filed Vital Signs Vital Sign Reading Time Taken Comments Blood Pressure 158/68 09/11/2024 1:02 PM CDT Pulse 61 09/11/2024 1:02 PM CDT Temperature 36.4 C (97.5 F) 06/10/2023 12:21 PM CDT Respiratory Rate 19 06/10/2023 12:21 PM CDT Oxygen Saturation 96% 09/11/2024 1:02 PM CDT Inhaled Oxygen Concentration - - Weight 74.8 kg (165 lb) 11/16/2024 11:43 AM CDT Height 157.5 cm (5' 2) 11/16/2024 11:43 AM CDT Body Mass Index 30.18 11/16/2024 11:43 AM CDT Plan of Treatment Upcoming Encounters Date Type Department Care Team (Latest Contact Info) Description 11/23/2024 9:00 AM CDT Hospital Encounter [facility] [place] [address] [place] [address] Alex Pavon MD [facility] [facility] [place] [address] 11/23/2024 9:00 AM CDT Anesthesia Event [facility] OR [address] [place] [address] Richard Nazario MD [address] [facility] [place] [address] 11/23/2024 9:00 AM CDT - 11/23/2024 9:30 AM CDT Surgery [facility] [place] [address] [place] [address] Alex Pavon MD [address] [facility] [place] [address] LEFT EXTENSILE CARPAL TUNNEL RELEASE WITH WRIST FLEXOR SYNOVECTOMY Scheduled Procedures Name Priority Associated Diagnoses Date/Ti me RELEASE CARPAL TUNNEL Carpal tunnel syndrome on left Other infective (teno)synovitis, left wrist Primary osteoarthritis of first carpometacarpal joint of left hand 11/23/2024 9:00 AM CDT Health Maintenance Due Date Last Done Comments Depression Screening 1945 Hepatitis C Screening 1945 Osteoporosis Screening-Bone Density Scan 1945 DTaP/Tdap/Td Vaccine (1 - Tdap) 10/19/1958 Hepatitis B Screening 10/19/1965 Pneumococcal vaccine 65+ (1 of 2 - PCV) 10/19/1966 Zoster Vaccine (1 of 2) 10/19/1997 Well Visit 65+ 10/19/2012 Covid-19 Vaccine (4 - 2024-2 6 season) 2024 11/25/2020, 05/06/2020, 04/14/2020 Influenza Vaccine (#1) 2024 , 01/05/2020, 01/25/2018, Additional history exists Fall Risk Assessment 11/16/2025 11/16/2024 Breast Cancer Screening-Mammogram Discontinued 09/02/2022, 01/29/2021, 07/20/2018, Additional history exists Medical Devices Implanted Type Area Nibbler Operator Device Identifier Shelf Expiration Date Model / Serial / Lot Vantrix Synergy Xd Monorail 3mm 24mm 144cm Delivery System 1 Access Port [id number] - S0 - [id number] Implanted:Qty: 1 on 06/08/2023 by Viktor Rodriguez MD at [facility] 06/07/2024 [id number] / 0 / [id number] Procedures Procedure Name Priority Date/Time Associated Diagnosis Comments MRI TRANSFER OF OUTSIDE FILMS Routine 10/17/2024 12:00 AM CDT XR HAND LEFT 3 OR MORE VIEWS Schedule Routine, Read Routine (OP Routine) 10/16/2024 7:40 AM CDT Left wrist pain XR WRIST LEFT 3 OR MORE VIEWS Schedule Routine, Read Routine (OP Routine) 10/16/2024 7:40 AM CDT Left wrist pain SCREENING MAMMOGRAM BILATERAL W JAMIN Schedule Routine, Read Routine (OP Routine) 09/02/2022 10:05 AM CDT Screening mammogram for breast cancer from Last 3 Months or Most Recently Relevant to Health Maintenance Results * MRI Outside Reference (10/17/2024 12:00 AM CDT) Narrative CARRIE_JOSE_MHB_MHE - 11/09/2024 2:06 PM CDT This order has been auto-finalized and does not contain a result. us Provider Transcribed Order IMG MRI PROCEDURES Fi nal Result RAD_CLARIO_MHB_MHE * XR Hand Left 3 or More Views (10/16/2024 7:40 AM CDT) Anatomical Region Laterality Modality Upper Extremities, Hand Left Computed Radiography Impressions 10/30/2024 6:35 AM CDT Left hand arthritic changes multiple locations Narrative 10/30/2024 6:35 AM CDT EXAM DESCRIPTION: XR Hand Left 3 or More Views REASON FOR STUDY: Left wrist pain COMPARISON: None FINDINGS: AP lateral and oblique x-rays left hand show severe arthritic changes multiple locations Alex Pavon MD IMG XR PROCEDURES Final Result * XR Wrist Left 3 or More Views (10/16/2024 7:40 AM CDT) Anatomical Region Laterality Modality Upper Extremities, Wrist Left Compute d Radiography Impressions 10/30/2024 6:34 AM CDT Severe left 1st CMC arthrosis, ulnar minus variance Narrative 10/30/2024 6:34 AM CDT EXAM DESCRIPTION: XR Wrist Left 3 or More Views REASON FOR STUDY: Left wrist pain COMPARISON: None FINDINGS: AP lateral and oblique x-rays left wrist show severe arthritic changes highlighted at the 1st CMC joint, ulnar minus variance Alex Pavon MD IMG XR PROCEDURES Final Result * Screening Mammogram Bilateral W Jamin (09/02/2022 10:05 AM CDT) Anatomical Region Laterality Modality Breast Bilateral Mammography Narrative 09/02/2022 3:43 PM CDT Examination: Screening Mammogram Bilateral W Jamin: 09/02/22 Clinical: Screening mammogram for breast cancer. Prior Study Comparisons: Comparison was made to the prior available relevant studies at the time of interpretation. Findings: Bilateral No significant masses, malignant type calcifications, skin thickening, nipple retraction, or significant lymphadenopathy is noted in either breast. The CAD review showed no significant findings. The breasts have scattered areas of fibroglandular density. The patient will be notified of results by letter. Impression: BI-RADS ATLAS category (overall): 2 - Benign There is no mammographic evidence of malignancy. Routine Screening Mammogram in 1 Yr is recommended for bilateral Overall Assessment: 2 - Benign Rayo Moseley Jr., MD IMG MAMMO PROCEDURES Final Result from Last 3 Months or Most Recently Relevant to Health Maintenance Insurance MEDICARE ADVANTAGE [employer] MEDICARE ADVANTAGE Advance Directives For more information, please contact: [phone] * Full Code (Latest Code Status on File) Date Activated Date Inactivated Comments 06/08/2023 4:06 PM 06/10/2023 10:40 AM Care Teams Rubber Engraver Relationship Specialty Start Date End Date Rayo Moseley Jr., MD [address] [place] [address] PCP - General Internal Medicine 01/28/21 Gisselle Cassidy MD [address] [place] [address] Consulting Physician Vascular Surgery 06/10/23 Fidel Cantu MD [address] [facility] [address] [place] [address] Consulting Physician Cardiovascular Disease 06/10/23
--- OUTSIDE RECORDS SUMMARY | 2024-11-17 13:44 | XMS_ITS | Encounter Summary ---
Author Organization [facility] Address 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
--- OUTSIDE RECORDS SUMMARY | 2024-11-17 13:44 | XMS_ITS | Encounter Summary ---
Author Organization [facility] Address 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 Gender Identity Not on file Sexual Orientation Not on file documented as of this encounter Plan of Treatment Not on file documented as of this encounter Procedures Procedure Name Priority Date/Time Associated Diagnosis Comments MAMMO SCREENING BILAT Routine 06/06/2008 4:00 PM CDT documented in this encounter Results * MAMMO SCREENING BILAT (06/06/2008 4:00 PM CDT) Anatomical Region Laterality Modality Breast Bilateral Other 06/06/2008 4:00 PM CDT Narrative 06/07/2008 8:38 AM CDT [address] [address] Admit Date: 06/06/2008 CHELSEANATALIIAJOJO Bearden Sex: F Admit Prov: Date: 1945 Primary Care Prov: CMRN: [id number] Room: [facility] SSN: [id number] IMAGING SERVICES Ordering Prov: CAYETANO YUNG Accession Number: [id number] Interpretation SCREENING MAMMOGRAM Findings: The breasts are almost entirely fat. No significant mass, malignant calcification or architectural distortion is noted. Summary: No mammographic evidence of malignancy. There has been no significant change from prior study of 05/29. Recommendations: Bilateral yearly screening mammogram is recommended. Assessment BIRADS: 1-Negative Recommendation: Normal interval follow-up Dictated by: ANGELINA CAMPOS Electronically signed by: ANGELINA CAMPOS 06/07/2008 08:38 Transcribed: 06/07/2008 08:38 CXZ Procedure Note Angelina Santillan MD - 06/07/2008 [facility] [address] [place], [place] [address] Admit Date: 06/06/2008 MADDIE TRAN Sex: F Admit Prov: Date: 1945 Primary Care Prov: CMRN: [id number] Room: [facility] SSN: [id number] IMAGING SERVICES Ordering Prov: CAYETANO YUNG Interpretation SCREENING MAMMOGRAM Findings: The breasts are almost entirely fat. No significant mass, malignant calcification or architectural distortion is noted. Summary: No mammographic evidence of malignancy. There has been no significant change from prior study of 05/29. Recommendations: Bilateral yearly screening mammogram is recommended. Assessment BIRADS: 1-Negative Recommendation: Normal interval follow-up Dictated by: ANGELINA CAMPOS Electronically signed by: ANGELINA CAMPOS 06/07/2008 08:38 Transcribed: 06/07/2008 08:38 CX[facility] Franci MAMMO ORDERABLES Final Result documented in this encounter Visit Diagnoses Diagnosis Other screening mammogram documented in this encounter
--- OUTSIDE RECORDS SUMMARY | 2024-11-17 13:44 | XMS_ITS | Encounter Summary ---
Author Organization [facility] Address 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 Gender Identity Not on file Sexual Orientation Not on file documented as of this encounter Plan of Treatment Not on file documented as of this encounter Procedures Procedure Name Priority Date/Time Associated Diagnosis Comments MAMMO SCREENING BILAT Routine 05/25/2007 3:49 PM CDT documented in this encounter Results * MAMMO SCREENING BILAT (05/25/2007 3:49 PM CDT) Anatomical Region Laterality Modality Breast Bilateral Other 05/25/2007 3:49 PM CDT Narrative 05/26/2007 3:53 PM CDT [address] [address] Admit Date: 05/25/2007 CHELSEAMARINAJOJO Bearden Sex: F Admit Prov: Date: 1945 Primary Care Prov: CMRN: [id number] [facility] SSN: [id number] IMAGING SERVICES Ordering Prov: CAYETANO YUNG Accession Number: [id number] Interpretation BILATERAL MAMMOGRAM FINDINGS There is a moderate amount of residual fibroglandular tissue. There is no evidence of mass, architectural distortion or suspicious microcalcifications. No change since 05/28. IMPRESSION Normal bilateral mammogram. No evidence of malignancy. ACR ACCREDITED Assessment BIRADS: 1-Negative Recommendation: Normal interval follow-up Dictated by: ANA LILIA OSHEA Electronically signed by: ANA LILIA OSHEA 05/26/2007 15:53 Transcribed: 05/26/2007 15:53 CCM Procedure Note Ana Lilia Oshea - 05/26/2007 [facility] [address] [place], [place] [address] Admit Date: 05/25/2007 MADDIE TRAN Sex: F Admit Prov: Date: 1945 Primary Care Prov: CMRN: [id number] [facility] SSN: [id number] IMAGING SERVICES Ordering Prov: CAYETANO YUNG Interpretation BILATERAL MAMMOGRAM FINDINGS There is a moderate amount of residual fibroglandular tissue. Thereis no evidence of mass, architectural distortion or suspicious microcalcifications. No change since 05/28. IMPRESSION Normal bilateral mammogram. No evidence of malignancy. ACR ACCREDITED Assessment BIRADS: 1-Negative Recommendation: Normal interval follow-up Dictated by: ANA LILIA OSHEA Electronically signed by: ANA LILIA OSHEA 05/26/2007 15:53 Transcribed: 05/26/2007 15:53 CCM [facility] MAMMO ORDERABLES Final Result documented in this encounter Visit Diagnoses Diagnosis Other screening mammogram documented in this encounter
--- OUTSIDE RECORDS SUMMARY | 2024-11-17 13:44 | XMS_ITS | Encounter Summary ---
Author Organization [facility] Address 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
--- OUTSIDE RECORDS SUMMARY | 2024-11-17 13:44 | XMS_ITS | Encounter Summary ---
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
--- OUTSIDE RECORDS SUMMARY | 2024-11-17 13:44 | XMS_ITS | Encounter Summary ---
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
--- OUTSIDE RECORDS SUMMARY | 2024-11-17 13:44 | XMS_ITS | Encounter Summary ---
Author Organization [facility] Address 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
--- OUTSIDE RECORDS SUMMARY | 2024-11-17 13:44 | XMS_ITS | Encounter Summary ---
Author Organization [facility] Address 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
--- OUTSIDE RECORDS SUMMARY | 2024-11-17 13:44 | XMS_ITS | Encounter Summary ---
Author Organization [facility] Address 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
--- OUTSIDE RECORDS SUMMARY | 2024-11-17 13:44 | XMS_ITS | Encounter Summary ---
Author Organization [facility] Address 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
--- OUTSIDE RECORDS SUMMARY | 2024-11-17 13:44 | XMS_ITS | Encounter Summary ---
Author Organization [facility] Address [address] Attn: Epic Prelude ADT [place] [phone] Care Team Providers Care Pest Control Service Representative Name Role Phone Unavailable Primary Care Provider Unavailabl e Encounter Details Date Type Department Care Team (Late st Contact Info) Description 12/17/1994 Outpatient Historical Conversion, History Social History Tobacco Use Types Packs/Day Years Used Date Smoking Tobacco: Never Assessed Comments Unknown Sex and Gender Information Value Date Recorded Sex Assigned at Not on file Legal Sex Female 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
--- OUTSIDE RECORDS SUMMARY | 2024-11-17 13:44 | XMS_ITS | Encounter Summary ---
Author Organization [facility] Address 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
--- OUTSIDE RECORDS SUMMARY | 2024-11-17 13:44 | XMS_ITS | Encounter Summary ---
Author Organization [facility] Address 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
== END 2024-11-17 13:34 | disposition home or self-care (01) ==
DX: Z01.818 Encounter for other preprocedural examination (principal); R93.1 Abnormal findings on diagnostic imaging of heart and coronary circulation
CPT/HCPCS: 93005